=== PATIENT | female | born 1960 | race Caucasian/White ===

== ENCOUNTER 2017-03-02 14:19 | Inpatient (IN) | payer OTHER ==
[2017-03-02] MEDS ORDERED: NS 0.9% 1000 ML* 1,000 ML IV ONE (17:02)
[2017-03-02 17:34] LABS: Hematocrit 33 % (35-47); Hemoglobin 10.8 g/dl (12.0-16.0); Mean Corpuscular HGB Conc 33 g/dl (31-36); Mean Corpuscular Hemoglobin 27 pg (27-31); Mean Corpuscular Volume 83 fL (80-97); Mean Platelet Volume 6 um3 (7.4-10.4); Red Blood Count 3.98 10^6/ul (4.0-5.4); Red Cell Distribution Width 18 % (10.5-15); White Blood Count 6.4 10^3/ul (3.5-10.8)
[2017-03-02 17:49] LABS: ALT 15 U/L (7-52); AST 33 U/L (13-39); Albumin 4.2 g/dL (3.2-5.2); Alkaline Phosphatase 147 U/L (34-104); Amylase 20 U/L (29-103); Anion Gap 8 mmol/L (2-11); BUN/Creatinine Ratio 9.2 (8-20); Blood Urea Nitrogen 6 mg/dL (6-24); C Reactive Protein 39.71 mg/L (< 5.00); CO2 Carbon Dioxide 28 mmol/L (22-32); Chloride 103 mmol/L (101-111); Creatine Kinase 83 U/L (10-223); EGFR African American 121.7 (>60); EGFR Non-African American 94.6 (>60); Globulin 2.9 g/dL (2-4); Glucose 99 mg/dL (70-100); Lipase < 10 U/L (11.0-82.0); Potassium 3.6 mmol/L (3.5-5.0); Sodium 139 mmol/L (133-145); Total Protein 7.1 g/dL (6.4-8.9)
[2017-03-02] MEDS ORDERED: Acetaminophen TAB* 325 MG PO ONE (17:57)
--- NOTE | 2017-03-02 18:05 | RAD ---
INDICATION: Breast carcinoma 2005. Weight loss COMPARISON: None TECHNIQUE: An AP portable view obtained at 1739 hours is submitted. FINDINGS: Bones/Soft Tissues: There are diffuse osteolytic and osteoblastic metastasis. Cardiomediastinal: The cardiomediastinal silhouette is normal. Lungs: There are no infiltrates. Pleura: There are no pleural effusions. Other: None IMPRESSION: DIFFUSE OSTEOLYTIC AND OSTEOBLASTIC METASTASIS. LUNGS CLEAR.
--- NOTE | 2017-03-02 18:05 | RAD ---
INDICATION: Abdominal pain COMPARISON: None TECHNIQUE: Erect and supine views of the abdomen are submitted. FINDINGS: Bones: There are diffuse osteolytic and osteoblastic metastasis. No pathologic fracture is appreciated. Soft tissues: The soft tissues appear normal. The psoas margins are sharp. Bowel gas pattern: Normal Calcifications: There are no abnormal calcifications. Other: None IMPRESSION: DIFFUSE OSTEOLYTIC AND OSTEOBLASTIC METASTASIS.
[2017-03-02 18:21] LABS: Urine Bacteria 1+ (Absent); Urine Bilirubin Negative (Negative); Urine Glucose Negative (Negative); Urine Nitrite Negative (Negative); Urine Sperm Present (Absent)
[2017-03-02] MEDS ORDERED: Ondansetron INJ* 2 MG/ML VIAL IV ONE (18:53)
[2017-03-02] MEDS ORDERED: Morphine INJ* 2 MG/ML 1 ML CARPUJECT IV ONE (18:53)
--- NOTE | 2017-03-02 18:56 | ED ---
Emanuel Aguirre Benjamin, scribed for Jaskaran Evans MD on 03/02/17 at 1719 . Abdominal Pain/Female - HPI Summary HPI Summary: 56yo female c/o ED for decreased appetite, sudden weight loss of 10lb/week for the past 3 weeks and diffuse abdominal pain. Pt also reports generalized body aches, polyuria and polydipsia. Pt is in 12 years remission for breast CA. Pt is edentulous. No hx of DM but positive FHx of DM. - History of Current Complaint Chief Complaint: EDGeneral Stated Complaint: ENTIRE BODY PAIN Time Seen by Provider: 03/02/17 16:41 Hx Obtained From: Patient, Family/Hostage Negotiator Hx Last Menstrual Period: None since 11 years ago. ?: No Onset/Duration: Gradual Onset, Lasting Days Timing: Constant Severity Initially: Moderate Severity Currently: Moderate Pain Intensity: 4 Pain Scale Used: 0-10 Numeric Location: Diffuse Radiates: No Aggravating Factor(s): Nothing Alleviating Factor(s): Nothing Associated Signs and Symptoms: Positive: Urinary Symptoms - polyuria, Decreased Appetite Allergies/Adverse Reactions: Allergies Allergy/AdvReac Type Severity Reaction Status Date / Time Aspirin [ASA] Allergy Rash And Verified 06/27/13 14:28 Itching PMH/Surg Hx/FS Hx/Imm Hx Endocrine/Hematology History: Denies: Hx Diabetes, Hx Thyroid Disease Cardiovascular History: Denies: Hx Congestive Heart Failure, Hx Deep Vein Thrombosis, Hx Hypertension , Hx Myocardial Infarction, Hx Pacemaker/ICD Respiratory History: Denies: Hx Asthma, Hx Chronic Obstructive Pulmonary Disease (COPD), Hx Lung Cancer, Hx Pneumonia, Hx Pulmonary Embolism GI History: Denies: Hx Gall Bladder Disease, Hx Gastrointestinal Bleed, Hx Ulcer, Hx Urosepsis History: Denies: Hx Kidney Stones, Hx Renal Disease Neurological History: Denies: Hx Dementia, Hx Migraine, Hx Seizures, Hx Transient Ischemic Attacks (TIA) Psychiatric History: Reports: Hx Depression - She is on Zoloft for this. Denies: Hx Anxiety, Hx Schizophrenia, Hx Bipolar Disorder - Cancer History Cancer Type, Location and Year: Right Breast Cancer 2003, age 43 - Surgical History Surgery Procedure, Year, and Place: Right Mastectomy Infectious Disease History: No Infectious Disease History: Denies: Hx Hepatitis, Hx Human Immunodeficiency Virus (HIV), History Other Infectious Disease, Traveled Outside the [place] in Last 30 Days - Family History Known Family History: Positive: Diabetes Negative: Cardiac Disease, Hypertension - Social History Alcohol Use: None Substance Use Type: Reports: None Smoking Status (MU): Former Smoker Type: Cigarettes Review of Systems Positive: Other - sudden dramatic weight loss Eyes: Negative ENT: Negative Cardiovascular: Negative Respiratory: Negative Positive: Abdominal Pain, Other - decreased appetite Positive: frequency - increased Positive: Myalgia - body aches Skin: Negative Neurological: Negative Psychological: Normal All Other Systems Reviewed And Are Negative: Yes Physical Exam - Summary Physical Exam Summary: VITAL SIGNS: Reviewed. GENERAL: Patient is a well-developed and nourished female who is lying comfortable in the stretcher. Patient is not in any acute respiratory distress. HEAD AND FACE: No signs of trauma. No ecchymosis, hematomas or skull depressions. No sinus tenderness. EYES: PERRLA, EOMI x 2, No injected conjunctiva, no nystagmus. EARS: Hearing grossly intact. Ear canals and tympanic membranes are within normal limits. MOUTH: Oropharynx within normal limits. Edentulous. NECK: Supple, trachea is midline, no adenopathy, no JVD, no carotid bruit, no c- spine tenderness, neck with full ROM. CHEST: Symmetric, no tenderness at palpation LUNGS: Clear to auscultation bilaterally. No wheezing or crackles. CVS: Regular rate and rhythm, S1 and S2 present, no murmurs or gallops appreciated. ABDOMEN: Soft, non-tender. No signs of distention. No rebound no guarding, and no masses palpated. Bowel sounds are normal. EXTREMITIES: FROM in all major joints, no edema, no cyanosis or clubbing. NEURO: Alert and oriented x 3. No acute neurological deficits. Speech is normal and follows commands. SKIN: Dry and warm Triage Information Reviewed: Yes Vital Signs On Initial Exam: Initial Vitals Temp Pulse Resp BP Pulse Ox 99.9 F 96 20 137/94 98 03/02/17 14:24 03/02/17 14:24 03/02/17 14:24 03/02/17 14:24 03/02/17 14:24 Vital Signs Reviewed: Yes - Julianne Coma Scale Coma Scale Total: 15 Diagnostics - Vital Signs Vital Signs Temp Pulse Resp BP Pulse Ox 03/02/17 17:07 85 20 98 03/02/17 17:06 134/91 03/02/17 16:00 98.8 F 97 20 127/88 100 03/02/17 14:24 99.9 F 96 20 137/94 98 - Laboratory Lab Results: Lab Results 03/02/17 03/02/17 03/02/17 Range/Units 17:17 17:20 17:20 WBC (3.5-10.8) 10^3/ul RBC (4.0-5.4) 10^6/ul Hgb (12.0-16.0) g/dl Hct (35-47) % MCV (80-97) fL MCH (27-31) pg MCHC (31-36) g/dl RDW (10.5-15) % Plt Count (150-450) 10^3/ul MPV (7.4-10.4) um3 Neut % (Auto) (38-83) % Lymph % (Auto) (25-47) % [place] % (Auto) (1-9) % Eos % (Auto) (0-6) % Baso % (Auto) (0-2) % Absolute Neuts (auto) (1.5-7.7) 10^3/ul Absolute Lymphs (auto) (1.0-4.8) 10^3/ul Absolute Monos (auto) (0-0.8) 10^3/ul Absolute Eos (auto) (0-0.6) 10^3/ul Absolute Basos (auto) (0-0.2) 10^3/ul Absolute Nucleated RBC 10^3/ul Nucleated RBC % Sodium 139 (133-145) mmol/L Potassium 3.6 (3.5-5.0) mmol/L Chloride 103 (101-111) mmol/L Carbon Dioxide 28 (22-32) mmol/L Anion Gap 8 (2-11) mmol/L BUN 6 (6-24) mg/dL Creatinine 0.65 (0.51-0.95) mg/dL Est GFR ( Amer) 121.7 (>60) Est GFR (Non-Af Amer) 94.6 (>60) BUN/Creatinine Ratio 9.2 (8-20) Glucose 99 (70-100) mg/dL POC Glucose (mg/dL) 101 H (70-100) mg/dL Calcium 10.0 (8.6-10.3) mg/dL Magnesium 2.0 (1.9-2.7) mg/dL Total Bilirubin 0.40 (0.2-1.0) mg/dL AST 33 (13-39) U/L ALT 15 (7-52) U/L Alkaline Phosphatase 147 H (34-104) U/L Total Creatine Kinase 83 (10-223) U/L C-Reactive Protein 39.71 H (< 5.00) mg/L B-Natriuretic Peptide 74 ( - 100) pg/mL Total Protein 7.1 (6.4-8.9) g/dL Albumin 4.2 (3.2-5.2) g/dL Globulin 2.9 (2-4) g/dL Albumin/Globulin Ratio 1.4 (1-3) Amylase 20 L (29-103) U/L Lipase < 10 L (11.0-82.0) U/L Urine Color Urine Appearance Urine pH (5-9) Ur Specific [place] (1.010-1.030) Urine Protein (Negative) Urine Ketones (Negative) Urine Blood (Negative) Urine Nitrate (Negative) Urine Bilirubin (Negative) Urine Urobilinogen (Negative) Ur Leukocyte Esterase (Negative) Urine WBC (Auto) (Absent) Urine RBC (Auto) (Absent) Ur Squamous Epith Cells (Absent) Urine Bacteria (Absent) Urine Sperm (Absent) Urine Glucose (Negative) 03/02/17 03/02/17 Range/Units 17:20 17:57 WBC 6.4 (3.5-10.8) 10^3/ul RBC 3.98 L (4.0-5.4) 10^6/ul Hgb 10.8 L (12.0-16.0) g/dl Hct 33 L (35-47) % MCV 83 (80-97) fL MCH 27 (27-31) pg MCHC 33 (31-36) g/dl RDW 18 H (10.5-15) % Plt Count 354 (150-450) 10^3/ul MPV 6 L (7.4-10.4) um3 Neut % (Auto) 55.7 (38-83) % Lymph % (Auto) 33.2 (25-47) % [place] % (Auto) 8.8 (1-9) % Eos % (Auto) 1.4 (0-6) % Baso % (Auto) 0.9 (0-2) % Absolute Neuts (auto) 3.5 (1.5-7.7) 10^3/ul Absolute Lymphs (auto) 2.1 (1.0-4.8) 10^3/ul Absolute Monos (auto) 0.6 (0-0.8) 10^3/ul Absolute Eos (auto) 0.1 (0-0.6) 10^3/ul Absolute Basos (auto) 0.1 (0-0.2) 10^3/ul Absolute Nucleated RBC 0 10^3/ul Nucleated RBC % 0 Sodium (133-145) mmol/L Potassium (3.5-5.0) mmol/L Chloride (101-111) mmol/L Carbon Dioxide (22-32) mmol/L Anion Gap (2-11) mmol/L BUN (6-24) mg/dL Creatinine (0.51-0.95) mg/dL Est GFR ( Amer) (>60) Est GFR (Non-Af Amer) (>60) BUN/Creatinine Ratio (8-20) Glucose (70-100) mg/dL POC Glucose (mg/dL) (70-100) mg/dL Calcium (8.6-10.3) mg/dL Magnesium (1.9-2.7) mg/dL Total Bilirubin (0.2-1.0) mg/dL AST (13-39) U/L ALT (7-52) U/L Alkaline Phosphatase (34-104) U/L Total Creatine Kinase (10-223) U/L C-Reactive Protein (< 5.00) mg/L B-Natriuretic Peptide ( - 100) pg/mL Total Protein (6.4-8.9) g/dL Albumin (3.2-5.2) g/dL Globulin (2-4) g/dL Albumin/Globulin Ratio (1-3) Amylase (29-103) U/L Lipase (11.0-82.0) U/L Urine Color Yellow Urine Appearance Clear Urine pH 6.0 (5-9) Ur Specific [place] 1.004 L (1.010-1.030) Urine Protein Negative (Negative) Urine Ketones Negative (Negative) Urine Blood 1+ H (Negative) Urine Nitrate Negative (Negative) Urine Bilirubin Negative (Negative) Urine Urobilinogen Negative (Negative) Ur Leukocyte Esterase 3+ H (Negative) Urine WBC (Auto) Trace(0-5/hpf) (Absent) Urine RBC (Auto) Trace(0-2/hpf) (Absent) Ur Squamous Epith Cells Present H (Absent) Urine Bacteria 1+ H (Absent) Urine Sperm Present H (Absent) Urine Glucose Negative (Negative) Result Diagrams: 03/02/17 17:20 03/02/17 17:20 Lab Statement: Any lab studies that have been ordered have been reviewed, and results considered in the medical decision making process. - Radiology CXR Xray Interpretation: Positive (See Comments) - IMPRESSION: DIFFUSE OSTEOLYTIC AND OSTEOBLASTIC METASTASIS. LUNGS CLEAR. Radiology Interpretation Completed By: Radiologist - ED physician has reviewed this radiology report and agrees. Abdomin XR Xray Interpretation: Positive (See Comments) Radiology Interpretation Completed By: Radiologist - ED physician has reviewed this radiology report and agrees. - EKG 1721. Cardiac Rate: NL - 76bpm EKG Rhythm: Sinus Rhythm ST Segment: Normal Ectopy: None Abdominal Pain Fem Course/Dx - Course Course Of Treatment: In the ED course an IV access was obtained. Patient was placed in a marine operations coordinator. Patient was started with IV fluids. She was given Zofran, Tylenol and morphine for the pain. Labs without any significant abnormality except for slight anemia. CRP 30.7. EKG shows a NSR w/o ST elevations. CXR IMPRESSION: DIFFUSE OSTEOLYTIC AND OSTEOBLASTIC METASTASIS. LUNGS CLEAR. Abdominal X ray impression: IMPRESSION: DIFFUSE OSTEOLYTIC AND OSTEOBLASTIC METASTASIS. I discuss my physical exam, findings and test results with Dr. Harris from the hospitalist services and she agrees to admit patient to his services. Patient is hemodynamically stable alert and oriented x 3. - Diagnoses Differential Diagnosis: Positive: Constipation, Irritable Bowel Syndrome, Pneumonia, Urinary Tract Infection Provider Diagnoses: Osteoblastic metastasis Discharge - Discharge Plan Condition: Stable Disposition: ADMITTED TO [facility] The documentation as recorded by the Emanuel neil Benjamin accurately reflects the service I personally performed and the decisions made by me, Jaskaran Evans MD.
[2017-03-02] MEDS ORDERED: Morphine INJ* 2 MG/ML 1 ML SYRINGE (TWO MG - NEW SYRINGE VERSION) ONE (20:10)
[2017-03-02] MEDS ORDERED: Albuterol 2.5 MG/3 ML NEB.SOL* (0.083%) INH PRN (20:28)
[2017-03-02] MEDS ORDERED: Ondansetron INJ* 2 MG/ML VIAL IV PRN (20:28)
[2017-03-02] MEDS ORDERED: CMCS: Melatonin (NF) 3 MG TAB PO PRN (20:28)
[2017-03-02] MEDS ORDERED: Acetaminophen TAB* 325 MG PO PRN (20:28)
[2017-03-02] MEDS ORDERED: NS 0.9% 1000 ML* 1,000 ML IV SCH (20:30)
--- NOTE | 2017-03-02 21:52 | HP ---
H&P (Free Text) History and Physical: PCP: Beatriz Martinez MD Date/Time: 03/02/20172019 CC: chest & jaw pain HPI: Mrs Downey is a 56YO female HX breast CA 12 years ago treated with R mastectomy & chemoTX (no radioTX) who presents reporting onset 2-3 months ago of L jaw pain radiating down into the neck made worse by chewing and central chest discomfort which she has difficulty characterizing, but which is made worse by deep inspiration and heavy lifting. During this time period she has lost in excess of 20 pounds, now to the degree that her pants "just fall off". She denies any new lumps/bumps, bloody or black stools, F/C, or N/V. She does report recent development of N/T on the L side of the face. PMedHx breast CA 2004 treated with R mastectomy & chemoTX at [facility] Ambulatory Orders Nursing to reconcile. Hormone For Breast Cancer 11/06/15 One A Day Vitamin For Women 2 tab PO DAILY 11/06/15 Allergies Aspirin [ASA] Allergy (Verified 06/27/13 14:28) Rash And Itching PSurgHx R mastectomy tubal ligation SocHx: quit smoking 2004, no alcohol or recreational drugs; lives with her ; full code status FamHx: Mother passed in her 70s from CAD with DM2. Father is estranged. Of 5 brothers, 3 are alive and reportedly healthy, one of SIDS and another reportedly of neglect "starved". Of 2 half-sisters, both are thought to be healthy. ROS: as above, otherwise reviewed and all were negative vitals: Vital Signs Temp 36.6 C 03/02/17 22:38 Pulse 81 03/02/17 22:38 Resp 18 03/02/17 22:47 BP 144/81 03/02/17 22:38 Pulse Ox 99 03/02/17 22:38 Intake & Output 03/02/17 03/02/17 03/03/17 11:59 23:59 11:59 Intake Total 1000 Balance 1000 Weight 72.847 kg Intake: IV Fluids 1000 Other: Estimated Void Medium # Voids 1 Constitutional: NAD, normally developed, overweight white female HEENM: atraumatic; sclera/conjunctiva: non-icteric/clear; hearing: clinically intact; oropharynx: clear, mucosa moist Neck: soft tissue: non-tender; thyroid: normal Pulmonary: clear to auscultation bilaterally, good aeration, no accessory muscle use CV: RR/RR, normal S1S2, no carotid bruit, no jugular venous distention, 2+ B DP/ PT, no edema Abdominal: soft, non-distended, non-tender, no rebound/guarding/rigidity, normoactive bowel sounds, no hepatosplenomegaly or masses, no costovertebral angle tenderness Musculoskeletal: general: grossly intact; gait: stable Integumental: R mastectomy; otherwise normal appearance and texture of exposed skin Neurological cranial nerves III/IV/: symmetric light reflex, EOMI/PERRLA VII: slight L facial asymmetry VIII: hearing clinically intact IX/X: symmetric palatal motion, no dysarthria XII: midline tongue protrusion, normal voice articulation Psychiatric orientation: AA&O to PPS affect: calm, flat mood: cooperative eye contact: fair to good content: reliable responses: timely insight: fair Testing: Lab Results 03/02/17 03/02/17 03/02/17 Range/Units 17:17 17:20 17:20 WBC (3.5-10.8) 10^3/ul RBC (4.0-5.4) 10^6/ul Hgb (12.0-16.0) g/dl Hct (35-47) % MCV (80-97) fL MCH (27-31) pg MCHC (31-36) g/dl RDW (10.5-15) % Plt Count (150-450) 10^3/ul MPV (7.4-10.4) um3 Neut % (Auto) (38-83) % Lymph % (Auto) (25-47) % [place] % (Auto) (1-9) % Eos % (Auto) (0-6) % Baso % (Auto) (0-2) % Absolute Neuts (auto) (1.5-7.7) 10^3/ul Absolute Lymphs (auto) (1.0-4.8) 10^3/ul Absolute Monos (auto) (0-0.8) 10^3/ul Absolute Eos (auto) (0-0.6) 10^3/ul Absolute Basos (auto) (0-0.2) 10^3/ul Absolute Nucleated RBC 10^3/ul Nucleated RBC % Sodium 139 (133-145) mmol/L Potassium 3.6 (3.5-5.0) mmol/L Chloride 103 (101-111) mmol/L Carbon Dioxide 28 (22-32) mmol/L Anion Gap 8 (2-11) mmol/L BUN 6 (6-24) mg/dL Creatinine 0.65 (0.51-0.95) mg/dL Est GFR ( Amer) 121.7 (>60) Est GFR (Non-Af Amer) 94.6 (>60) BUN/Creatinine Ratio 9.2 (8-20) Glucose 99 (70-100) mg/dL POC Glucose (mg/dL) 101 H (70-100) mg/dL Calcium 10.0 (8.6-10.3) mg/dL Magnesium 2.0 (1.9-2.7) mg/dL Total Bilirubin 0.40 (0.2-1.0) mg/dL AST 33 (13-39) U/L ALT 15 (7-52) U/L Alkaline Phosphatase 147 H (34-104) U/L Total Creatine Kinase 83 (10-223) U/L C-Reactive Protein 39.71 H (< 5.00) mg/L B-Natriuretic Peptide 74 ( - 100) pg/mL Total Protein 7.1 (6.4-8.9) g/dL Albumin 4.2 (3.2-5.2) g/dL Globulin 2.9 (2-4) g/dL Albumin/Globulin Ratio 1.4 (1-3) Amylase 20 L (29-103) U/L Lipase < 10 L (11.0-82.0) U/L Urine Color Urine Appearance Urine pH (5-9) Ur Specific [place] (1.010-1.030) Urine Protein (Negative) Urine Ketones (Negative) Urine Blood (Negative) Urine Nitrate (Negative) Urine Bilirubin (Negative) Urine Urobilinogen (Negative) Ur Leukocyte Esterase (Negative) Urine WBC (Auto) (Absent) Urine RBC (Auto) (Absent) Ur Squamous Epith Cells (Absent) Urine Bacteria (Absent) Urine Sperm (Absent) Urine Glucose (Negative) 03/02/17 03/02/17 Range/Units 17:20 17:57 WBC 6.4 (3.5-10.8) 10^3/ul RBC 3.98 L (4.0-5.4) 10^6/ul Hgb 10.8 L (12.0-16.0) g/dl Hct 33 L (35-47) % MCV 83 (80-97) fL MCH 27 (27-31) pg MCHC 33 (31-36) g/dl RDW 18 H (10.5-15) % Plt Count 354 (150-450) 10^3/ul MPV 6 L (7.4-10.4) um3 Neut % (Auto) 55.7 (38-83) % Lymph % (Auto) 33.2 (25-47) % [place] % (Auto) 8.8 (1-9) % Eos % (Auto) 1.4 (0-6) % Baso % (Auto) 0.9 (0-2) % Absolute Neuts (auto) 3.5 (1.5-7.7) 10^3/ul Absolute Lymphs (auto) 2.1 (1.0-4.8) 10^3/ul Absolute Monos (auto) 0.6 (0-0.8) 10^3/ul Absolute Eos (auto) 0.1 (0-0.6) 10^3/ul Absolute Basos (auto) 0.1 (0-0.2) 10^3/ul Absolute Nucleated RBC 0 10^3/ul Nucleated RBC % 0 Sodium (133-145) mmol/L Potassium (3.5-5.0) mmol/L Chloride (101-111) mmol/L Carbon Dioxide (22-32) mmol/L Anion Gap (2-11) mmol/L BUN (6-24) mg/dL Creatinine (0.51-0.95) mg/dL Est GFR ( Amer) (>60) Est GFR (Non-Af Amer) (>60) BUN/Creatinine Ratio (8-20) Glucose (70-100) mg/dL POC Glucose (mg/dL) (70-100) mg/dL Calcium (8.6-10.3) mg/dL Magnesium (1.9-2.7) mg/dL Total Bilirubin (0.2-1.0) mg/dL AST (13-39) U/L ALT (7-52) U/L Alkaline Phosphatase (34-104) U/L Total Creatine Kinase (10-223) U/L C-Reactive Protein (< 5.00) mg/L B-Natriuretic Peptide ( - 100) pg/mL Total Protein (6.4-8.9) g/dL Albumin (3.2-5.2) g/dL Globulin (2-4) g/dL Albumin/Globulin Ratio (1-3) Amylase (29-103) U/L Lipase (11.0-82.0) U/L Urine Color Yellow Urine Appearance Clear Urine pH 6.0 (5-9) Ur Specific [place] 1.004 L (1.010-1.030) Urine Protein Negative (Negative) Urine Ketones Negative (Negative) Urine Blood 1+ H (Negative) Urine Nitrate Negative (Negative) Urine Bilirubin Negative (Negative) Urine Urobilinogen Negative (Negative) Ur Leukocyte Esterase 3+ H (Negative) Urine WBC (Auto) Trace(0-5/hpf) (Absent) Urine RBC (Auto) Trace(0-2/hpf) (Absent) Ur Squamous Epith Cells Present H (Absent) Urine Bacteria 1+ H (Absent) Urine Sperm Present H (Absent) Urine Glucose Negative (Negative) ECG, personally reviewed: NSR rate 78, mild ST depression V4-5; no comparison CXR, personally reviewed: IMPRESSION: DIFFUSE OSTEOLYTIC AND OSTEOBLASTIC METASTASIS. LUNGS CLEAR. XRY abdomen, personally reviewed: IMPRESSION: DIFFUSE OSTEOLYTIC AND OSTEOBLASTIC METASTASIS. Impression: 56F HX breast CA 12 years ago TX via R mastectomy & chemoTX presents with L jaw & chest pain of 2-3 months duration associated with N/T of L face and >20 pounds weight loss found to have diffuse osteolytic and osteoblastic metastatic disease DIAGNOSIS & PLAN Primary metastatic cancer : HX R breast CA treated via R mastectomy & chemoTX in 2004 at [facility] : request old records from [facility] : pain control : CT brain WO & chest/abd/pelvis W in AM : consider oncology consult in AM : supportive care Admission Rational: inpatient for pain control and initiation of work up of metastatic disease DVTp: heparin SQ & SCDs Code Status: full HCP:
[2017-03-02] MEDS: Docusate CAP* 100 MG PO SCH (22:47)
[2017-03-02] MEDS: oxyCODONE TAB* 5 MG TAB PO PRN (22:47)
[2017-03-03] MEDS: oxyCODONE TAB* 5 MG TAB PO PRN ×2 (04:28→20:46)
[2017-03-03] MEDS: Omeprazole CAP* 20 MG PO SCH (06:10)
[2017-03-03] MEDS: Heparin VIAL(*) 5000 UNITS/ML VIAL (FIVE THOUSAND) SUBCUT SCH ×3 (06:10→22:15)
[2017-03-03 07:11] LABS: Hematocrit 31 % (35-47); Hemoglobin 10.3 g/dl (12.0-16.0)
[2017-03-03] MEDS ORDERED: Iohexol 300* (CONTRAST) 10 ML SDV IV ONE (08:29)
[2017-03-03] MEDS ORDERED: Pneumococcal *Vac Polyvalent 0.5 ML VIAL IM ONE (09:00)
[2017-03-03] MEDS: fentaNYL* 50 MCG/ML 2 ML VIAL (100 MCG VIAL) IV SLOW PU PRN ×2 (09:09→23:49)
--- NOTE | 2017-03-03 11:10 | RAD ---
HISTORY: Breast cancer, metastatic cancer COMPARISONS: None relevant available at time of dictation TECHNIQUE: Multiple contiguous axial CT scans were obtained of the chest, abdomen, and pelvis, without intravenous contrast enhancement. Coronal and sagittal multiplanar reformations are submitted for review.. Oral contrast was administered. FINDINGS: The study is limited by the lack of intravenous contrast. This limits evaluation of the solid organs and vasculature. CHEST NECK AND THYROID: The lower neck and thyroid are unremarkable. CHEST WALL: A right breast prosthesis is noted. Surgical clips are noted in the right axilla. There is no lower cervical, supraclavicular, or axillary lymphadenopathy by size criteria. HEART AND PERICARDIUM: The heart is unremarkable. AORTA AND PULMONARY VASCULATURE: The aorta and pulmonary vasculature are normal. MEDIASTINUM: There is no mediastinal lymphadenopathy by size criteria. TAYE: Evaluation of the taye is limited by the lack of intravenous contrast. There is no obvious hilar lymphadenopathy by size criteria. AIRWAY AND ESOPHAGUS: The airway is unremarkable, without endobronchial filling defect. The esophagus is grossly normal. LUNG PARENCHYMA: There is a 1.5 cm nodule of the left lower lobe on axial image 40. There are scattered nodules of the right lung measuring up to 0.3 cm in size. A players club representative lesion can be seen in the periphery on axial image 32.. PLEURA: There is a small right pleural effusion. There is left pleural thickening. BONES AND SOFT TISSUES: There is diffuse sclerosis of the axial and appendicular skeleton consistent with diffuse osteoblastic metastatic disease. ABDOMEN/PELVIS: LIVER: The liver is normal in shape, size, contour, and attenuation. BILE DUCTS: There is no intrahepatic or extrahepatic biliary dilatation. GALLBLADDER: The gallbladder is normal, without pericholecystic inflammatory change. PANCREAS: The pancreas is normal, without mass or ductal dilatation. SPLEEN: Normal in size and appearance. UPPER GI TRACT: Evaluation of the gastrointestinal tract is limited by incomplete gastric distention. The upper GI tract is unremarkable. SMALL BOWEL \T\ MESENTERY: The small bowel is normal in contour, course, and caliber. There is no obstruction or dilatation. COLON: The colon is normal in contour, course, caliber. There is no pericolonic inflammatory change. ADRENALS: Normal bilaterally. KIDNEYS: There are multiple exophytic low-attenuation renal lesions. Largest are consistent with simple cysts. The others are too small to definitively characterize. BLADDER: The bladder is smooth in contour. PELVIC ORGANS: There is a low-attenuation lesion of the body of the uterus consistent with a fibroid measuring 3.6 cm in size. The ovaries are heterogeneous and appears somewhat enlarged bilaterally, measuring up to 4.7 cm on the left. AORTA: The aorta is normal. IVC: Unremarkable LYMPH NODES: There is no lymphadenopathy by size criteria. ABDOMINAL WALL: There is no evidence for abdominal wall hernia. BONES AND SOFT TISSUES: There is diffuse sclerosis of the axial and appendicular skeleton. There is a partially calcified fat-containing lesion of the left iliac is muscle which may reflect the sequela of previous injury versus a hamartoma OTHER: There is a small amount of ascites, predominantly perisplenic and perihepatic and pelvic. IMPRESSION: 1. DIFFUSE SCLEROSIS OF THE SKELETON CONSISTENT WITH DIFFUSE OSTEOBLASTIC METASTATIC DISEASE. 2. THERE IS A 1.5 CM NODULE OF THE LEFT LOWER LOBE WITH DIFFUSE NODULARITY OF THE RIGHT LUNG MEASURING UP TO 0.3 CM, CONCERNING FOR METASTATIC DISEASE GIVEN THE HISTORY OF MALIGNANCY. 3. THERE IS A SMALL RIGHT PLEURAL EFFUSION WITH LEFT PLEURAL THICKENING. 4. THERE ARE MULTIPLE EXOPHYTIC RENAL LESIONS, LIKELY REPRESENTING CYSTS, THOUGH THE NONCONTRAST CT IMAGING APPEARANCE IS INDETERMINATE. CONSIDER FURTHER EVALUATION WITH CONTRAST-ENHANCED CT OR MRI OF THE ABDOMEN OR ULTRASOUND OF THE KIDNEYS. 5. THE UTERUS IS FIBROID. 6. THE OVARIES APPEAR HETEROGENEOUS AND SOMEWHAT ENLARGED. RECOMMEND CONSIDERATION OF FURTHER EVALUATION WITH DEDICATED IMAGING OF THE PELVIS, INCLUDING ULTRASOUND OF THE PELVIS. 7. ASCITES.
--- NOTE | 2017-03-03 11:32 | CONSULT ---
Consultation - Reason for Consultation Reason for Consultation: diffuse bony lesions with a history of breast cancer Ordering Provider: Daniel Funez Chief Complaint: back and leg pain History of Present Illness: 56 yo F w PMH of right breast cancer currently on Aromasin presenting with back and leg pain and found to have diffuse bony disease. I have hospital records for Lauren from [place] including a pathology report from 08/2006 confirming a 6 cm poorly differentiated invasive lobular carcinoma with 3/6 lymph nodes positive. The margins were clear. She did not have postmastectomy RT despite the T3 lesion. She had 6 cycles of "some type" of chemotherapy followed by reconstruction and then hormonal therapy which she has now been on for 10 years. She does not remember the name of her oncologist or the last time that she saw him. 3 months ago she developed bilateral thigh numbness and tingling. She went to her primary but reports that she was told she "was fine". She started to develop lower back and thigh pain as well as muscle spasms. She has had worsening headaches over the last month and blurred vision and nausea for the last 3 days. She has had 2 falls which she reports are related to sharp pains in her legs causing them to give out. She is currently on fentanyl IV and oxcodone PO with excellent pain control. She is very anxious to go home. Allergies/Medications Medication: Home Medications Medication Instructions Recorded Confirmed Type Hormone For Breast Cancer 11/06/15 History One A Day Vitamin For Women 2 tab PO DAILY 11/06/15 History Allergies/Adverse Reactions: Allergies Allergy/AdvReac Type Severity Reaction Status Date / Time Aspirin [ASA] Allergy Rash And Verified 03/03/17 08:26 Itching History - Past Medical History Other History: COPD. Breast cancer. sp mastectomy and full axillary dissection - Family History Hx Family Cancer: No - Social History Hx Alcohol Use: No Hx Tobacco Use: Yes - quit 10 yrs ago Marital Status: Review of Systems - Review of Systems Constitutional Symptoms: Positive: Weight Loss, Fatigue Dermatology: Positive: Normal HEENT: Positive: Normal Eyes: Positive: Other - blurred vision Thyroid: Positive: Normal Pulmonary: Positive: Normal Cardiology: Positive: Normal Gastroenterology: Positive: Nausea, Anorexia Musculoskeletal: Positive: Low Back Pain, Other - leg pain Endocrinology: Positive: Normal Neurology: Positive: Headache, Change in Vision, Dizziness, Numbness\\ Paresthesiae Psychiatry: Positive: Normal Physical Exam - Physical Exam Physical Examination: Vital Signs Temp Pulse Resp BP Pulse Ox 98.3 F 87 17 145/90 100 03/03/17 08:10 03/03/17 08:10 03/03/17 09:09 03/03/17 08:10 03/03/17 03:56 lying flat in nad perr eomi op-poor dentition CTA bl s1 s2 nl soft nt +bs no le edema A+O x 3, nonfocal neurological exam no NAOMI right breast implant Results - Lab Results Lab Results: 03/03/17 06:21 Hgb 10.3 L Hct 31 L Assessment and Plan Impression: 56 yo F w PMH of T3N1M0 ILC ER+ on AI therapy presenting with leg pain, neuropathy, back pain and headaches and found to have diffusely metastatic bony disease. We discussed this at length. Though it is entirely possible and even likely that she has recurrent breast cancer, however it is also possible that she has a new malignancy (particularly with the lung lesion and smoking history) . I would like to get an MRI of the brain, thoracic and LS spines urgently today to rule out cord compression or TIP FINISHER mets. She will need biopsy of some site, though I wonder if we could even do a bone marrow biopsy given the extent of disease in her sacral spine. I will continue to follow closely with you.
[2017-03-03] MEDS ORDERED: Gadoteridol* (CONTRAST) 279.3 MG/ML 10 ML IV ONE (14:39)
[2017-03-03] MEDS: Docusate CAP* 100 MG PO SCH ×2 (14:50→21:00)
--- NOTE | 2017-03-03 15:06 | RAD ---
Indication: Metastatic breast cancer. Bilateral ovarian lesions on CT. To morphology calcification at the LEFT ovarian lesion on CT consistent with a dermoid. Uterine fibroid. Comparison: March 03, 2017 CT. Technique: Transvaginal pelvic ultrasound. Report: 7.2 x 4.7 x 6.5 cm anteverted uterus is remarkable for a 3.9 x 3.2 x 3.7 cm fundal myometrial fibroid. 5 mm endometrium. Moderate volume of free pelvic fluid. 5.4 x 2.9 x 3.3 cm RIGHT ovary with documented vascular flow is without visualized focal lesions. 4.7 x 2.8 x 3.0 cm LEFT ovary with documented vascular flow is without visualized focal lesions. Conspicuity LEFT ovary is limited due to bowel gas. IMPRESSION: 1. 5.4 x 2.9 x 3.3 cm RIGHT ovary without visualized focal lesions. 2. The LEFT ovary is not well visualized due to bowel gas. The calcification at the LEFT ovary with morphology highly suspicious for a tooth indicating a dermoid cyst evident on CT is not visualized on ultrasound likely on a technical basis. 3. Uterine fibroid. 4. Moderate pelvic ascites.
--- NOTE | 2017-03-03 20:57 | RAD ---
HISTORY: History of breast cancer, numbness, headache, blurred vision, fall COMPARISONS: None TECHNIQUE: The following sequences were obtained of the head: Sagittal T1-weighted images, axial T2-weighted images, axial FLAIR images, axial susceptibility weighted images, axial T1-weighted images. Additionally, axial diffusion-weighted images were obtained with calculated apparent diffusion coefficients. Additionally, sagittal, coronal, and axial T1-weighted images were obtained after contrast enhancement with a gadolinium-based intravenous contrast agent. FINDINGS: HEMORRHAGE/INFARCT: There is no hemorrhage or acute infarct. MASSES/SHIFT: There is no mass or shift. EXTRA-AXIAL SPACES/MENINGES: There is diffuse smooth pachymeningeal enhancement with mild thickening. SULCI AND VENTRICLES: The sulci and ventricles are normal in size and position for the patient's stated age. CEREBRUM: There is a small nonenhancing high T1 focus within the left basal ganglia. There is no associated vasogenic edema. BRAINSTEM: There are no focal parenchymal abnormalities. CEREBELLUM: There are no focal parenchymal abnormalities. The cerebellar tonsils are normal in size and position. SELLA: The sella is normal. PINEAL: The pineal region is clear. CP ANGLE/TEMPORAL BONES: The labyrinthine structures are grossly normal. VESSELS: Normal flow-voids are noted within the visualized vertebral vasculature. DIFFUSION ABNORMALITIES: There are no diffusion abnormalities. PARANASAL SINUSES/MASTOIDS: There are bilateral mastoid effusions. ORBITS: The orbits are unremarkable. BONES AND SOFT TISSUE: There is diffuse low T1 signal within the visualized skeleton OTHER: None IMPRESSION: 1. DIFFUSE OSTEOBLASTIC METASTATIC DISEASE. 2. THERE IS DIFFUSE DURAL THICKENING AND ENHANCEMENT. THIS CAN BE SEEN IN THE SETTING OF INTRACRANIAL HYPOTENSION, INCLUDING AFTER LUMBAR PUNCTURE. GIVEN THE HISTORY OF MALIGNANCY, DURAL METASTATIC DISEASE IS WITHIN THE DIFFERENTIAL. 3. THERE IS A SMALL NONENHANCING FOCUS HIGH T1 SIGNAL WITHIN THE LEFT BASAL GANGLIA WHICH MAY REFLECT A FOCUS OF CALCIFICATION. THERE IS NO ASSOCIATED VASOGENIC EDEMA OR SPACE-OCCUPYING LESION TO SUGGEST METASTATIC DISEASE TO THE BRAIN. 4. BILATERAL MASTOID EFFUSIONS
--- NOTE | 2017-03-03 21:03 | RAD ---
HISTORY: Breast cancer, metastatic disease, thigh numbness, recent falls COMPARISONS: None relevant available at the time of dictation TECHNIQUE: The following sequences were obtained of the lumbar spine: Sagittal and axial T1- and T2-weighted images, coronal T2-weighted images, and sagittal STIR images. Additionally, axial and sagittal T1 weighted images were obtained after contrast enhancement with a gadolinium-based intravenous contrast agent.. FINDINGS: SPINAL CORD, CONUS, AND CAUDA EQUINA: The visualized spinal cord, conus, and cauda equina are normal in caliber, position, and signal intensity. ALIGNMENT: The alignment is normal. VERTEBRAL BODIES: There is diffuse low T1 and T2 signal throughout the visualized axial skeleton consistent with diffuse osteoblastic metastatic disease. The vertebral bodies are preserved in height. There is no appreciable epidural extension of tumor. JOINTS: There is facet hypertrophic change along the lower lumbar spine MUSCULATURE: Unremarkable INTERVERTEBRAL DISCS: There is mild diffuse loss of intervertebral disc height and T2 signal throughout the spine. AXIAL IMAGES: T12-L1: There is a mild disc bulge. There is no significant neural foraminal narrowing or central canal stenosis. L1-L2: There is a small right paracentral disc protrusion measuring 0.3 cm in depth. There is no significant neural foraminal narrowing or central canal stenosis. L2-L3: There is bilateral facet hypertrophy. There is no significant neural foraminal narrowing or central canal stenosis. L3-L4: There is bilateral facet hypertrophy. There is mild right neural foraminal narrowing. There is no significant central canal stenosis. L4-L5: There is bilateral facet hypertrophy. There is mild right neural foraminal narrowing. There is no significant central canal stenosis. L5-S1: There is bilateral facet osteoarthritis. There is mild left neural foraminal narrowing. There is no significant central canal stenosis. SOFT TISSUES: A simple right renal cyst is noted OTHER: There is heterogeneous enhancement of the vertebral bodies. IMPRESSION: 1. DIFFUSE OSTEOBLASTIC METASTATIC DISEASE. 2. MILD DEGENERATIVE DISC DISEASE AND OSTEOARTHRITIS. 3. THERE IS MILD NEURAL FORAMINAL NARROWING DESCRIBED ABOVE. THERE IS NO SIGNIFICANT CENTRAL CANAL STENOSIS. 4. THERE IS NO APPRECIABLE EPIDURAL EXTENSION OF TUMOR.
--- NOTE | 2017-03-03 21:06 | RAD ---
HISTORY: Metastatic breast cancer, fall COMPARISONS: None TECHNIQUE: The following sequences were obtained of the thoracic spine: Sagittal and axial T1- and T2-weighted images, coronal T2-weighted images, and sagittal STIR images. Additionally, axial and sagittal T1 weighted images were obtained after contrast enhancement with a gadolinium-based intravenous contrast agent.. FINDINGS: Localization is based on counting from C2 SPINAL CORD, CONUS, AND CAUDA EQUINA: The visualized spinal cord, conus, and cauda equina are normal in caliber, position, and signal intensity. ALIGNMENT: The alignment is normal. VERTEBRAL BODIES: There is diffuse low T1 and T2 signal throughout the axial skeleton consistent with diffuse osteoblastic metastatic disease. The vertebral bodies are preserved in height. There is no appreciable epidural extension of tumor. JOINTS: There is osteoporosis of the costovertebral articulations. MUSCULATURE: Unremarkable INTERVERTEBRAL DISCS: There is mild diffuse loss of intervertebral disc height and T2 signal throughout the spine. AXIAL IMAGES: There are small scattered disc protrusions. There is no significant neural foraminal narrowing or central canal stenosis. SOFT TISSUES: There is a right pleural effusion. OTHER: There is heterogeneous enhancement of the vertebral bodies. IMPRESSION: 1. DIFFUSE OSTEOBLASTIC METASTATIC DISEASE. 2. MILD DEGENERATIVE DISC DISEASE AND OSTEOARTHRITIS. NO SIGNIFICANT NEURAL FORAMINAL NARROWING OR CENTRAL CANAL STENOSIS. 3. RIGHT PLEURAL EFFUSION.
[2017-03-04] MEDS: Omeprazole CAP* 20 MG PO SCH (05:48)
[2017-03-04] MEDS: oxyCODONE TAB* 5 MG TAB PO PRN (05:48)
[2017-03-04] MEDS: Heparin VIAL(*) 5000 UNITS/ML VIAL (FIVE THOUSAND) SUBCUT SCH (05:52)
[2017-03-04 07:42] VITALS: BP 142/71
--- NOTE | 2017-03-04 09:01 | DS ---
- Discharge Summary ADMIT DATE: 03/02/17 DISCHARGE DATE: 03/04/17 DISCHARGE DIAGNOSIS: 1. Widely metastatic cancer, unknown primary 2. ?dural metastases/leptomeningeal carcinomatosis 3. history of breast cancer DISCHARGE MEDICATIONS: Home Medications Medication Instructions Recorded Confirmed Type Hormone For Breast Cancer 11/06/15 History One A Day Vitamin For Women 2 tab PO DAILY 11/06/15 History Docusate CAP* [Colace Cap*] 200 mg PO BID #60 cap 03/04/17 Rx oxyCODONE TAB* [Roxycodone TAB 5 5 mg PO Q4H PRN #180 tab MDD 6 tabs 03/04/17 Rx mg*] DISCHARGE FOLLOW UP: 1. Dr. Mohr 03/10 at 12:45 pm HOSPITAL COURSE: See full admit H+P and my consult note from yesterday. Lauren was admitted on 03/02 for falls and pain. Her pain was very well controlled on oxycodone and 2 doses of IV fentanyl. She had noncontrast CT C/A/ P which revealed a 1.5 cm left lower lobe lung nodule, several smaller (~3 mm) right lung nodules and bilateral pleural effusions. MRI brain, thoracic and lumbar spine showed concern for diffuse dural thickening suggestive of possible metastatic disease. Given this and her symptoms of blurred vision, "whoosing sound" in her ears and headaches I have arranged for a lumbar puncture to rule out leptomeningeal carcinomatosis. She will have that prior to discharge today. Given the likelihood of a nondiagnostic tap I have also arranged for a CT guided left lung biopsy. Unfortunately radiology was unable to coordinate this prior to discharge and so she will come back as an outpatient tomorrow. I will see her in my office next Wednesday to review and for further recommendations. >30 mins spent on this discharge >50% in face to face counseling
[2017-03-04] MEDS: Docusate CAP* 100 MG PO SCH (09:31)
[2017-03-04 12:58] LABS: CSF Glucose 74 mg/dL (40-70)
[2017-03-04 13:13] LABS: BF RBC Count #1 0; BF RBC Count #2 0; BF WBC Count #1 0; BF WBC Count #2 0; Body Fluid Appearance Clear; Body Fluid WBC 0 /mcL; RBC counts within 6%? Yes; WBC counts within 15%? Yes
--- NOTE | 2017-03-04 14:38 | PN ---
HOSPITALIST PROGRESS NOTE: DATE OF VISIT: 03/03/17 PROVIDER: Daniel Funez MD SUBJECTIVE: The patient presenting with history of breast cancer diagnosed in 2004, treated at [facility] with right mastectomy and chemotherapy and then Aromasin. The patient and family who are at the bedside they attest that the patient has been falling 1 to 2 times a week for the last several weeks. She has lost 60 pounds over the last 3 months dropping from 220 pounds to 160 pounds. She complains of a bad headache, shooting pains down her bilateral legs, and her legs occasionally just give out causing these falls. She had been using a cane but not always compliant with that. The patient also has kind of diffuse pain throughout her body. She followed up with her primary care doctor, Dr. Martinez, at [place], who was concerned that maybe she had restless legs syndrome. The patient denies shortness of breath or cough, had attested to central chest discomfort. OBJECTIVE: Vital Signs: Temperature 98.3, blood pressure 145/90, heart rate 87 , respiratory rate 18, satting 100% on room air. General: In no acute distress. Sitting on the side of bed surrounded by multiple family members. HEENT: Normocephalic, atraumatic. No scleral icterus. Pupils equally round and reactive to light. Extraocular motions intact. Neck: Supple. Mucous membranes moist. No cervical lymphadenopathy. Respiratory: Clear to auscultation bilaterally with no wheezing, rales, or rhonchi. Cardiovascular: Regular rate and rhythm. No murmurs, rubs, or gallops. Abdomen: Soft, nontender, nondistended. No paroxysmal signs or guarding. Extremities: Warm and well perfused. No peripheral edema. Neurological: Sensation intact. Cranial nerves II through XII intact. Batch Room Technician strength intact bilaterally. Deltoids, biceps 5/5 strength. Hip flexors at least 4+/5 bilaterally. Dorsiflexion and plantar flexion of foot intact bilaterally. Sensation intact. Skin: No lesions, no rashes. DIAGNOSTIC STUDIES/LAB DATA: White count 10.3, platelets 354, hemoglobin 10.3, hematocrit 31. Sodium 139, chloride 103, BUN 6, potassium 3.6, bicarb 28, creatinine 0.65, glucose 99, magnesium 2.0. Urinalysis: 3+ leukocyte esterase , 1+ bacteria. Magnesium 2.0. Imaging: Chest x-ray and abdominal x-ray with diffuse lytic and blastic lesions. CT abdomen and pelvis with p.o. contrast demonstrates ascites and a 1.5-cm nodule in the left lower lung. Small right pleural effusion. Thoracic and lumbar MRIs with diffuse osteoblastic lesions, no epidural tumor extension. L1-L2 with a 0.3-cm right-sided displacement. No central cord displacement. MRI brain with diffuse dural thickening and left basal ganglion calcification. ASSESSMENT AND PLAN: Lauren Downey is a 56-year-old female with past medical history of breast cancer (ILC with 3 of 6 lymph node positive), status post mastectomy and chemotherapy and then Aromasin, who presents with diffuse body pains, frequent falls, headache, and found to have diffuse osteolytic and osteoblastic bony lesions throughout the spine along with left lower lobe 1.5- cm nodule and a small right pleural effusion. 1. Metastatic osteoblastic and osteolytic lesions of unknown primary with concern for recurrence of previous ILC breast cancer, appreciate Hematology/ Oncology recommendations of Dr. Madison Mohr, who has been guiding imaging therapy. We will proceed to attempt biopsy, either bone or the lung nodule. If that is unsuccessful, we will discuss with Dr. Mohr, desired biopsy strategy an outpatient. Also of note, was also found on transvaginal ultrasound to have dermoid cyst with possible 2 near the left ovary. After biopsy, the patient likely could be discharged home. Depending on goals of care could pursue potential palliative treatment, but must wait for tissue diagnosis before final plans on those lines. 2. Frequent falls. The patient without evidence of central spinal canal stenosis. There is diffuse dural thickening on brain MRI but no obvious signs of intercerebral metastatic brain disease. Consider physical therapy evaluation and walker as an assistive device going home. 3. Headaches. Tylenol p.r.n. 4. Diffuse body pain likely secondary to diffuse osteolytic and osteoblastic bone metastases. Pain control. The patient transitioned to Inpatient Medicine for continued workup of metastatic lesions. [id number]/[facility] #: [id number] [facility] HOSPITALKlyee
[2017-03-04 15:08] LABS: Body Fluid Total Cells Counted 15
== END 2017-03-04 13:45 | disposition home health service (06) | DRG 343 ==
LOC: ED 14:19 → MED 20:28
PROVIDERS: ADMIT Hospitalist; ATTEND Internal Medicine Hematology & Oncology
PROC: 009U3ZX Drainage of Spinal Canal, Percutaneous Approach, Diagnostic (ICD-10-PCS; principal; 2017-03-04)
DX: C79.51 Secondary malignant neoplasm of bone (principal); J90 Pleural effusion, not elsewhere classified; M89.58 Osteolysis, other site; R51 Headache; J44.9 Chronic obstructive pulmonary disease, unspecified; G62.9 Polyneuropathy, unspecified; R91.1 Solitary pulmonary nodule; R40.2412 Glasgow coma scale score 13-15, at arrival to emergency department; F32.9 Major depressive disorder, single episode, unspecified; Z85.3 Personal history of malignant neoplasm of breast; Z90.11 Acquired absence of right breast and nipple; Z83.3 Family history of diabetes mellitus; Z87.891 Personal history of nicotine dependence; Z98.51 Tubal ligation status; Z92.21 Personal history of antineoplastic chemotherapy; Z88.8 Allergy status to other drugs, medicaments and biological substances; Z82.49 Family history of ischemic heart disease and other diseases of the circulatory system; Z91.81 History of falling
CPT/HCPCS: 36415; 70553; 71010; 71250; 72157; 72158; 74020; 74176; 76830; 80053; 81003; 81015; 82150; 82550; 82945; 83690; 83735; 83880; 84157; 85014; 85018; 85025; 85610; 85730; 86140; 87070; 87086; 87205; 89051; 90732; 93005; 99223; A9270-GY; A9579; J1644; J2270; J2405; J3010

== ENCOUNTER 2019-03-30 05:36 | Day surgery (SDC) | payer OTHER ==
[~2019-03-30 05:36] MED LIST: Buffered Lidocaine 1% SYRIN* 1 ML/SYRINGE INTRADERM ONE
[2019-03-30] MEDS ORDERED: Lactated Ringers 1000 ML Bag* 1,000 ML IV SCH (06:00)
[2019-03-30] MEDS ORDERED: Acetaminophen TAB* 325 MG PO ONE (06:00)
[2019-03-30] MEDS ORDERED: Acetaminophen TAB* 325 MG ONE (06:07)
[2019-03-30] MEDS ORDERED: ceFAZolin 2 GM in NS PREMIX(*) 2 GM/100 ML BAG IVPB ONE (06:07)
[2019-03-30] MEDS ORDERED: Midazolam* 1 MG/ML 2 ML VIAL (2 MG) ONE (06:54)
[2019-03-30] MEDS ORDERED: Propofol* 10 MG/ML 20 ML BTL ONE (06:55)
[2019-03-30] MEDS ORDERED: Lidocaine 1% INJ* 10 MG/ML 30 ML SDV ONE (07:28)
[2019-03-30] MEDS ORDERED: Lidocaine 1% w EPI 1:200,000* SDV 30 ML VIAL ONE (07:38)
--- NOTE | 2019-03-30 08:23 | OP ---
Operative Report - Blank - Operative Report Date of Operation: 03/30/19 Note: Pre-OP Diagnoses: lung Ca Post-op Diagnosis: same Procedure: Insertion of powerport, needle in Surgeon: Alina Asst: none Anethesia: local, MAC EBL: minimal IVF: minimal Specimen: none Drains: none 8Fr single lumen power port via L SCV
[2019-03-30] MEDS ORDERED: Ondansetron INJ* 2 MG/ML VIAL IV PRN (08:44)
[2019-03-30] MEDS ORDERED: Naloxone* 0.4 MG/ML 1 ML VIAL IV PRN (08:44)
[2019-03-30] MEDS ORDERED: Ondansetron INJ* 2 MG/ML VIAL ONE (08:45)
[2019-03-30 09:17] VITALS: BP 129/89
--- NOTE | 2019-03-30 09:52 | OP ---
CC: Dr. Kerrie Smith; Madison Nagel MD; [facility] * DATE OF OPERATION: 03/30/19 - [facility] DATE OF : 62 SURGEON: Alvarez Fuller MD FINAL INSPECTOR MOVEMENT ASSEMBLY: None. ANESTHESIA: Local MAC. PRE-OP DIAGNOSIS: Lung cancer. POST-OP DIAGNOSIS: Lung cancer. OPERATIVE PROCEDURE: Insertion of PowerPort. INSTRUMENT: PowerPort 8-St Helenian placed through a left subclavian vein. COMPLICATIONS: None. BLOOD LOSS: Minimal. FLUIDS: Crystalloid fluid given. DESCRIPTION OF PROCEDURE: The patient was identified in the preoperative area. She was marked, taken to the OR, placed on operating table in supine position. General sedation was given. Preoperative antibiotics were given. Sequential devices were placed on bilateral lower extremities. The patient's left upper chest was prepped and draped in standard surgical fashion. A time- out was performed. The patient was in Trendelenburg and the left subclavian vein was accessed, wire inserted and under fluoroscopy shown to be in proper position. An incision inferior to this was made and a pocket for the port was made. The wire was then brought in through this incision and the vein was dilated under fluoroscopy. The split-away catheter inserted under fluoroscopy and the 8- St Helenian tubing placed. The split-away catheter removed. The tubing was cut to size assuring that the distal portion of the catheter was in the superior vena cava. This was then placed on to the pre-flushed PowerPort, which was placed in the pocket, and sutured with 0- Prolene sutures at the median and lateral aspects. The wound was closed in the standard fashion. Steri-Strips applied. We did access the port and injected heparinized saline and left needle later for chemotherapy today. [id number]/[facility] #: [id number] [facility]
== END 2019-03-30 09:58 | disposition home or self-care (01) ==
LOC: OR 05:36
PROVIDERS: ATTEND Surgery
DX: C34.91 Malignant neoplasm of unspecified part of right bronchus or lung (principal); Z87.891 Personal history of nicotine dependence; C79.51 Secondary malignant neoplasm of bone; C50.911 Malignant neoplasm of unspecified site of right female breast; Z17.0 Estrogen receptor positive status [ER+]; J44.9 Chronic obstructive pulmonary disease, unspecified; F32.9 Major depressive disorder, single episode, unspecified
CPT/HCPCS: 76000; A9270-GY; C1788; J0690; J1642; J2001; J2250; J2405; J2704

== ENCOUNTER 2019-04-27 10:21 | Inpatient (IN) | payer OTHER ==
[2019-04-27] MEDS ORDERED: Lorazepam PYXIS KEY PRN (12:44)
[2019-04-27] MEDS ORDERED: LORazepam INJ* 2 MG/ML 1 ML VIAL IV PUSH PRN (12:44)
[2019-04-27] MEDS ORDERED: Furosemide TAB* 20 MG PO PRN (12:49)
[2019-04-27] MEDS ORDERED: Enoxaparin(*) 40 MG/0.4 ML SYR SUBCUT SCH (13:00)
--- OUTSIDE RECORDS SUMMARY | 2019-04-27 13:29 | XMS REPORT | Continuity of Care Document ---
:1960 External Reference #:[id number] Author Name Kerrie Smith DO (transmitted by agent of provider Melonie Foley) Address [address] [facility] [place] [address] Care Team Providers Name Role Phone [facility] [place] [facility] - [facility] Care Team Information Acidity Tester Diagnostic Ovi Pereira MD - Neurology Care Team Information Acidity Tester [phone] Kerrie Smith DO - Hospitalist Care Team Information Acidity Tester Problems Active Problems Provider Date Mild recurrent major depression Chester Martinez M.D. Onset: 07/03/2016 Insomnia Chester Martinez M.D. Onset: 07/03/2016 Cramp and spasm Chester Martinez M.D. Onset: 07/03/2016 High enzyme level in serum Chester Martinez M.D. Onset: 09/14/2016 Abnormal glucose level Chester Martinez M.D. Onset: 09/14/2016 Obstructive sleep apnea syndrome Chester Martinez M.D. Onset: 09/14/2016 Difficulty breathing Tabitha Calabrese MD Onset: 10/22/2016 Cystic disease of kidney Chester Martinez M.D. Onset: 11/26/2016 Neuralgia Chester Martinez M.D. Onset: 01/08/2017 Social History Type Date Description Comments Sex Unknown Tobacco Use Start: Unknown End: Former Cigarette Smoker Unknown ETOH Use Rarely consumes alcohol Recreational Drug Use Denies Drug Use Tobacco Use Start: Unknown End: Patient is a former smoker Unknown Smoking Status Reviewed: 03/20/19 Patient is a former smoker Exercise Type/Frequency Does not exercise Allergies, Adverse Reactions, Alerts Active Allergies Reaction Severity Comments Date Bee Sting Anaphylaxis Severe 07/03/2016 Aspirin nausea, eye swelling Moderate 07/03/2016 Medications Active Medications SIG Qnty Indications Ordering Date Provider One-A-Day Womens 1 tablets with daily Unknown Formula Tablets Aleve as needed Unknown 220mg Tablets Citalopram 1 by mouth every day Unknown Hydrobromide 40mg Tablets Furosemide 1 by mouth every day Unknown 20mg Tablets Ondansetron dissolve one tablet Unknown 4mg Tablets orally every 8 hours Dispers as needed for nausea. Myrbetriq 1 by mouth every day Unknown 50mg Tablets ER 24HR Colace 1 tab every 12 hours Unknown 100mg Capsules as needed for constipation History Medications Colace 1 tab every 12 hours 90caps Alvarez Fuller, 03/03/2019 - 100mg as needed for MD, GEE Unknown Capsules constipation Oxycodone HCL take one twice a day 60tabs G89.4 Kerrie Smith, 2018 - as needed for pain DO Unknown 10mg Tablets Immunizations Description No Information Available Vital Signs Date Vital Result Comment 03/20/2019 10:51am Height 64 inches 5'4" Weight 203.00 lb Heart Rate 105 /min BP Systolic Sitting 113 mmHg BP Diastolic Sitting 81 mmHg Body Temperature 98.4 F Pain Level 10 back/neck O2 % BldC Oximetry 96 % BMI (Body Mass Index) 34.8 kg/m2 03/07/2019 9:51am Height 64 inches 5'4" Weight 197.00 lb Heart Rate 84 /min BP Systolic Sitting 128 mmHg BP Diastolic Sitting 86 mmHg Respiratory Rate 16 /min Body Temperature 98.2 F BMI (Body Mass Index) 33.8 kg/m2 Results Test Acquired Date Facility Test Result H/L Range Note Laboratory test 03/20/2019 [facility] Cytology <pending> finding [address] [place] [address] [phone] CBC Auto Diff 03/17/2019 [facility] White Blood 4.4 Normal 3.5 -10.[address] Count 10^3/[place] [address] [phone] Red Blood Count 3.79 10^6/uL Normal 3.70-4.87 Hemoglobin 11.9 g/dL Low 12.0-16.0 Hematocrit 36 % Normal 35-47 Mean Corpuscular Volume 94 fL Normal 80-97 Mean Corpuscular Hemoglobin 32 pg High 27-31 Mean Corpuscular HGB Conc 34 g/dL Normal 31-36 Red Cell Distribution Width 18 % High 10-15 Platelet Count 318 10^3/uL Normal 150-450 Mean Platelet Volume 6.4 fL Low 7.4-10.4 Abs Neutrophils 2.7 10^3/uL Normal 1.5-7.7 Abs Lymphocytes 1.2 10^3/uL Normal 1.0-4.8 Abs Monocytes 0.3 10^3/uL Normal 0-0.8 Abs Eosinophils 0.1 10^3/uL Normal 0-0.6 Abs Basophils 0.1 10^3/uL Normal 0-0.2 Abs Nucleated RBC 0.0 10^3/uL Granulocyte % 61.2 % Lymphocyte % 27.3 % Monocyte % 7.5 % Eosinophil % 2.2 % Basophil % 1.8 % Nucleated Red Blood Cells % 0.2 Comp Metabolic 03/17/2019 [facility] Sodium 136 mmol/L Normal 135-145 Panel [address] [place] [address] [phone] Potassium 4.0 mmol/L Normal 3.5-5.0 Chloride 102 mmol/L Normal 101-111 Co2 Carbon Dioxide 27 mmol/L Normal 22-32 Anion Gap 7 mmol/L Normal 2-11 Glucose 115 mg/dL High 70-100 Blood Urea Nitrogen 15 mg/dL Normal 6-24 Creatinine 0.76 mg/dL Normal 0.51-0.95 BUN/Creatinine Ratio 19.7 Normal 8-20 Calcium 10.0 mg/dL Normal 8.6-10.3 Total Protein 6.8 g/dL Normal 6.4-8.9 Albumin 4.1 g/dL Normal 3.2-5.2 Globulin 2.7 g/dL Normal 2-4 Albumin/Globulin Ratio 1.5 Normal 1-3 Total Bilirubin 0.30 mg/dL Normal 0.2-1.0 Alkaline Phosphatase 67 U/L Normal 34-104 Alt 12 U/L Normal 7-52 Ast 15 U/L Normal 13-39 Egfr Non- 78.4 >60 Egfr 94.9 >60 1 CBC Auto 03/09/2019 [facility] White Blood 5.1 10^3/uL Normal 3.5-10.[address] [place] [address] [phone] Red Blood Count 3.72 10^6/uL Normal 3.70-4.87 Hemoglobin 12.0 g/dL Normal 12.0-16.0 Hematocrit 35 % Normal 35-47 Mean Corpuscular Volume 94 fL Normal 80-97 Mean Corpuscular Hemoglobin 32 pg High 27-31 Mean Corpuscular HGB Conc 34 g/dL Normal 31-36 Red Cell Distribution Width 18 % High 10-15 Platelet Count 366 10^3/uL Normal 150-450 Mean Platelet Volume 6.8 fL Low 7.4-10.4 Abs Neutrophils 3.4 10^3/uL Normal 1.5-7.7 Abs Lymphocytes 1.4 10^3/uL Normal 1.0-4.8 Abs Monocytes 0.2 10^3/uL Normal 0-0.8 Abs Eosinophils 0.1 10^3/uL Normal 0-0.6 Abs Basophils 0.1 10^3/uL Normal 0-0.2 Abs Nucleated RBC 0.0 10^3/uL Granulocyte % 66.3 % Lymphocyte % 26.7 % Monocyte % 4.2 % Eosinophil % 1.8 % Basophil % 1.0 % Nucleated Red Blood Cells % 0.1 Comp Metabolic 03/09/2019 [facility] Sodium 136 mmol/L Normal 135-[address] [place] [address] [phone] Potassium 4.1 mmol/L Normal 3.5-5.0 Chloride 104 mmol/L Normal 101-111 Co2 Carbon Dioxide 25 mmol/L Normal 22-32 Anion Gap 7 mmol/L Normal 2-11 Glucose 168 mg/dL High 70-100 Blood Urea Nitrogen 11 mg/dL Normal 6-24 Creatinine 0.72 mg/dL Normal 0.51-0.95 BUN/Creatinine Ratio 15.3 Normal 8-20 Calcium 9.8 mg/dL Normal 8.6-10.3 Total Protein 6.3 g/dL Low 6.4-8.9 Albumin 4.1 g/dL Normal 3.2-5.2 Globulin 2.2 g/dL Normal 2-4 Albumin/Globulin Ratio 1.9 Normal 1-3 Total Bilirubin 0.30 mg/dL Normal 0.2-1.0 Alkaline Phosphatase 63 U/L Normal 34-104 Alt 15 U/L Normal 7-52 Ast 18 U/L Normal 13-39 Egfr Non- 83.5 >60 Egfr 101.0 >60 2 CBC Auto 03/02/2019 [facility] White Blood 5.0 10^3/uL Normal 3.5-10.[address] [place] [address] [phone] Red Blood Count 3.86 10^6/uL Normal 3.70-4.87 Hemoglobin 12.2 g/dL Normal 12.0-16.0 Hematocrit 36 % Normal 35-47 Mean Corpuscular Volume 94 fL Normal 80-97 Mean Corpuscular Hemoglobin 32 pg High 27-31 Mean Corpuscular HGB Conc 34 g/dL Normal 31-36 Red Cell Distribution Width 18 % High 10-15 Platelet Count 345 10^3/uL Normal 150-450 Mean Platelet Volume 6.4 fL Low 7.4-10.4 Abs Neutrophils 3.4 10^3/uL Normal 1.5-7.7 Abs Lymphocytes 1.2 10^3/uL Normal 1.0-4.8 Abs Monocytes 0.3 10^3/uL Normal 0-0.8 Abs Eosinophils 0.1 10^3/uL Normal 0-0.6 Abs Basophils 0.1 10^3/uL Normal 0-0.2 Abs Nucleated RBC 0.0 10^3/uL Granulocyte % 67.3 % Lymphocyte % 23.7 % Monocyte % 6.9 % Eosinophil % 1.0 % Basophil % 1.1 % Nucleated Red Blood Cells % 0.0 Comp Metabolic 03/02/2019 [facility] Sodium 136 mmol/L Normal 135-[address] [place] [address] [phone] Potassium 4.0 mmol/L Normal 3.5-5.0 Chloride 102 mmol/L Normal 101-111 Co2 Carbon Dioxide 27 mmol/L Normal 22-32 Anion Gap 7 mmol/L Normal 2-11 Glucose 123 mg/dL High 70-100 Blood Urea Nitrogen 18 mg/dL Normal 6-24 Creatinine 0.69 mg/dL Normal 0.51-0.95 BUN/Creatinine Ratio 26.1 High 8-20 Calcium 10.0 mg/dL Normal 8.6-10.3 Total Protein 7.0 g/dL Normal 6.4-8.9 Albumin 4.2 g/dL Normal 3.2-5.2 Globulin 2.8 g/dL Normal 2-4 Albumin/Globulin Ratio 1.5 Normal 1-3 Alkaline Phosphatase 60 U/L Normal 34-104 Alt 15 U/L Normal 7-52 Ast 18 U/L Normal 13-39 Egfr Non- 87.7 >60 Egfr 106.1 >60 3 Total Bilirubin 0.40 mg/dL Normal 0.2-1.0 Laboratory test 03/02/2019 [facility] CA 15-3 1888 U/mL Abnormal <30 [address] [place] [address] [phone] Breast Carcinoma Ag(Ca27.29) 1805 U/mL High <=38.0 5 1 Because ethnic data is not always readily available, this report includes an eGFR for both -Americans and non- Americans. The National Kidney Disease Education Program (NKDEP) does not endorse the use of the MDRD equation for patients that are not between the ages of 18 and 70, are , have extremes of body size, muscle mass, or nutritional status, or are non- or non-. According to the National Kidney Foundation, irrespective of diagnosis, the stage of the disease is based on the level of kidney function: Stage Description GFR(mL/min/1.73 m(2)) 1 Kidney damage with normal or decreased GFR 90 2 Kidney damage with mild decrease in GFR 60-89 3 Moderate decrease in GFR 30-59 4 Severe decrease in GFR 15-29 5 Kidney failure <15 (or dialysis) 2 Because ethnic data is not always readily available, this report includes an eGFR for both -Americans and non- Americans. The National Kidney Disease Education Program (NKDEP) does not endorse the use of the MDRD equation for patients that are not between the ages of 18 and 70, are , have extremes of body size, muscle mass, or nutritional status, or are non- or non-. According to the National Kidney Foundation, irrespective of diagnosis, the stage of the disease is based on the level of kidney function: Stage Description GFR(mL/min/1.73 m(2)) 1 Kidney damage with normal or decreased GFR 90 2 Kidney damage with mild decrease in GFR 60-89 3 Moderate decrease in GFR 30-59 4 Severe decrease in GFR 15-29 5 Kidney failure <15 (or dialysis) 3 Because ethnic data is not always readily available, this report includes an eGFR for both -Americans and non- Americans. The National Kidney Disease Education Program (NKDEP) does not endorse the use of the MDRD equation for patients that are not between the ages of 18 and 70, are , have extremes of body size, muscle mass, or nutritional status, or are non- or non-. According to the National Kidney Foundation, irrespective of diagnosis, the stage of the disease is based on the level of kidney function: Stage Description GFR(mL/min/1.73 m(2)) 1 Kidney damage with normal or decreased GFR 90 2 Kidney damage with mild decrease in GFR 60-89 3 Moderate decrease in GFR 30-59 4 Severe decrease in GFR 15-29 5 Kidney failure <15 (or dialysis) 4 ADDITIONAL INFORMATION The testing method is an electrochemiluminescence assay manufactured by [employer] and performed on the Modular or Rachele system. Values obtained with different assay methods or kits may be different and cannot be used interchangeably. Test results cannot be interpreted as absolute evidence for the presence or absence of malignant disease. Test Performed by: [facility] [address] [place], [place] [id number] Banquet Manager: Corey Turcios M.D. Ph.D.; CLIA# [id number] 5 ADDITIONAL INFORMATION The testing method is a chemiluminometric immunoassay manufactured by [employer] and performed on the [employer]'s [employer]. Values obtained with different assay methods or kits may be different and cannot be used interchangeably. Test results cannot be interpreted as absolute evidence for the presence or absence of malignant disease. Test Performed by: [place] [id number] Banquet Manager: Corey Turcios M.D. 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 Assessments Date Code Description Provider 03/20/2019 Z85.3 Personal history of malignant neoplasm of Kerrie Smith DO breast 03/20/2019 G89.4 Chronic pain syndrome Kerrie Smith, DO 03/20/2019 Z12.4 Encounter for screening for malignant Kerrie Smith DO neoplasm of cervix 03/07/2019 C34.91 Malignant neoplasm of unspecified part of Alvarez Fuller MD, FACS right bronchus or lung 12/23/2018 G89.4 Chronic pain syndrome Kerrie Smith, DO 12/23/2018 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
--- OUTSIDE RECORDS SUMMARY | 2019-04-27 13:29 | XMS REPORT | Continuity of Care Document ---
:1960 External Reference #:[id number] Author Name Alvarez Fuller MD, FACS (transmitted by agent of provider Jessica Chao) Address [address] [facility] [address] [place] [address] Care Team Providers Name Role Phone [facility] [place] [facility] - [place] Care Team Information Infrastructure Engineer Diagnostic Ovi Pereira MD - Neurology Care Team Information Infrastructure Engineer Kerrie Smith DO - Hospitalist Care Team Information Infrastructure Engineer [phone] Problems Active Problems Provider Date Mild recurrent [...] a former smoker Unknown Smoking Status Reviewed: 03/07/19 Patient is a former smoker Exercise Type/Frequency [...] Available Vital Signs Date Vital Result Comment 03/07/2019 9:51am Height 64 inches 5'4" Weight 197.00 lb Heart Rate 84 /min BP Systolic Sitting 128 mmHg BP Diastolic Sitting 86 mmHg Respiratory Rate 16 /min Body Temperature 98.2 F BMI (Body Mass Index) 33.8 kg/m2 12/23/2018 1:44pm Height 64 inches 5'4" Weight 200.00 lb Heart Rate 85 /min BP Systolic 120 mmHg BP Diastolic 84 mmHg Body Temperature 96.9 F O2 % BldC Oximetry 98 % BMI (Body Mass Index) 34.3 kg/m2 Results Test Date Facility Test Result H/L Range Note CBC Auto 03/02/2019 [facility] White Blood 5.0 10^3/uL Normal 3.5-10.[address] [place] [address] [phone] Red Blood Count 3.86 10^6/uL Normal 3.70-4.87 [...] Blood Cells % 0.0 Comp Metabolic 03/02/2019 [facility] Sodium 136 mmol/L Normal 135-[address] [place] [address] [phone] Potassium 4.0 mmol/L Normal 3.5-5.0 Chloride 102 [...] Egfr Non- 87.7 >60 Egfr 106.1 >60 1 Total Bilirubin 0.40 mg/dL Normal 0.2-1.0 1 Because ethnic data is not always [...] 15-29 5 Kidney failure <15 (or dialysis) Procedures Date Code Description Status 11/08/2015 [id number] Mammogram Completed 10/09/2015 [id number] Colonoscopy Completed Medical Devices Description No Information Available Encounters Type Date Location Provider Dx Diagnosis Office Visit 12/23/2018 [facility] Internal Kerrie Smith G89.4 Chronic pain 2:20p Medicine - Suite DO syndrome R 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 Assessments Date Code Description Provider 03/07/2019 C34.91 Malignant neoplasm of unspecified part of Alvarez Fuller MD, FACS right bronchus or lung 12/23/2018 G89.4 Chronic pain syndrome Kerrie Smith DO 12/23/2018 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
[2019-04-27] MEDS: NS 0.9% 1000 ML** 1,000 ML IV SCH (14:57)
[2019-04-27] MEDS: Morphine 10 MG/ML VIAL (1 ml) IV PRN (15:02)
[2019-04-27] MEDS ORDERED: Gadoteridol* (CONTRAST) 279.3 MG/ML 10 ML IV ONE (16:16)
[2019-04-27] MEDS ORDERED: Dexamethasone IV* 6 MG in NS 0.9% 50 ML* 50 ML IVPB SCH (18:00)
[2019-04-27 18:01] LABS: INR 0.97 (0.82-1.09)
[2019-04-27] MEDS: Dexamethasone IV* 4 MG/ML 1 ML (4 MG) IV SLOW PU SCH (18:41)
[2019-04-27] MEDS: Docusate CAP* 100 MG PO SCH (20:49)
[2019-04-28] MEDS: Dexamethasone IV* 4 MG/ML 1 ML (4 MG) IV SLOW PU SCH ×3 (02:21→18:19)
[2019-04-28] MEDS: Ondansetron INJ* 2 MG/ML VIAL IV PRN ×2 (08:40→19:37)
--- NOTE | 2019-04-28 09:18 | PN ---
Progress Note - Progress Note Date of Service: 04/28/19 SOAP: Subjective: []Still has a CARVER, though no significant complaint per nursing. Emesis this AM upon sitting up from sleep. Though she might have pulled her stomach with wretching. No other complaints. Medications: Citalopram Hydrobromide (Celexa Tab*) 40 mg PO DAILY [facility] Dexamethasone Sodium Phosphate (Decadron Iv*) 6 mg IV SLOW PU Q8H LIO Last Admin: 04/28/19 02:21 Dose: 6 mg Docusate Sodium (Colace Cap*) 200 mg PO BID LIO Last Admin: 04/27/19 20:49 Dose: 200 mg Furosemide (Lasix Tab*) 20 mg PO QAM PRN PRN Reason: PER PROTOCOL Heparin Sodium (Porcine) (Heparin Flush Port (Ivad)) 5 ml FLUSH DAILY [facility]; Protocol Sodium Chloride (Ns 0.9% 1000 Ml) 1,000 mls @ 50 mls/hr IV .PER RATE LIO Last Admin: 04/27/19 14:57 Dose: 50 mls/hr Lorazepam (Ativan Inj*) 0.5 mg IV PUSH Q4H PRN PRN Reason: nausea/emesis/anxiety Last Admin: 04/27/19 20:50 Dose: 0.5 mg Mirabegron (Myrbetriq (Nf)) 50 mg PO DAILY [facility] Miscellaneous (Ativan Pyxis Tim) 1 ea N/A .ATIVAN IV TIM PRN PRN Reason: PYXIS TIM Morphine Sulfate (Morphine 10 Mg/Ml Vial (1 Ml)) 5 mg IV Q4H PRN PRN Reason: PAIN - SEVERE Last Admin: 04/27/19 15:02 Dose: 5 mg Ondansetron HCl (Zofran Inj*) 4 mg IV Q4H PRN PRN Reason: NAUSEA Last Admin: 04/28/19 08:40 Dose: 4 mg Oxycodone HCl (Roxycodone Tab*) 5 mg PO Q4H PRN PRN Reason: PAIN - SEVERE Prochlorperazine Edisylate (Compazine Inj*) 10 mg IV Q6H PRN PRN Reason: NAUSEA/VOMITING Objective: [] Vital Signs Temp Pulse Resp BP Pulse Ox 98.0 F 97 16 142/97 100 04/28/19 07:15 04/28/19 07:15 04/28/19 07:15 04/28/19 07:15 04/28/19 07:15 A&Ox3, EOMI, PERRLA, CN II-XII intact, strength = bilat., neg. rhomberg HRR, S1S2 LS clear +BS, abd. soft with mild tenderness to RLQ No edema noted Laboratory Results - last 24 hr 04/27/19 15:00 INR (Anticoag Therapy) 0.97 Assessment: []58 yo female with metastatic HER2- ER/IN+ breast cancer with long standing osteoblastic disease treated with Paclitaxel for almost 2 years with good systemic control of disease (most recent imaging in Feb.). 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 We will proceed with LP. Fortunately, her symptoms seem slightly improved with supportive measures. Plan: []1. LP today, protein, glucose, and cell count with cytology - hold Lovenox until after - cont. current support meds Dispo: possibly home in AM if stable
[2019-04-28] MEDS: Citalopram TAB* 40 MG PO SCH (10:14)
[2019-04-28] MEDS: Morphine 10 MG/ML VIAL (1 ml) IV PRN ×2 (10:14→22:09)
[2019-04-28] MEDS: MIRABEGRON 50 MG PO SCH (10:15)
[2019-04-28] MEDS: Docusate CAP* 100 MG PO SCH ×2 (10:15→22:02)
[2019-04-28] MEDS: NS 0.9% 1000 ML** 1,000 ML IV SCH (11:34)
[2019-04-28] MEDS: PROCHLORPERAZINE INJ 5 MG/ML 2 ML VIAL IV PRN ×2 (11:34→22:10)
[2019-04-28] MEDS: oxyCODONE TAB* 5 MG TAB PO PRN (19:35)
--- NOTE | 2019-04-28 20:12 | PM ---
[facility] NOTE: DATE OF VISIT: 04/28/19 - Inpatient, room 415-02. HISTORY: The patient is a 58-year-old female, who is an inpatient in the hospital, who has metastatic breast cancer. As part of the workup of her admission for headache and nausea, an MRI was obtained which showed meningeal enhancement, so a lumbar puncture was requested for the patient to rule out leptomeningeal carcinomatosis. The patient has had her Lovenox held since yesterday afternoon. Her laboratory analysis was checked, she has an INR of 0.97 and platelet count is 400,000. I had a chance to discuss the procedure with the patient in detail, the risks, the benefits and alternatives of therapy. I explained the risk of a postdural puncture headache and nerve injury , bleeding, infection were discussed as well and after going over the risks, benefits, and alternatives, informed consent was obtained. ASSESSMENT AND PLAN: The patient with metastatic breast cancer, an LP was requested to rule out leptomeningeal carcinomatosis. We will plan on an LP today. Informed consent was obtained. PROCEDURE NOTE: In the sitting position, her low back was prepped and draped in the usual sterile fashion. 3 cc of 1% lidocaine was used for local anesthesia at the L3-4 interspace. A 22-gauge spinal needle was directed to the L3-4 interspace and the subarachnoid space was accessed without paresthesia or blood noted and there was free flow of clear cerebrospinal fluid. I proceeded to collect 4 vials of cerebrospinal fluid for laboratory analysis. The needle was withdrawn. The patient tolerated the procedure well and she will return to her inpatient room, room 415. I will inform Lizabeth Waters that the procedure was completed this morning. [id number]/[facility] #: [id number] [facility]
[2019-04-29] MEDS: Dexamethasone IV* 4 MG/ML 1 ML (4 MG) IV SLOW PU SCH ×3 (02:31→17:46)
[2019-04-29] MEDS: Ondansetron INJ* 2 MG/ML VIAL IV PRN ×2 (02:37→22:49)
[2019-04-29] MEDS: oxyCODONE TAB* 5 MG TAB PO PRN ×3 (02:37→17:46)
[2019-04-29] MEDS: NS 0.9% 1000 ML** 1,000 ML IV SCH (08:38)
[2019-04-29] MEDS: Citalopram TAB* 40 MG PO SCH (08:40)
[2019-04-29] MEDS: Morphine 10 MG/ML VIAL (1 ml) IV PRN ×2 (08:40→13:47)
[2019-04-29] MEDS: Docusate CAP* 100 MG PO SCH ×2 (08:40→19:25)
[2019-04-29] MEDS: PROCHLORPERAZINE INJ 5 MG/ML 2 ML VIAL IV PRN (08:40)
[2019-04-29] MEDS: MIRABEGRON 50 MG PO SCH (08:44)
[2019-04-29 10:09] LABS: CSF Glucose 27 mg/dL (40-70)
--- NOTE | 2019-04-29 10:19 | PN ---
Progress Note - Progress Note Date of Service: 04/29/19 SOAP: Subjective: [Feels a little better today. She was able to sit up for breakfast. She did feel as if she may fall at one point, but no vomiting. CARVER is manageable.] Objective: [ Vital Signs: Temp Pulse Resp BP Pulse Ox 98.1 F 80 18 125/73 97 04/29/19 07:15 04/29/19 07:15 04/29/19 08:40 04/29/19 07:15 04/29/19 07:15 Citalopram Hydrobromide (Celexa Tab*) 40 mg PO DAILY [facility] Last Admin: 04/29/19 08:40 Dose: 40 mg Dexamethasone Sodium Phosphate (Decadron Iv*) 6 mg IV SLOW PU Q8H LIO Last Admin: 04/29/19 08:41 Dose: 6 mg Docusate Sodium (Colace Cap*) 200 mg PO BID LIO Last Admin: 04/29/19 08:40 Dose: 200 mg Furosemide (Lasix Tab*) 20 mg PO QAM PRN PRN Reason: PER PROTOCOL Heparin Sodium (Porcine) (Heparin Flush Port (Ivad)) 5 ml FLUSH DAILY [facility]; Protocol Last Admin: 04/29/19 08:44 Dose: Not Given Sodium Chloride (Ns 0.9% 1000 Ml) 1,000 mls @ 50 mls/hr IV .PER RATE [facility] Last Admin: 04/29/19 08:38 Dose: 50 mls/hr Lorazepam (Ativan Inj*) 0.5 mg IV PUSH Q4H PRN PRN Reason: nausea/emesis/anxiety Last Admin: 04/27/19 20:50 Dose: 0.5 mg Mirabegron (Myrbetriq (Nf)) 50 mg PO DAILY [facility] Last Admin: 04/29/19 08:44 Dose: Not Given Miscellaneous (Ativan Pyxis Tim) 1 ea N/A .ATIVAN IV TIM PRN PRN Reason: PYXIS TIM Morphine Sulfate (Morphine 10 Mg/Ml Vial (1 Ml)) 5 mg IV Q4H PRN PRN Reason: PAIN - SEVERE Last Admin: 04/29/19 08:40 Dose: 5 mg Ondansetron HCl (Zofran Inj*) 4 mg IV Q4H PRN PRN Reason: NAUSEA Last Admin: 04/29/19 02:37 Dose: 4 mg Oxycodone HCl (Roxycodone Tab*) 5 mg PO Q4H PRN PRN Reason: PAIN - SEVERE Last Admin: 04/29/19 02:37 Dose: 5 mg Prochlorperazine Edisylate (Compazine Inj*) 10 mg IV Q6H PRN PRN Reason: NAUSEA/VOMITING Last Admin: 04/29/19 08:40 Dose: 10 mg Laboratory Results - last 24 hr 04/28/19 10:40 CSF Glucose 27 L* CSF Total Protein 184 H Exam: Gen: chronically ill appearing 58 yo female in NAD HEENT: MMM CV: RRR, no m/r/g Resp: CTA, no w/c/r Abd: soft and nonTTP Ext: no edema Neuro: nonfocal] [Assessment: []58 yo female with metastatic HER2- ER/NM+ breast cancer with long standing osteoblastic disease treated with Paclitaxel for almost 2 years with good systemic control of disease (most recent imaging in Feb.). She was admitted with an intractable CARVER and emesis with position change. 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 LP was completed yesterday revealing elevated protein. Cytology is pending at this time. Plan: 1. CARVER/emesis - high suspicion for leptomeningeal carcinomatosis - pathology pending - afebrile and appears nontoxic, low suspicion for infectious etiology but pending gram stain and culture - continue supportive measures and dexamethasone 2. Metastatic breast CA - discussed the implications of leptomeningeal disease with the patient - if cytology is positive she would like to continue to pursue treatment with IT MTX - offered Hospice and palliative consultation which she declined at this time - restage systemic disease with CT C/A/P to reassess systemic control given probably CHARGE MANAGER progression Dispo: possible dc home tomorrow with close oncology follow up - if she remains highly symptomatic then will wait for cytology results from CSF and give first 1st MTX inpatient
[2019-04-29] MEDS ORDERED: Iohexol 300* (CONTRAST) 10 ML SDV IV ONE (11:40)
[2019-04-30] MEDS: Dexamethasone IV* 4 MG/ML 1 ML (4 MG) IV SLOW PU SCH ×2 (02:11→11:31)
[2019-04-30] MEDS: oxyCODONE TAB* 5 MG TAB PO PRN ×2 (03:49→08:58)
[2019-04-30] MEDS: PROCHLORPERAZINE INJ 5 MG/ML 2 ML VIAL IV PRN (03:50)
[2019-04-30] MEDS: NS 0.9% 1000 ML** 1,000 ML IV SCH (05:25)
[2019-04-30 05:51] LABS: ABS Lymphocytes 0.9 10^3/ul (1.0-4.8); ABS Monocytes 0.5 10^3/ul (0-0.8); ABS Neutrophils 9.1 10^3/ul (1.5-7.7); Hematocrit 37 % (35-47); Hemoglobin 12.5 g/dL (12.0-16.0); Lymphocyte % 8.8 %; Mean Corpuscular HGB Conc 34 g/dL (31-36); Mean Corpuscular Hemoglobin 32 pg (27-31); Mean Corpuscular Volume 95 fL (80-97); Mean Platelet Volume 6.6 fL (7.4-10.4); Nucleated Red Blood Cells % 0.1; Platelet Count 332 10^3/uL (150-450); Red Blood Count 3.86 10^6 /uL (3.70-4.87); Red Cell Distribution Width 18 % (10-15); White Blood Count 10.6 10^3/uL (3.5-10.8)
[2019-04-30 06:16] LABS: Albumin 3.8 g/dL (3.2-5.2); Albumin/Globulin Ratio 1.5 (1-3); BUN/Creatinine Ratio 22.7 (8-20); Calcium 9.1 mg/dL (8.6-10.3); EGFR African American 111.7 (>60); EGFR Non-African American 92.3 (>60); Globulin 2.6 g/dL (2-4); Potassium 4.2 mmol/L (3.5-5.0); Total Bilirubin 0.3 mg/dL (0.2-1.0); Total Protein 6.4 g/dL (6.4-8.9)
[2019-04-30] MEDS: Citalopram TAB* 40 MG PO SCH (08:57)
[2019-04-30] MEDS: Docusate CAP* 100 MG PO SCH (08:57)
[2019-04-30] MEDS: MIRABEGRON 50 MG PO SCH (08:59)
[2019-04-30] MEDS ORDERED: Influenza VAC *QUAD* 2019-20* 0.5 ML SYRINGE IM ONE (09:00)
[2019-04-30 12:15] VITALS: BP 141/78
--- NOTE | 2019-04-30 12:27 | DS ---
Amended report to enter cosigning physician. CC: Dr. Kerrie Smith; Dr. Madison Nagel* DISCHARGE SUMMARY: DATE OF ADMISSION: 04/27/19 DATE OF DISCHARGE: 04/30/19 PRIMARY CARE PROVIDER: Dr. Kerrie Smith. PRIMARY ONCOLOGIST AND ATTENDING PHYSICIAN: Dr. Madison Nagel* (dictated by JONN Springer). DISCHARGING PROVIDER: JONN Springer PRIMARY DISCHARGE DIAGNOSES: 1. 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 2. Metastatic breast cancer. DISCHARGE MEDICATIONS: 1. Celexa 40 mg p.o. daily. 2. Lasix 20 mg p.o. daily. 3. Myrbetriq 50 mg p.o. daily. 4. Zofran 4 mg sublingual q.4 hours as needed for nausea or vomiting. 5. Docusate 200 mg p.o. twice daily. 6. Oxycodone 5 mg p.o. q.4 hours as needed for pain. 7. Dexamethasone 6 mg p.o. twice daily. 8. Compazine 10 mg p.o. q.6 hours as needed for nausea or vomiting. HOSPITAL IMAGIN. MRI brain, 04/27/19 with and without contrast demonstrates a concern for leptomeningeal carcinomatosis with new enhancement centered about the superior cerebellar fissures. Ventricles are mildly increased in caliber with osteoblastic metastasis of the calvarium skull base and upper cervical spine similar to prior imaging. 2. CT chest, abdomen and pelvis 04/29/19 shows a 1.7 cm left lower lobe pulmonary nodule, which appears stable when compared to prior CT. There are 2 mixed attenuation masses adjacent to the uterus, which appear stable when compared to prior CT. There is also diffuse bony sclerosis, which appears similar to prior imaging. HOSPITAL COURSE: This is a 58-year-old female with metastatic breast cancer, under treatment with Dr. Madison Nagel. She has been receiving weekly Taxol with stable disease for nearly 2 years. Last infusion was on 04/13/19. The patient presented to the clinic for routine followup with complaints of headache that was noted to be quite severe and vomiting with any movement of the head. This was quite concerning for MEDICAL ASSISTANT CARDIOLOGY malignancy and she was sent for an MRI of the brain which showed leptomeningeal enhancement concerning for leptomeningeal carcinomatosis. The patient was subsequently admitted to the hospital for symptom management and underwent a lumbar puncture on 04/28/19. She received oxycodone for her headache and antiemetics as well as IV dexamethasone. Her symptoms were moderately well controlled with this regimen and the patient desired discharge home prior to the cytology results being released from her lumbar puncture. Cell counts from her lumbar puncture are not available at the time of this dictation, but total protein is very high at 184 with a low glucose at 27. Gram stain was negative for organisms and no growth at 24 hours. DISPOSITION AND FOLLOWUP PLAN: The patient is being discharged to home in stable condition with a high suspicion for a leptomeningeal carcinomatosis. She will follow up with the Oncology Clinic on Wednesday to review cytology results from her lumbar puncture. Reviewed in detail the consequences of positive cytology results. Discussed palliatives options, but patient would like to continue to pursue treatment at this time. Briefly discussed use of IT methotrexate. Systemic staging scans including a CT of the chest, abdomen and pelvis are completed during this admission and shows stable disease. The bone scan can be completed as an outpatient to complete systemic staging. Plan to continue Taxol chemotherapy at this time. JONN SPRINGER [id number]/[facility] #: [id number] MTDD
== END 2019-04-30 12:00 | disposition home or self-care (01) | DRG 41 ==
LOC: MED 10:21 → OBSVTOIN 04-29 10:21
PROVIDERS: ADMIT Internal Medicine Hematology & Oncology; ATTEND Internal Medicine Hematology & Oncology
PROC: 009U3ZX Drainage of Spinal Canal, Percutaneous Approach, Diagnostic (ICD-10-PCS; principal; 2019-04-28)
DX: C79.32 Secondary malignant neoplasm of cerebral meninges (principal); C80.0 Disseminated malignant neoplasm, unspecified; C78.00 Secondary malignant neoplasm of unspecified lung; C79.51 Secondary malignant neoplasm of bone; J44.9 Chronic obstructive pulmonary disease, unspecified; C50.911 Malignant neoplasm of unspecified site of right female breast; Z17.0 Estrogen receptor positive status [ER+]; Z90.11 Acquired absence of right breast and nipple; Z87.891 Personal history of nicotine dependence; Z88.6 Allergy status to analgesic agent
CPT/HCPCS: 36415; 70553; 71260; 74177; 80053; 82945; 84157; 85025; 85610; 87070; 87205; 88112; 88305; 88342; 88360; 90686; 93005; 99219; 99233; 99239; A9270-GY; A9579; G0378; J0780; J1100; J1642; J1650; J2060; J2270; J2405; Q9967

== ENCOUNTER 2019-06-29 14:07 | Emergency (ER) | payer OTHER ==
[2019-06-29] MEDS ORDERED: NS 0.9% 1000 ML** 1,000 ML IV ONE ×3 (14:10→18:55)
--- NOTE | 2019-06-29 14:19 | ED ---
Neurological HPI - HPI Summary HPI Summary: Patient is a 58 y/o F presenting to the ED via EMS for a chief complaint of neurological deficit that began one hour [employer]. Per EMS, patient's fiance noticed the patient had confusion and slurred speech that began at approximately 13:00 on 06/29/19. On vitals, patient does not have a fever. 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 She was admitted to [facility] for intractable headache, nausea, and vomiting, and discharged on 04/30/19. She had a head CT on 05/04/20. Patient is on oxycodone, Decadron, and morphine. HISTORY OF PRESENT ILLNESS IS LIMITED DUE TO LEVEL 5 CAVEAT - ALTERED MENTAL STATUS. - History of Current Complaint Stated Complaint: GARBLED SPEECH PER EMS Time Seen by Provider: 06/29/19 14:08 Hx Obtained From: EMS Hx From Patient Unobtainable Due To: Altered Mental Status Hx Last Menstrual Period: None since 11 years ago. Onset/Duration: Sudden Onset, Still Present Timing: Sudden Onset Onset Severity: Severe Current Severity: Severe Pain Scale Used: 0-10 Numeric Character: Impaired Speech, Confusion Associated Signs and Symptoms: Positive: Confusion, Impaired Speech. Negative: Fever TPA Considered: No - Risk > benefits - Additional Pertinent History Primary Care Physician: [id number] - Allergy/Home Medications Allergies/Adverse Reactions: Allergies Allergy/AdvReac Type Severity Reaction Status Date / Time aspirin Allergy Intermediate Facial Verified 03/30/19 06:18 Redness/Flushing bee venom protein (honey bee) Allergy Mild Hives Verified 03/30/19 06:18 Home Medications: Home Medications Citalopram TAB* [Celexa TAB*] 40 mg PO DAILY 10/07/17 [History Confirmed ] Mirabegron (NF) [Myrbetriq (NF)] 50 mg PO DAILY 04/27/19 [History Confirmed ] Abemaciclib [Verzenio] 150 mg PO BID 06/29/19 [History Confirmed 06/29/19] Docusate CAP* [Colace Cap*] 100 mg PO BID PRN 06/29/19 [History Confirmed ] Furosemide TAB* [Lasix TAB*] 20 mg PO DAILY 06/29/19 [History Confirmed 06/29/19 ] Morphine TAB Extended Rel(*) [Ms Contin(*)] 15 mg PO BID MDD 30 mg 06/29/19 [ History Confirmed 06/29/19] Naproxen Sodium [Aleve] 220 mg PO Q6HR PRN 06/29/19 [History Confirmed 06/29/19] Ondansetron TAB* [Zofran 4 MG Tab*] 4 mg PO Q8HR PRN 06/29/19 [History Confirmed 06/29/19] Oxycodone TAB(NF) [Oxycodone HCl 10 MG] 10 mg PO BID PRN MDD 20mg 06/29/19 [ History Confirmed 06/29/19] PMH/Surg Hx/FS Hx/Imm Hx Previously Healthy: No - LIMITED DUE TO LEVEL 5 CAVEAT - ALTERED MENTAL STATUS. Endocrine/Hematology History: Denies: Hx Diabetes, Hx Thyroid Disease Cardiovascular History: Denies: Hx Congestive Heart Failure, Hx Deep Vein Thrombosis, Hx Hypertension , Hx Myocardial Infarction, Hx Pacemaker/ICD Respiratory History: Reports: Other Respiratory Problems/Disorders - LUNG CANCER Denies: Hx Asthma, Hx Chronic Obstructive Pulmonary Disease (COPD), Hx Lung Cancer, Hx Pneumonia, Hx Pulmonary Embolism GI History: Denies: Hx Gall Bladder Disease, Hx Gastrointestinal Bleed, Hx Ulcer, Hx Urosepsis History: Denies: Hx Kidney Stones, Hx Renal Disease Musculoskeletal History: Reports: Other Musculoskeletal History - BONE CANCER DX 2 YEARS AGO Sensory History: Denies: Hx Contacts or Glasses, Hx Hearing Aid Opthamlomology History: Denies: Hx Contacts or Glasses Neurological History: Reports: Hx Headaches Denies: Hx Dementia, Hx Migraine, Hx Seizures, Hx Transient Ischemic Attacks (TIA) Psychiatric History: Reports: Hx Depression Denies: Hx Anxiety, Hx Panic Disorder, Hx Schizophrenia, Hx Bipolar Disorder - Cancer History Cancer Type, Location and Year: Right Breast Cancer 2003, age 43. LUNG CA. BONE METS Hx Chemotherapy: Yes Hx Radiation Therapy: Yes - Surgical History Surgical History: Yes Surgery Procedure, Year, and Place: tubal ligation. port placement. right mastectomy then implant placed Hx Anesthesia Reactions: No Infectious Disease History: No Infectious Disease History: Denies: Hx Hepatitis, Hx Human Immunodeficiency Virus (HIV), History Other Infectious Disease - Family History Known Family History: Positive: Diabetes Negative: Cardiac Disease, Hypertension - Social History Occupation: Disabled Lives: With Family Alcohol Use: None Hx Substance Use: Yes Substance Use Type: Reports: Marijuana, Prescribed Substance Use Comment - Amount & Last Used: daily Hx Tobacco Use: Yes Smoking Status (MU): Former Smoker Type: Cigarettes Have You Smoked in the Last Year: No Review of Systems Negative: Fever Neurological/Mental Status: Other - Positive slurred speech and confusion All Other Systems Reviewed And Are Negative: No - Comments Additional Review of Systems Comments: REVIEW OF SYSTEMS IS LIMITED DUE TO LEVEL 5 CAVEAT - ALTERED MENTAL STATUS. Physical Exam - Summary Physical Exam Summary: Constitutional: Well-developed, Limited exam to patient uncooperation. Skin: Warm, Dry HENT: Normocephalic; Atraumatic Eyes: Conjunctiva normal Neck: Musculoskeletal ROM normal neck. (-) JVD, (-) Stridor, (-) Nuchal rigidity Cardio: Rhythm regular, rate normal, Heart sounds normal; Intact distal pulses; Radial pulses are 2+ and symmetric. (-) Murmur Pulmonary/Chest wall: Effort normal. (-) Respiratory distress, (-) Wheezes, (-) Rales Abd: Soft, (-) tenderness, (-) Distension, (-) Guarding, (-) Rebound Musculoskeletal: (-) Edema. Left chest wall port, surgical changes of the right breast, scattered abrasions to the extremities Lymph: (-) Cervical adenopathy Neuro: Alert, Oriented to person, not place or time, moving all extremities. Psych: Deferred Triage Information Reviewed: Yes Vital Signs Reviewed: Yes - Julianne Coma Scale Best Eye Response: 4 - Spontaneous Best Motor Response: 5 - Purposeful Movement Best Verbal Response: 4 - Confused Coma Scale Total: 13 Procedures - Sedation Patient Received Moderate/Deep Sedation with Procedure: No Diagnostics - Laboratory Result Diagrams: 06/29/19 15:40 06/29/19 14:42 Lab Statement: Any lab studies that have been ordered have been reviewed, and results considered in the medical decision making process. - Radiology Chest X-ray Radiology Interpretation Completed By: Radiologist Summary of Radiographic Findings: Chest X-ray IMPRESSION: NO ACTIVE CARDIOPULMONARY DISEASE IS NOTED. Reviewed by Dr. Eng. Brain MRI Radiology Interpretation Completed By: Radiologist Summary of Radiographic Findings: Brain MRI IMPRESSION: 1. Leptomeningeal enhancement along the vermis is less conspicuous relative to comparison MR imaging; however, this exam is severely motion degraded. 2. The degree of ventriculomegaly is slightly increased (best appreciated on coronal sequences). 3. Diffuse osteoblastic metastatic disease. 4. No acute infarct. Reviewed by Dr. Eng. - CT Brain CT CT Interpretation Completed By: Radiologist Summary of CT Findings: Brain CT IMPRESSION: 1. NO ACUTE INTRACRANIAL PATHOLOGY. 2. OSSEOUS METASTATIC DISEASE. Reviewed by Dr. Eng. - EKG 14:42 Cardiac Rate: NL - 97 BPM EKG Rhythm: Sinus Rhythm ST Segment: Normal Ectopy: None Summary of EKG Findings: An EKG at 14:42 reveals normal sinus rhythm with 97 BPM , prolonged QTc at 535, nml axis, nml intervals. No STEMI. No acute changes. ED physician has reviewed and interpreted this EKG. NIH Scale - NIH Scale Level of Consciousness: Alert/Keenly Responsive Ask Patient the Month and His/Her Age: One Correct/Not Aphasic Ask Pt to Open/Close Eyes and Oyster Preparer/Release Non-Paretic Hand: One Correctly Best Gaze (Only Horizontal Eye Movement): Normal Visual Field Testing: No Visual Loss Facial Paresis-Pt to Smile & Close Eyes or Grimace Symmetry: Normal/Symmetrical Motor Function - Right Arm: No Drift-Holds 10 Seconds Motor Function - Left Arm: No Drift-Holds 10 Seconds Motor Function - Right Leg: No Drift-Holds 10 Seconds Motor Function - Left Leg: No Drift-Holds 10 Seconds Limb Ataxia-Must be out of Proportion to Weakness Present: Absent Sensory (Use Pinprick to Test Arms/Legs/Trunk/Face): Normal Best Language (Describe Picture, Name Items): Some Loss Dysarthria (Read Several Words): Normal Extinction and Inattention: Inattention Total Score: 4 NIH Stroke Scale Comment: NIH Stroke Scale calculated at 14:45. Re-Evaluation - Re-Evaluation First Eval Re-Evaluation Time: 15:13 Change: Unchanged Comment: At 15:13, charge nurse states that the earliest patient can be taken for an MRI is 16:30. Second Eval Re-Evaluation Time: 15:22 Change: Unchanged Comment: At 15:22, I will give Ceftriaxone, Ampicillin, and Acyclovir to cover for an infection. Third Eval Re-Evaluation Time: 16:18 Change: Unchanged Comment: At 16:18, charge nurse reports that the patients will not be coming to see the patient until tomorrow morning. Fourth Eval Re-Evaluation Time: 18:44 Change: Worse Comment: At 18:44, patients nurse states patient is tachycardic and febrile. Given tylenol. LA repeated, trop resent Course/Dx - Course Course Of Treatment: 58 y/o F w hx BRCA w leptomeningeal metastasis, on chemotherapy presenting an episode of altered mental status. - Arrival to the emergency department, patient afebrile, neuro exam notable for profound confusion, otherwise nonfocal. Hansel Epperson called, CT of the brain shows no acute abnormalities. Dr. Pereira at bedside. concerning for seizure like activity versus infectious cause of meningitis. Patient is not a TPA candidate at this time given unclear cause of presentation, complex history, and risks of TPA. - Labs notable for ANC 0, WBC 0.5. Initial APTT elevated, repeat normal. LA normal. Trop 0.05 likely 2/2 demand ischemia. EKG w/o e/o acute ischemia. CXR w/o PNA. UA pending, BC sent. Patient reportedly for meningitis w vancomycin, ampicillin, ceftriaxone, acyclovir. Unable to perform LP 2/2 patient agitation and concern for ventriculomegaly on MRI. Spot EEG w temporal lobe spikes, given ativan and keppra which improved spikes. Oncology consulted , given filgrastim. Neurology recommending continouous EEG, likely neuro ICU. Unable to do so here so will transfer to [facility]. [facility] MICU accepts, neurology aware of patient. Before transfer, became febrile. Given tylneol, LA repeated. Got a total of 3L IVF. - Diagnoses Provider Diagnoses: Breast cancer, AMS (altered mental status), Neutropenia During the Visit The Following Alert/Code Occurred: Hansel Epperson - 14:08 Dr. ENG IS AT BEDSIDE TO ASSESS THE PATIENT. AT 14:10, DR. PEREIRA WAS MADE AWARE OF THE PATIENT AND HE IS ON HIS WAY. AT 14:10, HANSEL EPPERSON WAS CALLED IN THE ED. AT 14:11, PATIENT IS BEING TAKEN TO THE CT SUITE. AT 14:27, DR. MINOR REPORTS A PRELIMINARY FINDING OF NEGATIVE BRAIN CT. AT 14:34, DR. PEREIRA SPOKE TO THE PATENTS WHO SAID PATIENT APPEARS TO BE HAVING EPILEPTIC SEIZURES. HE RECOMMENDS PATIENT BE GIVEN 1 MG OF KEPPRA. AT 14:39, DR. PEREIRA RECOMMENDS AN MRI, BUT DOES NOT RECOMMEND TPA AT THIS TIME OR CTA. HE SAYS ACYCLOVIR SHOULD BE GIVEN AND ONCOLOGY CONSULTED. TPA NOT CONSIDERED BECAUSE RISKS OUTWEIGH THE BENEFITS FOR THIS PATIENT. AT 16:56, PATIENT WAS TAKEN FOR AN MRI. - Physician Notifications Discussed Care Of Patient With: Ovi Pereira - AT 14:10, DR. PEREIRA WAS MADE AWARE OF THE PATIENT AND HE IS ON HIS WAY. AT 14:34, DR. PEREIRA SPOKE TO THE PATENTS WHO SAID PATIENT APPEARS TO BE HAVING EPILEPTIC SEIZURES. HE RECOMMENDS PATIENT BE GIVEN 1 MG OF KEPPRA. AT 14:39, DR. PEREIRA RECOMMENDS AN MRI, BUT DOES NOT RECOMMEND TPA AT THIS TIME OR CTA. HE SAYS ACYCLOVIR SHOULD BE GIVEN AND ONCOLOGY CONSULTED. At 15:18, Dr. Rubin Kaplan states he will see the patient and would like a re-draw of several labs. At 17:54, Dr. Courtney called to state there is increasing ventricular size on the brain MRI. At 17:00 , Dr. Ovi Pereira and Dr. Rubin Kaplan both agree that patient should be transferred to another facility. Patient requires transfer to another facility for a higher level of care and continuous EEG monitoring. At 18:39, Dr. Jamila Erazo at [facility] recommends admission to the MICU and the patient be given a liter of fluids and have a repeat lactic acid. Dr. Valiente reviewed the patient's case and agrees to accept the patient as a transfer to [facility]. Time Discussed With Above Provider: 14:10 Instructed by Provider To: Transfer Reason For Transfer: Patient not appropriate for [facility]., Specialist unable to manage this patient., Other: - Continuous EEG monitoring - Critical Care Time Critical Care Time: 30-74 min - 60 minutes CCT Discharge ED - Sign-Out/Discharge Documenting (check all that apply): Patient Departure - Transfer - Discharge Plan Condition: Stable Disposition: TRANS HIGHER LVL OF CARE FAC Referrals: Kerrie Smith DO [Primary Care Provider] - - Billing Disposition and Condition Condition: STABLE Disposition: Trans Higher Lvl of Care Fac - Attestation Statements Document Initiated by Scribe: Yes Documenting Scribe: Melanie Hernandes Provider For Whom Scribe is Documenting (Include Credential): Syeda Eng MD Scribe Attestation: Melanie Aguirre scribed for Syeda Eng MD on 06/29/19 at 1919. Scribe Documentation Reviewed: Yes Provider Attestation: The documentation as recorded by the scribe, Melanie Hernandes accurately reflects the service I personally performed and the decisions made by me, Syeda Eng MD Status of Scribe Document: Viewed
[2019-06-29] MEDS ORDERED: levETIRAcetam 1000MG IVPREMIX* 1,000 MG/100 ML BAG IVPB ONE (14:38)
[2019-06-29] MEDS ORDERED: Acyclovir IV(*) 750 MG in NS 0.9% 250 ML* 250 ML IVPB ONE (14:44)
[2019-06-29 14:59] LABS: ABS Lymphocytes 0.4 10^3/ul (1.0-4.8); Eosinophil % 2.3 %; Hematocrit 33 % (35-47); Hemoglobin 11.6 g/dL (12.0-16.0); Lymphocyte % 79.5 %; Mean Corpuscular HGB Conc 35 g/dL (31-36); Mean Corpuscular Hemoglobin 33 pg (27-31); Mean Corpuscular Volume 93 fL (80-97); Mean Platelet Volume 6.5 fL (7.4-10.4); Platelet Count 208 10^3/uL (150-450); Red Blood Count 3.53 10^6 /uL (3.70-4.87); Red Cell Distribution Width 17 % (10-15); White Blood Count 0.5 10^3/uL (3.5-10.8)
[2019-06-29 15:10] LABS: ALT 37 U/L (7-52); AST 38 U/L (13-39); Albumin 3.3 g/dL (3.2-5.2); Albumin/Globulin Ratio 1.3 (1-3); Alkaline Phosphatase 61 U/L (34-104); Anion Gap 7 mmol/L (2-11); BUN/Creatinine Ratio 12.2 (8-20); Blood Urea Nitrogen 9 mg/dL (6-24); CO2 Carbon Dioxide 33 mmol/L (22-32); Calcium 8.7 mg/dL (8.6-10.3); Chloride 92 mmol/L (101-111); Cholesterol 193 mg/dL; EGFR African American 97.9 (>60); EGFR Non-African American 80.9 (>60); Globulin 2.5 g/dL (2-4); Glucose 97 mg/dL (70-100); HDL Cholesterol 49.2 mg/dL; LDL Cholesterol 99 mg/dL; Potassium 2.8 mmol/L (3.5-5.0); Sodium 132 mmol/L (135-145); Total Protein 5.8 g/dL (6.4-8.9); Triglycerides 226 mg/dL
[2019-06-29 15:11] LABS: INR 1.29 (0.82-1.09)
[2019-06-29 15:13] LABS: Troponin I 0.05 ng/mL (<0.03)
[2019-06-29 15:14] LABS: Activated Partial Thrombo Time 101.6 seconds (26.0-38.0)
[2019-06-29] MEDS ORDERED: Lorazepam PYXIS KEY PRN ×2 (15:15→16:38)
[2019-06-29] MEDS ORDERED: LORazepam INJ* 2 MG/ML 1 ML VIAL IV PUSH ONE ×2 (15:15→16:38)
[2019-06-29] MEDS ORDERED: Lorazepam PYXIS KEY ONE (15:17)
[2019-06-29] MEDS ORDERED: cefTRIAXone(*) 2 GM in NS 0.9% 100 ML* 100 ML IVPB ONE (15:19)
[2019-06-29] MEDS ORDERED: Ampicillin IV* 2 GM in NS 0.9% 100 ML* 100 ML IVPB ONE (15:19)
[2019-06-29 15:37] LABS: Magnesium 2.1 mg/dL (1.9-2.7)
--- OUTSIDE RECORDS SUMMARY | 2019-06-29 15:38 | XMS REPORT ---
:1960 Author Organization [facility] Care Team Providers Name Role Phone Unavailable Unavailable Unavailable Problems Condition Condition Condition Status Onset Resolution Last Treating Comments Name Details Category Date Date Treatment Clinician Date Malignant Malignant Diagnosis Active 2018-05 María neoplasm of neoplasm of 2-27 [place] unspecified unspecified RN site of site of right right female female breast breast Secondary Secondary Diagnosis Active 2018-05 María malignant malignant 2-27 [place] neoplasm of neoplasm of RN unspecified unspecified lung lung Secondary Secondary Diagnosis Active 2018-05 Mraía malignant malignant -27 [place] neoplasm of neoplasm of RN bone bone Chronic Chronic Diagnosis Active 2018-05 María obstructive obstructive 2-27 [place] pulmonary pulmonary RN disease, disease, unspecified unspecified Pain frequent Pain Mgmt Active 2018-05 Calista pain 2-27 (Nava) 09:00: Lindquist 00 [id number] Respiratory dyspnea Respirator Resolve 2018-052019-05-22 Calista present y d 2-27 09:25:00 (Nava) 09:00: Lindquist 00 [id number] Sensory impaired Sensory Resolve 2018-052019-05-26 Calista hearing d 2-27 10:25:00 (Nava) 09:00: Lindquist 00 [id number] Integument skin Integument Resolve 2018-052019-05-15 Calista integrity d 2-27 09:03:00 (Nava) risk 09:00: Lindquist 00 [id number] Elimination urinary Eliminatio Resolve 2018-052019-05-12 Calista incontinenc n d 2-27 11:00:00 (Nava) e 09:00: Lindquist 00 [id number] Neuro depressive Neuro/Emot Active 2018-05 Calista feelings ion 2-27 (Nava) present 09:00: Lindquist [id number] Neuro impaired Neuro/Emot Active 2018-05 Calista decision-ma ion 2-27 (Nava) jamie 09:00: Lindquist 00 [id number] Neuro confusion Neuro/Emot Active 2018-05 Calista present ion 2-27 (Nava) 09:00: Lindquist 00 [id number] Neuro memory Neuro/Emot Active 2018-05 Calista deficit ion 2-27 (Nava) needing 09:00: Lindquist supervision 00 [id number] Activity ADL Activity Resolve 2018-052019-05-26 Calista assistance d 2-27 10:25:00 (Nava) required 09:00: Lindquist [id number] Activity self-care Activity Resolve 2018-052019-05-26 Calista deficit d 2-27 10:25:00 (Nava) 09:00: Lindquist 00 [id number] Safety risk for Safety Active 2018-05 Calista hospitaliza 2-27 (Nava) tion 09:00: Lindquist 00 [id number] Safety can be left Safety Resolve 2018-052019-05-26 Calista alone for d 2-27 10:25:00 (Nava) only short 09:00: Lindquist periods 00 [id number] Safety fall risk Safety Active 2018-05 Calista factor 2-27 (Nava) present 09:00: Lindquist [id number] Medication oral med Meds Resolve 2018-052019-05-15 Calista assistance d 2-27 09:03:00 (Nava) required 09:00: Lindquist 00 [id number] Medication potential Meds Resolve 2018-052019-05-15 Calista clinically d 2-27 09:03:00 (Nava) significant 09:00: Lindquist medication 00 [id number] issue Musculoskel requires Musculoske Resolve 2018-052019-05-22 Calista etal human letal d 2-27 09:25:00 (Nava) assist to 09:00: Lindquist leave home 00 [id number] Musculoskel transfer Musculoske Resolve 2018-052019-05-22 Calista etal assistance letal d 2-27 09:25:00 (Nava) required 09:00: Lindquist 00 [id number] Pain knowledge/s Pain Mgmt Active 2018-05 Gio kill 2-27 Shilpa deficit: pt 13:31: [id number] Safety structural Safety Resolve 2018-052019-05-26 Gio barriers d 2-27 10:25:00 Shilpa present 13:31: [id number] Diagnoses knowledge/s Diagnoses Active 2018-05 Gio kill 2- Shilpa deficit: pt 13:31: [id number] Gait/Locomo gait PT/OT: Active 2018-05 Gio tion deficit Gait/Locom 2-27 Kobziewicz problems otion 13:31: [id number] 00 Social financial BASHIR: Active [facility] resource Social 05-15 [place] deficit Services 11:00: [id number] 00 Social knowledge/s BASHIR: Resolve 2020-0 2019-05-15 [facility] kill Social d 05-15 11:00:00 [place] deficit - Services 11:00: [id number] pt 00 Social knowledge/s BASHIR: Resolve 2019-05-15 [facility] kill Social d 05-15 11:00:00 [place] deficit - Services 11:00: [id number] cg 00 Musculoskel requires Musculoske Resolve 2019-05-26 María etal human letal d 05-26 10:25:00 [place] assist to 10:25: RN leave home 00 Social knowledge/s BASHIR: Active María Services kill Social 05-26 [place] deficit - Services 10:25: RN pt 00 Safety can be left Safety Active 2019- María alone for 1-20 [place] only short 11:25: RN periods 00 Musculoskel requires Musculoske Resolve 2020-2019-06-01 María etal human letal d 05-29 14:12:00 [place] assist to 11:25: RN leave home 00 Musculoskel requires Musculoske Active María etal human letal 06-05 [place] assist to 11:38: RN leave home 00 Allergies, Adverse Reactions, Alerts Allergy Allergy Type Status Severity Reaction(s) Onset Inactive Treating Comments Name Date Date Clinician aspirin Base Active Unknown Reaction 2019-04 Interface Ingredient Unknown -20 venom-hon Base Active Unknown Reaction 2019-04 Unknown ey bee Ingredient Unknown -20 Medications Ordered Filled Start Stop Current Ordering Indication Dosage Frequency Signature Comments Components Medication Medication Date Date Medication? Clinician (SIG) Name Name Docusate Docusate 2018-05 Yes Robe Unknown Unknown Cap* Cap* 2 Madison HUMPHREY citalopram citalopram 2018-05 Yes Robe Unknown Unknown 20 mg 20 mg 07-06 [place] HUMPHREY tablet tablet Ondansetron Ondansetron 2018-05 Yes Robe Unknown Unknown 07-06 [place] HUMPHREY Furosemide Furosemide 2018-05 Yes Robe Unknown Unknown 07-06 [place] HUMPHREY dexAMETHaso dexAMETHaso 2018-05 Yes Robe Unknown Unknown ne 2 mg ne 2 mg 07-06 [place] HUMPHREY tablet tablet oxyCODONE 5 oxyCODONE 5 Yes Robe Unknown Unknown mg tablet mg tablet 05-12 [place] HUMPHREY morphine ER morphine ER 2018-05 Yes Robe Unknown Unknown 15 mg 15 mg 07-06 Madison HUMHPREY tablet,exte tablet,exte nded nded release release omeprazole omeprazole Yes Robe Unknown Unknown 20 mg 20 mg 05-26 [place] HUMPHREY capsule,del capsule,del ayed ayed release release Aleve 220 Aleve 220 Yes Robe Unknown Unknown mg capsule mg capsule 05-26 Madison HUMPHREY Verzenio Verzenio Yes Robe Unknown Unknown 150 mg 150 mg 05-30 Madison HUMPHREY tablet tablet Imodium A-D Imodium A-D Yes Robe Unknown Unknown 2 mg tablet 2 mg tablet 06-12 Madison HUMPHREY Vital Signs Vital Name Observation Time Observation Value Comments SYSTOLIC mm[Hg] 2019-06-12 18:10:12 112 mm[Hg] mm[Hg] Method: Sit SYSTOLIC mm[Hg] 2019-05-11 18:09:40 122 mm[Hg] mm[Hg] Method: Stand DIASTOLIC mm[Hg] 2019-06-12 18:10:12 76 mm[Hg] mm[Hg] Method: Sit DIASTOLIC mm[Hg] 2019-05-11 18:09:40 80 mm[Hg] mm[Hg] Method: Stand PULSE 2019-06-12 18:10:12 90 /min /min RESP RATE 2019-06-12 18:10:12 16 /min /min TEMP 2019-06-12 18:10:12 97.7 [degF] Procedures This patient has no known procedures. Results Test Description Test Time Test Comments Text Results Atomic Results Result Comments Whole blood international 2019-04-27 15:00:00 Identifier [id number] Result Unknown normalized ratio (INR) Time 2019-04-27 15:00:00 Test Item Value Reference Range Comments Whole blood international normalized ratio (INR) (test code 0.97 Unknown Unknown F = [id number]) Ordering Physician Unknown
--- OUTSIDE RECORDS SUMMARY | 2019-06-29 15:38 | XMS REPORT ---
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-05 María obstructive obstructive 2-27 [place] pulmonary pulmonary RN disease, disease, unspecified unspecified Pain frequent Pain Mgmt Active 2018-05 Calista pain 2-27 (Nava) 09:00: Lindquist 00 [id number] Respiratory dyspnea Respirator Resolve 2018-052019-05-22 Calista present y d 2-27 09:25:00 (Nava) 09:00: Lindquist 00 [id number] Sensory impaired Sensory Resolve 2018-052019-05-26 Calista hearing d 2-27 10:25:00 (Nava) 09:00: Lindquist 00 [id number] Integument skin Integument Resolve 2018-052019-05-15 Calista integrity d 2-27 09:03:00 (Nava) risk 09:00: Lindquist 00 [id number] Elimination urinary Eliminatio Resolve 2018-052019-05-12 Calista incontinenc n d 2-27 11:00:00 (Nava) e 09:00: Lindquist 00 [id number] Neuro depressive Neuro/Emot Active 2018-05 Calista feelings ion 2-27 (Nava) present 09:00: Lindquist [id number] Neuro impaired Neuro/Emot Active 2018-05 Calista decision-ma ion 2-27 (Nava) jamie 09:00: Lindquist 00 [id number] Neuro confusion Neuro/Emot Active 2018-05 Calista present ion 2-27 (Nava) 09:00: Lindquist 00 [id number] Neuro memory Neuro/Emot Active 2018-05 Calista deficit ion 2-27 (Nava) needing 09:00: Lindquist supervision 00 [id number] Activity ADL Activity Resolve 2018-052019-05-26 Calista assistance d 2-27 10:25:00 (Nava) required 09:00: Lindquist [id number] Activity self-care Activity Resolve 2018-052019-05-26 Calista deficit d 2-27 10:25:00 (Nava) 09:00: Lindquist 00 [id number] Safety risk for Safety Active 2018-05 Calista hospitaliza 2-27 (Nava) tion 09:00: Lindquist 00 [id number] Safety can be left Safety Resolve 2018-052019-05-26 Calista alone for d 2-27 10:25:00 (Nava) only short 09:00: Lindquist periods 00 [id number] Safety fall risk Safety Active 2018-05 Calista factor 2-27 (Nava) present 09:00: Lindquist [id number] Medication oral med Meds Resolve 2018-052019-05-15 Calista assistance d 2-27 09:03:00 (Nava) required 09:00: Lindquist 00 [id number] Medication potential Meds Resolve 2018-052019-05-15 Calista clinically d 2-27 09:03:00 (Nava) significant 09:00: Lindquist medication 00 [id number] issue Musculoskel requires Musculoske Resolve 2018-052019-05-22 Calista etal human letal d 2-27 09:25:00 (Nava) assist to 09:00: Lindquist leave home 00 [id number] Musculoskel transfer Musculoske Resolve 2018-052019-05-22 Calista etal assistance letal d 2-27 09:25:00 (Nava) required 09:00: Lindquist 00 [id number] Pain knowledge/s Pain Mgmt Active 2018-05 Gio kill 2-27 Shilpa deficit: pt 13:31: [id number] 00 Safety structural Safety Resolve 2018-052019-05-26 Gio barriers d 2-27 10:25:00 Shilpa present 13:31: [id number] 00 Diagnoses knowledge/s Diagnoses Active 2018-05 Gio kill 2- Shilpa deficit: pt 13:31: [id number] 00 Gait/Locomo gait PT/OT: Active 2018-05 Gio tion deficit Gait/Locom 2-27 Kobziewicz problems otion 13:31: [id number] 00 Social financial BASHIR: Active [facility] resource Social 05-15 [place] deficit Services 11:00: [id number] 00 Social knowledge/s BASHIR: Resolve 2020-0 2019-05-15 [facility] kill Social d 05-15 11:00:00 [place] deficit - Services 11:00: [id number] pt 00 Social knowledge/s BASHIR: Resolve 2019-05-15 [facility] kill Social d 05-15 11:00:00 [place] deficit - Services 11:00: [id number] cg 00 Musculoskel requires Musculoske Resolve 2019-05-26 [...] Robe Unknown Unknown 20 mg 20 mg - [place] HUMPHREY tablet tablet Ondansetron Ondansetron 2018-05 Yes Robe Unknown Unknown 07-06 [place] HUMPHREY Furosemide Furosemide 2018-05 Yes Robe Unknown Unknown 07-06 [place] HUMPHREY dexAMETHaso dexAMETHaso 2018-05 Yes Robe Unknown Unknown ne 2 mg ne 2 mg 07-06 [place] HUMPHREY tablet tablet oxyCODONE 5 oxyCODONE 5 Yes Robe Unknown Unknown mg tablet mg tablet 1- [place] HUMPHREY morphine ER morphine ER 2018-05 Yes Robe Unknown Unknown 15 mg 15 mg 07-06 [place] HUMPHREY tablet,exte tablet,exte nded nded release release omeprazole omeprazole Yes Robe Unknown Unknown 20 mg 20 mg 05-26 ,Madison capsule,del capsule,del ayed ayed release release Aleve 220 Aleve 220 Yes Robe Unknown Unknown mg capsule mg capsule 05-26 [place] HUMPHREY Verzenio Verzenio Yes Robe Unknown Unknown 150 mg 150 mg 05-30 [place] HUMPHREY tablet tablet Imodium A-D Imodium A-D Yes Robe Unknown Unknown 2 mg tablet 2 mg tablet 06-12 [place] HUMPHREY oxyCODONE oxyCODONE Yes Senner Unknown Unknown 10 mg 10 mg 2-10 D.O.,Jilli tablet tablet an D Vital Signs Vital Name Observation Time Observation Value Comments SYSTOLIC mm[Hg] 2019-06-19 18:10:19 106 mm[Hg] mm[Hg] Method: Sit SYSTOLIC mm[Hg] 2019-05-11 18:09:40 122 mm[Hg] mm[Hg] Method: Stand DIASTOLIC mm[Hg] 2019-06-19 18:10:19 70 mm[Hg] mm[Hg] Method: Sit DIASTOLIC mm[Hg] 2019-05-11 18:09:40 80 mm[Hg] mm[Hg] Method: Stand PULSE 2019-06-19 18:10:19 75 /min /min RESP RATE 2019-06-19 18:10:19 16 /min /min TEMP 2019-06-19 18:10:19 97.5 [degF] Procedures This patient has no known procedures. Results Test Description Test Time Test Comments Text Results Atomic Results Result Comments Whole blood international 2019-04-27 15:00:00 Identifier [id number] Result Unknown normalized ratio (INR) Time 2019-04-27 15:00:00 Test Item Value Reference Range Comments Whole blood international normalized ratio (INR) (test code 0.97 Unknown Unknown F = [id number]) Ordering Physician Unknown
--- OUTSIDE RECORDS SUMMARY | 2019-06-29 15:38 | XMS REPORT ---
:1960 Author Organization [facility] Care Team Providers Name Role Phone Unavailable [...] Calista pain 2-27 (Nava) 09:00: Lindquist 00 [id number] Respiratory dyspnea Respirator Resolve 2018-052019-05-22 Calista present y d 2-27 09:25:00 (Nava) 09:00: Lindquist 00 [id number] Sensory impaired Sensory Resolve 2018-052019-05-26 Calista hearing d 2-27 10:25:00 (Nava) 09:00: Lindquist 00 [id number] Integument skin Integument Resolve 2018-052019-05-15 Calista integrity d 2-27 09:03:00 (Nava) risk 09:00: Lindquist 00 [id number] Elimination urinary Eliminatio Resolve 2018-052019-05-12 Calista incontinenc n d 2-27 11:00:00 (Nava) e 09:00: Lindquist 00 [id number] Neuro depressive Neuro/Emot Active 2018-05 Calista feelings ion 2-27 (Nava) present 09:00: Lindquist [id number] Neuro impaired Neuro/Emot Active 2018-05 Calista decision-ma ion 2-27 (Nava) jamie 09:00: Lindquist 00 [id number] Neuro confusion Neuro/Emot Active 2018-05 Calista present ion 2-27 (Nava) 09:00: Lindquist 00 [id number] Neuro memory Neuro/Emot Active 2018-05 Calista deficit ion 2-27 (Nava) needing 09:00: Lindquist supervision 00 [id number] Activity ADL Activity Resolve 2018-052019-05-26 Calista assistance d 2-27 10:25:00 (Nava) required 09:00: Lindquist [id number] Activity self-care Activity Resolve 2018-052019-05-26 Calista deficit d 2-27 10:25:00 (Nava) 09:00: Lindquist 00 [id number] Safety risk for Safety Active 2018-05 Calista hospitaliza 2-27 (Nava) tion 09:00: Lindquist 00 [id number] Safety can be left Safety Resolve 2018-052019-05-26 Calista alone for d 2-27 10:25:00 (Nava) only short 09:00: Lindquist periods 00 [id number] Safety fall risk Safety Active 2018-05 Calista factor 2-27 (Nava) present 09:00: Lindquist [id number] Medication oral med Meds Resolve 2018-052019-05-15 Calista assistance d 2-27 09:03:00 (Nava) required 09:00: Lindquist 00 [id number] Medication potential Meds Resolve 2018-052019-05-15 Calista clinically d 2-27 09:03:00 (Nava) significant 09:00: Lindquist medication 00 [id number] issue Musculoskel requires Musculoske Resolve 2018-052019-05-22 Calista etal human letal d 2-27 09:25:00 (Nava) assist to 09:00: Lindquist leave home 00 [id number] Musculoskel transfer Musculoske Resolve 2018-052019-05-22 Calista etal assistance letal d 2-27 09:25:00 (Nava) required 09:00: Lindquist 00 [id number] Pain knowledge/s Pain Mgmt Active 2018-05 Gio kill 2-27 Shilpa deficit: pt 13:31: [id number] 00 Safety structural Safety Resolve 2018-052019-05-26 Gio barriers d 2-27 10:25:00 Shilpa present 13:31: [id number] 00 Diagnoses knowledge/s Diagnoses Active 2018-05 Gio kill 2- Shilpa deficit: pt 13:31: [id number] 00 Gait/Locomo gait PT/OT: Active 2018-05 Gio tion deficit Gait/Locom 2-27 Kobziewicz problems otion 13:31: [id number] 00 Social financial BASHIR: Active [facility] resource Social 05-15 [place] deficit Services 11:00: [id number] 00 Social knowledge/s BASHIR: Resolve 2020-0 2019-05-15 [facility] kill Social d 05-15 11:00:00 [place] deficit - Services 11:00: [id number] pt 00 Social knowledge/s BASHIR: Resolve 2019-05-15 [facility] kill Social d 05-15 11:00:00 [place] deficit - Services 11:00: [id number] cg 00 Musculoskel requires Musculoske Resolve 2019-05-26 [...] Comments Whole blood international 2019-04-27 15:00:00 Identifier [id number] Result Unknown normalized ratio (INR) Time 2019-04-27 15:00:00 Test Item Value Reference Range Comments Whole blood international normalized ratio (INR) (test code 0.97 Unknown Unknown F = [id number]) Ordering Physician Unknown
--- OUTSIDE RECORDS SUMMARY | 2019-06-29 15:38 | XMS REPORT ---
:1960 Author Organization [facility] Care Team Providers Name Role Phone Unavailable [...] Calista pain 2-27 (Nava) 09:00: Lindquist 00 [id number] Respiratory dyspnea Respirator Resolve 2018-052019-05-22 Calista present y d 2-27 09:25:00 (Nava) 09:00: Lindquist 00 [id number] Sensory impaired Sensory Resolve 2018-052019-05-26 Calista hearing d 2-27 10:25:00 (Nava) 09:00: Lindquist 00 [id number] Integument skin Integument Resolve 2018-052019-05-15 Calista integrity d 2-27 09:03:00 (Nava) risk 09:00: Lindquist 00 [id number] Elimination urinary Eliminatio Resolve 2018-052019-05-12 Calista incontinenc n d 2-27 11:00:00 (Nava) e 09:00: Lindquist 00 [id number] Neuro depressive Neuro/Emot Resolve 2018-052019-06-19 Calista feelings ion d 2-27 14:05:00 (Nava) present 09:00: Lindquist 00 [id number] Neuro impaired Neuro/Emot Resolve 2018-052019-06-19 Calista decision-ma ion d 2-27 14:05:00 (Nava) jamie 09:00: Lindquist 00 [id number] Neuro confusion Neuro/Emot Resolve 2018-052019-06-19 Calista present ion d 2-27 14:05:00 (Nava) 09:00: Lindquist 00 [id number] Neuro memory Neuro/Emot Active 2018-05 Calista deficit ion 2-27 (Nava) needing 09:00: Lindquist supervision 00 [id number] Activity ADL Activity Resolve 2018-052019-05-26 Calista assistance d 2-27 10:25:00 (Nava) required 09:00: Lindquist [id number] Activity self-care Activity Resolve 2018-052019-05-26 Calista deficit d 2-27 10:25:00 (Nava) 09:00: Lindquist 00 [id number] Safety risk for Safety Resolve 2018-052019-06-19 Calista hospitaliza d 2-27 14:05:00 (Nava) tion 09:00: Lindquist [id number] Safety can be left Safety Resolve 2018-052019-05-26 Calista alone for d 2-27 10:25:00 (Nava) only short 09:00: Lindquist periods 00 [id number] Safety fall risk Safety Resolve 2018-052019-06-19 Calista factor d 2-27 14:05:00 (Nava) present 09:00: Lindquist [id number] Medication oral med Meds Resolve 2018-052019-05-15 Calista assistance d 2-27 09:03:00 (Nava) required 09:00: Lindquist 00 [id number] Medication potential Meds Resolve 2018-052019-05-15 Calista clinically d 2-27 09:03:00 (Nava) significant 09:00: Lindquist medication 00 [id number] issue Musculoskel requires Musculoske Resolve 2018-052019-05-22 Calista etal human letal d 2-27 09:25:00 (Nava) assist to 09:00: Lindquist leave home 00 [id number] Musculoskel transfer Musculoske Resolve 2018-052019-05-22 Calista etal assistance letal d 2-27 09:25:00 (Nava) required 09:00: Lindquist 00 [id number] Pain knowledge/s Pain Mgmt Active 2018-05 Gio flores 2- Shilpa deficit: pt 13:31: [id number] 00 Safety structural Safety Resolve 2018-052019-05-26 Gio barriers d 2- 10:25:00 Shilpa present 13:31: [id number] Diagnoses knowledge/s Diagnoses Active 2018-05 Gio flores 2 Shilpa deficit: pt 13:31: [id number] 00 Gait/Locomo gait PT/OT: Active 2018-05 Gio tion deficit Gait/Locom 2- Kobziewicz problems otion 13:31: [id number] 00 Social financial BASHIR: Active [facility] resource Social 05-15 [place] deficit Services 11:00: [id number] 00 Social knowledge/s BASHIR: Resolve 2019-05-15 [facility] kill Social d 05-15 11:00:00 [place] deficit - Services 11:00: [id number] pt 00 Social knowledge/s BASHIR: Resolve 2019-05-15 [facility] kill Social d 05-15 11:00:00 [place] deficit - Services 11:00: [id number] cg 00 Musculoskel requires Musculoske Resolve 2019-05-26 María etal human letal d 05-26 10:25:00 [place] assist to 10:25: RN leave home 00 Social knowledge/s BASHIR: Active María Services kill Social 05-26 [place] deficit - Services 10:25: RN pt 00 Safety can be left Safety Active María alone for - [place] only short 11:25: RN periods 00 Musculoskel requires Musculoske Resolve 2019-06-01 María etal human letal d 05-29 14:12:00 [...] 2018-05 Yes Robe Unknown Unknown Cap* Cap* 07-06 [place] HUMPHREY citalopram citalopram 2018-05 Yes Robe [...] Comments Whole blood international 2019-04-27 15:00:00 Identifier [id number] Result Unknown normalized ratio (INR) Time 2019-04-27 15:00:00 Test Item Value Reference Range Comments Whole blood international normalized ratio (INR) (test code 0.97 Unknown Unknown F = [id number]) Ordering Physician Unknown
--- OUTSIDE RECORDS SUMMARY | 2019-06-29 15:38 | XMS REPORT ---
:1960 Author Organization [facility] Care Team Providers Name Role Phone Unavailable [...] Calista pain 2-27 (Nava) 09:00: Lindquist 00 [id number] Respiratory dyspnea Respirator Resolve 2018-052019-05-22 Calista present y d 2-27 09:25:00 (Nava) 09:00: Lindquist 00 [id number] Sensory impaired Sensory Resolve 2018-052019-05-26 Calista hearing d 2-27 10:25:00 (Nava) 09:00: Lindquist 00 [id number] Integument skin Integument Resolve 2018-052019-05-15 Calista integrity d 2-27 09:03:00 (Nava) risk 09:00: Lindquist 00 [id number] Elimination urinary Eliminatio Resolve 2018-052019-05-12 Calista incontinenc n d 2-27 11:00:00 (Nava) e 09:00: Lindquist 00 [id number] Neuro depressive Neuro/Emot Active 2018-05 Calista feelings ion 2-27 (Nava) present 09:00: Lindquist [id number] Neuro impaired Neuro/Emot Active 2018-05 Calista decision-ma ion 2-27 (Nava) jamie 09:00: Lindquist 00 [id number] Neuro confusion Neuro/Emot Active 2018-05 Calista present ion 2-27 (Nava) 09:00: Lindquist 00 [id number] Neuro memory Neuro/Emot Active 2018-05 Calista deficit ion 2-27 (Nava) needing 09:00: Lindquist supervision 00 [id number] Activity ADL Activity Resolve 2018-052019-05-26 Calista assistance d 2-27 10:25:00 (Nava) required 09:00: Lindquist [id number] Activity self-care Activity Resolve 2018-052019-05-26 Calista deficit d 2-27 10:25:00 (Nava) 09:00: Lindquist 00 [id number] Safety risk for Safety Active 2018-05 Calista hospitaliza 2-27 (Nava) tion 09:00: Lindquist 00 [id number] Safety can be left Safety Resolve 2018-052019-05-26 Calista alone for d 2-27 10:25:00 (Nava) only short 09:00: Lindquist periods 00 [id number] Safety fall risk Safety Active 2018-05 Calista factor 2-27 (Nava) present 09:00: Lindquist [id number] Medication oral med Meds Resolve 2018-052019-05-15 Calista assistance d 2-27 09:03:00 (Nava) required 09:00: Lindquist 00 [id number] Medication potential Meds Resolve 2018-052019-05-15 Calista clinically d 2-27 09:03:00 (Nava) significant 09:00: Lindquist medication 00 [id number] issue Musculoskel requires Musculoske Resolve 2018-052019-05-22 Calista etal human letal d 2-27 09:25:00 (Nava) assist to 09:00: Lindquist leave home 00 [id number] Musculoskel transfer Musculoske Resolve 2018-052019-05-22 Calista etal assistance letal d 2-27 09:25:00 (Nava) required 09:00: Lindquist 00 [id number] Pain knowledge/s Pain Mgmt Active 2018-05 Gio kill 2-27 Shilpa deficit: pt 13:31: [id number] 00 Safety structural Safety Resolve 2018-052019-05-26 Gio barriers d 2-27 10:25:00 Shilpa present 13:31: [id number] 00 Diagnoses knowledge/s Diagnoses Active 2018-05 Gio kill 2- Shilpa deficit: pt 13:31: [id number] 00 Gait/Locomo gait PT/OT: Active 2018-05 Gio tion deficit Gait/Locom 2-27 Kobziewicz problems otion 13:31: [id number] 00 Social financial BASHIR: Active [facility] resource Social 05-15 [place] deficit Services 11:00: [id number] 00 Social knowledge/s BASHIR: Resolve 2020-0 2019-05-15 [facility] kill Social d 05-15 11:00:00 [place] deficit - Services 11:00: [id number] pt 00 Social knowledge/s BASHIR: Resolve 2019-05-15 [facility] kill Social d 05-15 11:00:00 [place] deficit - Services 11:00: [id number] cg 00 Musculoskel requires Musculoske Resolve 2019-05-26 [...] Comments Whole blood international 2019-04-27 15:00:00 Identifier [id number] Result Unknown normalized ratio (INR) Time 2019-04-27 15:00:00 Test Item Value Reference Range Comments Whole blood international normalized ratio (INR) (test code 0.97 Unknown Unknown F = [id number]) Ordering Physician Unknown
--- OUTSIDE RECORDS SUMMARY | 2019-06-29 15:38 | XMS REPORT ---
:1960 Author Organization [facility] Care Team Providers Name Role Phone Unavailable [...] Calista pain 2-27 (Nava) 09:00: Lindquist 00 [id number] Respiratory dyspnea Respirator Resolve 2018-052019-05-22 Calista present y d 2-27 09:25:00 (Nava) 09:00: Lindquist 00 [id number] Sensory impaired Sensory Resolve 2018-052019-05-26 Calista hearing d 2-27 10:25:00 (Nava) 09:00: Lindquist 00 [id number] Integument skin Integument Resolve 2018-052019-05-15 Calista integrity d 2-27 09:03:00 (Nava) risk 09:00: Lindquist 00 [id number] Elimination urinary Eliminatio Resolve 2018-052019-05-12 Calista incontinenc n d 2-27 11:00:00 (Nava) e 09:00: Lindquist 00 [id number] Neuro depressive Neuro/Emot Active 2018-05 Calista feelings ion 2-27 (Nava) present 09:00: Lindquist [id number] Neuro impaired Neuro/Emot Active 2018-05 Calista decision-ma ion 2-27 (Nava) jamie 09:00: Lindquist 00 [id number] Neuro confusion Neuro/Emot Active 2018-05 Calista present ion 2-27 (Nava) 09:00: Lindquist 00 [id number] Neuro memory Neuro/Emot Active 2018-05 Calista deficit ion 2-27 (Nava) needing 09:00: Lindquist supervision 00 [id number] Activity ADL Activity Resolve 2018-052019-05-26 Calista assistance d 2-27 10:25:00 (Nava) required 09:00: Lindquist [id number] Activity self-care Activity Resolve 2018-052019-05-26 Calista deficit d 2-27 10:25:00 (Nava) 09:00: Lindquist 00 [id number] Safety risk for Safety Active 2018-05 Calista hospitaliza 2-27 (Nava) tion 09:00: Lindquist 00 [id number] Safety can be left Safety Resolve 2018-052019-05-26 Calista alone for d 2-27 10:25:00 (Nava) only short 09:00: Lindquist periods 00 [id number] Safety fall risk Safety Active 2018-05 Calista factor 2-27 (Nava) present 09:00: Lindquist [id number] Medication oral med Meds Resolve 2018-052019-05-15 Calista assistance d 2-27 09:03:00 (Nava) required 09:00: Lindquist 00 [id number] Medication potential Meds Resolve 2018-052019-05-15 Calista clinically d 2-27 09:03:00 (Nava) significant 09:00: Lindquist medication 00 [id number] issue Musculoskel requires Musculoske Resolve 2018-052019-05-22 Calista etal human letal d 2-27 09:25:00 (Nava) assist to 09:00: Lindquist leave home 00 [id number] Musculoskel transfer Musculoske Resolve 2018-052019-05-22 Calista etal assistance letal d 2-27 09:25:00 (Nava) required 09:00: Lindquist 00 [id number] Pain knowledge/s Pain Mgmt Active 2018-05 Gio kill 2-27 Shilpa deficit: pt 13:31: [id number] 00 Safety structural Safety Resolve 2018-052019-05-26 Gio barriers d 2-27 10:25:00 Shilpa present 13:31: [id number] 00 Diagnoses knowledge/s Diagnoses Active 2018-05 Gio kill 2- Shilpa deficit: pt 13:31: [id number] 00 Gait/Locomo gait PT/OT: Active 2018-05 Igo tion deficit Gait/Locom 2-27 Kobziewicz problems otion 13:31: [id number] 00 Social financial BASHIR: Active [facility] resource Social 05-15 [place] deficit Services 11:00: [id number] 00 Social knowledge/s BASHIR: Resolve 2020-0 2019-05-15 [facility] kill Social d 05-15 11:00:00 [place] deficit - Services 11:00: [id number] pt 00 Social knowledge/s BASHIR: Resolve 2019-05-15 [facility] kill Social d 05-15 11:00:00 [place] deficit - Services 11:00: [id number] cg 00 Musculoskel requires Musculoske Resolve 2019-05-26 [...] 150 mg 05-30 Madison HUMPHREY tablet tablet Vital Signs Vital Name Observation Time Observation Value Comments SYSTOLIC mm[Hg] 2019-06-05 18:10:05 126 mm[Hg] mm[Hg] Method: Sit SYSTOLIC mm[Hg] 2019-05-11 18:09:40 122 mm[Hg] mm[Hg] Method: Stand DIASTOLIC mm[Hg] 2019-06-05 18:10:05 80 mm[Hg] mm[Hg] Method: Sit DIASTOLIC mm[Hg] 2019-05-11 18:09:40 80 mm[Hg] mm[Hg] Method: Stand PULSE 2019-06-05 18:10:05 87 /min /min RESP RATE 2019-06-05 18:10:05 16 /min /min TEMP 2019-06-05 18:10:05 97.7 [degF] Procedures This patient has no known procedures. Results Test Description Test Time Test Comments Text Results Atomic Results Result Comments Whole blood international 2019-04-27 15:00:00 Identifier [id number] Result Unknown normalized ratio (INR) Time 2019-04-27 15:00:00 Test Item Value Reference Range Comments Whole blood international normalized ratio (INR) (test code 0.97 Unknown Unknown F = [id number]) Ordering Physician Unknown
--- OUTSIDE RECORDS SUMMARY | 2019-06-29 15:38 | XMS REPORT ---
:1960 Author Organization [facility] Care Team Providers Name Role Phone Unavailable [...] Calista pain 2-27 (Nava) 09:00: Lindquist 00 [id number] Respiratory dyspnea Respirator Resolve 2018-052019-05-22 Calista present y d 2-27 09:25:00 (Nava) 09:00: Lindquist 00 [id number] Sensory impaired Sensory Resolve 2018-052019-05-26 Calista hearing d 2-27 10:25:00 (Nava) 09:00: Lindquist 00 [id number] Integument skin Integument Resolve 2018-052019-05-15 Calista integrity d 2-27 09:03:00 (Nava) risk 09:00: Lindquist 00 [id number] Elimination urinary Eliminatio Resolve 2018-052019-05-12 Calista incontinenc n d 2-27 11:00:00 (Nava) e 09:00: Lindquist 00 [id number] Neuro depressive Neuro/Emot Resolve 2018-052019-06-19 Calista feelings ion d 2-27 14:05:00 (Nava) present 09:00: Lindquist 00 [id number] Neuro impaired Neuro/Emot Resolve 2018-052019-06-19 Calista decision-ma ion d 2-27 14:05:00 (Nava) jamie 09:00: Lindquist 00 [id number] Neuro confusion Neuro/Emot Resolve 2018-052019-06-19 Calista present ion d 2-27 14:05:00 (Nava) 09:00: Lindquist 00 [id number] Neuro memory Neuro/Emot Active 2018-05 Calista deficit ion 2-27 (Nava) needing 09:00: Lindquist supervision 00 [id number] Activity ADL Activity Resolve 2018-052019-05-26 Calista assistance d 2-27 10:25:00 (Nava) required 09:00: Lindquist [id number] Activity self-care Activity Resolve 2018-052019-05-26 Calista deficit d 2-27 10:25:00 (Nava) 09:00: Lindquist 00 [id number] Safety risk for Safety Resolve 2018-052019-06-19 Calista hospitaliza d 2-27 14:05:00 (Nava) tion 09:00: Lindquist [id number] Safety can be left Safety Resolve 2018-052019-05-26 Calista alone for d 2-27 10:25:00 (Nava) only short 09:00: Lindquist periods 00 [id number] Safety fall risk Safety Resolve 2018-052019-06-19 Calista factor d 2-27 14:05:00 (Nava) present 09:00: Lindquist [id number] Medication oral med Meds Resolve 2018-052019-05-15 Calista assistance d 2-27 09:03:00 (Nava) required 09:00: Lindquist 00 [id number] Medication potential Meds Resolve 2018-052019-05-15 Calista clinically d 2-27 09:03:00 (Nava) significant 09:00: Lindquist medication 00 [id number] issue Musculoskel requires Musculoske Resolve 2018-052019-05-22 Calista etal human letal d 2-27 09:25:00 (Nava) assist to 09:00: Lindquist leave home 00 [id number] Musculoskel transfer Musculoske Resolve 2018-052019-05-22 Calista etal assistance letal d 2-27 09:25:00 (Nava) required 09:00: Lindquist 00 [id number] Pain knowledge/s Pain Mgmt Active 2018-05 Gio flores 2- Shilpa deficit: pt 13:31: [id number] Safety structural Safety Resolve 2018-052019-05-26 Gio barriers d 2- 10:25:00 Shilpa present 13:31: [id number] 00 Diagnoses knowledge/s Diagnoses Active 2018-05 Gio flores 2 Shilpa deficit: pt 13:31: [id number] 00 Gait/Locomo gait PT/OT: Active 2018-05 Gio tion deficit Gait/Locom 2- Kobziewicz problems otion 13:31: [id number] 00 Social financial BASHIR: Active [facility] resource Social 05-15 [place] deficit Services 11:00: [id number] 00 Social knowledge/s BASHIR: Resolve 2019-05-15 [facility] kill Social d 05-15 11:00:00 [place] deficit - Services 11:00: [id number] pt 00 Social knowledge/s BSAHIR: Resolve 2019-05-15 [facility] kill Social d 05-15 11:00:00 [place] deficit - Services 11:00: [id number] cg 00 Musculoskel requires Musculoske Resolve 2019-05-26 [...] Comments Whole blood international 2019-04-27 15:00:00 Identifier [id number] Result Unknown normalized ratio (INR) Time 2019-04-27 15:00:00 Test Item Value Reference Range Comments Whole blood international normalized ratio (INR) (test code 0.97 Unknown Unknown F = [id number]) Ordering Physician Unknown
--- OUTSIDE RECORDS SUMMARY | 2019-06-29 15:38 | XMS REPORT ---
:1960 Author Organization [facility] Care Team Providers Name Role Phone Unavailable [...] Calista pain 2-27 (Nava) 09:00: Lindquist 00 [id number] Respiratory dyspnea Respirator Resolve 2018-052019-05-22 Calista present y d 2-27 09:25:00 (Naav) 09:00: Lindquist 00 [id number] Sensory impaired Sensory Resolve 2018-052019-05-26 Calista hearing d 2-27 10:25:00 (Nava) 09:00: Lindquist 00 [id number] Integument skin Integument Resolve 2018-052019-05-15 Calista integrity d 2-27 09:03:00 (Nava) risk 09:00: Lindquist 00 [id number] Elimination urinary Eliminatio Resolve 2018-052019-05-12 Calista incontinenc n d 2-27 11:00:00 (Nava) e 09:00: Lindquist 00 [id number] Neuro depressive Neuro/Emot Resolve 2018-052019-06-19 Calista feelings ion d 2-27 14:05:00 (Nava) present 09:00: Lindquist 00 [id number] Neuro impaired Neuro/Emot Resolve 2018-052019-06-19 Calista decision-ma ion d 2-27 14:05:00 (Nava) jamie 09:00: Lindquist 00 [id number] Neuro confusion Neuro/Emot Resolve 2018-052019-06-19 Calista present ion d 2-27 14:05:00 (Nava) 09:00: Lindquist 00 [id number] Neuro memory Neuro/Emot Active 2018-05 Calista deficit ion 2-27 (Nava) needing 09:00: Lindquist supervision 00 [id number] Activity ADL Activity Resolve 2018-052019-05-26 Calista assistance d 2-27 10:25:00 (Nava) required 09:00: Lindquist [id number] Activity self-care Activity Resolve 2018-052019-05-26 Calista deficit d 2-27 10:25:00 (Nava) 09:00: Lindquist 00 [id number] Safety risk for Safety Resolve 2018-052019-06-19 Calista hospitaliza d 2-27 14:05:00 (Nava) tion 09:00: Lindquist [id number] Safety can be left Safety Resolve 2018-052019-05-26 Calista alone for d 2-27 10:25:00 (Nava) only short 09:00: Lindquist periods 00 [id number] Safety fall risk Safety Resolve 2018-052019-06-19 Calista factor d 2-27 14:05:00 (Nava) present 09:00: Lindquist [id number] Medication oral med Meds Resolve 2018-052019-05-15 Calista assistance d 2-27 09:03:00 (Nava) required 09:00: Lindquist 00 [id number] Medication potential Meds Resolve 2018-052019-05-15 Calista clinically d 2-27 09:03:00 (Nava) significant 09:00: Lindquist medication 00 [id number] issue Musculoskel requires Musculoske Resolve 2018-052019-05-22 Calista etal human letal d 2-27 09:25:00 (Nava) assist to 09:00: Lindquist leave home 00 [id number] Musculoskel transfer Musculoske Resolve 2018-052019-05-22 Calista etal assistance letal d 2-27 09:25:00 (Nava) required 09:00: Lindquist 00 [id number] Pain knowledge/s Pain Mgmt Active 2018-05 Gio kill 2- Shilpa deficit: pt 13:31: [id number] 00 Safety structural Safety Resolve 2018-052019-05-26 Gio barriers d 2-27 10:25:00 Shilpa present 13:31: [id number] 00 Diagnoses knowledge/s Diagnoses Active 2018-05 Gio kill 07-06 Shilpa deficit: pt 13:31: [id number] 00 Gait/Locomo gait PT/OT: Active 2018-05 Gio tion deficit Gait/Locom 2 Kobziewicz problems otion 13:31: [id number] 00 Social financial BASHIR: Active [facility] resource Social 05-15 [place] deficit Services 11:00: [id number] 00 Social knowledge/s BASHIR: Resolve 2019-05-15 [facility] kill Social d 05-15 11:00:00 [place] deficit - Services 11:00: [id number] pt 00 Social knowledge/s BASHIR: Resolve 2019-05-15 [facility] kill Social d 05-15 11:00:00 [place] deficit - Services 11:00: [id number] cg 00 Musculoskel requires Musculoske Resolve 2019-05-26 [...] assist to 11:38: RN leave home 00 Safety risk for Safety Active Bladimir hospitaliza 2-17 Nestor tion 11:15: [id number] 00 Safety fall risk Safety Active Bladimir factor 2-17 Nestor present 11:15: [id number] 00 Bed transfer PT/OT: Bed Active 2020-0 Bladimir Mobility/Tr deficit: Mobility/T 2-17 Nestor wu sit/stand ransfer 11:15: [id number] 00 Bed transfer PT/OT: Bed Active 2020-0 Bladimir Mobility/Tr deficit: Mobility/T 2-17 Nestor wu toilet/comm ransfer 11:15: [id number] ode 00 Bed transfer PT/OT: Bed Active 2019-0 Bladimir Mobility/Tr deficit: Mobility/T 2-17 Nestorremy wu shower/tub ransfer 11:15: [id number] 00 Bed transfer PT/OT: Bed Active 2019-0 Bladimir Mobility/Tr deficit: Mobility/T 2-17 Nestorremy wu vehicle ransfer 11:15: [id number] 00 Bed knowledge/s PT/OT: Bed Active 2019-0 Bladimir Mobility/Tr kill Mobility/T 2-17 Nestor ansfer deficit: pt ransfer 11:15: [id number] 00 Bed bed PT/OT: Bed Active 2019- Bladimir Mobility/Tr mobility Mobility/T 2-17 Nestor ansfer deficit ransfer 11:15: [id number] 00 Gait/Locomo gait PT/OT: Active 2019-0 Bladimir tion assistive Gait/Locom 2-17 Nestor problems device otion 11:15: [id number] present 00 Gait/Locomo knowledge/s PT/OT: Active 2019-0 Bladimir tion kill Gait/Locom 2-17 Nestor problems deficit: pt otion 11:15: [id number] 00 Cardio edema Cardiovasc Active 2019-0 María ular 2-17 Elsa 13:03: RN 00 Neuro impaired Neuro/Emot Active 2019-0 María decision-ma ion 2-17 Franknoske jamie 13:03: RN 00 Medication potential Meds Active 2019-0 María clinically 2-17 Franknoske 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 Allergies, Adverse Reactions, Alerts Allergy Allergy Type [...] ne 2 mg ne 2 mg 07-06 ,Madison tablet tablet oxyCODONE 5 oxyCODONE 5 Yes [...] Unknown Unknown 150 mg 150 mg 05-30 ,Madison tablet tablet Imodium A-D Imodium A-D Yes Robe Unknown Unknown 2 mg tablet 2 mg tablet 06-12 Madison HUMPHREY oxyCODONE oxyCODONE Yes Senner Unknown Unknown 10 mg 10 mg 2-10 D.O.,Jilli tablet tablet an D Vital Signs Vital Name Observation Time Observation Value Comments SYSTOLIC mm[Hg] 2019-06-26 18:10:26 112 mm[Hg] mm[Hg] Method: Sit SYSTOLIC mm[Hg] 2019-05-11 18:09:40 122 mm[Hg] mm[Hg] Method: Stand DIASTOLIC mm[Hg] 2019-06-26 18:10:26 74 mm[Hg] mm[Hg] Method: Sit DIASTOLIC mm[Hg] 2019-05-11 18:09:40 80 mm[Hg] mm[Hg] Method: Stand PULSE 2019-06-26 18:10:26 92 /min /min RESP RATE 2019-06-26 18:10:26 16 /min /min TEMP 2019-06-26 18:10:26 97.4 [degF] Procedures This patient has no known procedures. Results Test Description Test Time Test Comments Text Results Atomic Results Result Comments Whole blood international 2019-04-27 15:00:00 Identifier [id number] Result Unknown normalized ratio (INR) Time 2019-04-27 15:00:00 Test Item Value Reference Range Comments Whole blood international normalized ratio (INR) (test code 0.97 Unknown Unknown F = [id number]) Ordering Physician Unknown
--- OUTSIDE RECORDS SUMMARY | 2019-06-29 15:38 | XMS REPORT ---
:1960 Author Organization [facility] Care Team Providers Name Role Phone Unavailable [...] Calista pain 2-27 (Nava) 09:00: Lindquist 00 [id number] Respiratory dyspnea Respirator Resolve 2018-052019-05-22 Calista present y d 2-27 09:25:00 (Nava) 09:00: Lindquist 00 [id number] Sensory impaired Sensory Resolve 2018-052019-05-26 Calista hearing d 2-27 10:25:00 (Nava) 09:00: Lindquist 00 [id number] Integument skin Integument Resolve 2018-052019-05-15 Calista integrity d 2-27 09:03:00 (Nava) risk 09:00: Lindquist 00 [id number] Elimination urinary Eliminatio Resolve 2018-052019-05-12 Calista incontinenc n d 2-27 11:00:00 (Nava) e 09:00: Lindquist 00 [id number] Neuro depressive Neuro/Emot Active 2018-05 Calista feelings ion 2-27 (Nava) present 09:00: Lindquist [id number] Neuro impaired Neuro/Emot Active 2018-05 Calista decision-ma ion 2-27 (Nava) jamie 09:00: Lindquist 00 [id number] Neuro confusion Neuro/Emot Active 2018-05 Calista present ion 2-27 (Nava) 09:00: Lindquist 00 [id number] Neuro memory Neuro/Emot Active 2018-05 Calista deficit ion 2-27 (Nava) needing 09:00: Lindquist supervision 00 [id number] Activity ADL Activity Resolve 2018-052019-05-26 Calista assistance d 2-27 10:25:00 (Nava) required 09:00: Lindquist [id number] Activity self-care Activity Resolve 2018-052019-05-26 Calista deficit d 2-27 10:25:00 (Nava) 09:00: Lindquist 00 [id number] Safety risk for Safety Active 2018-05 Calista hospitaliza 2-27 (Nava) tion 09:00: Lindquist 00 [id number] Safety can be left Safety Resolve 2018-052019-05-26 Calista alone for d 2-27 10:25:00 (Nava) only short 09:00: Lindquist periods 00 [id number] Safety fall risk Safety Active 2018-05 Calista factor 2-27 (Nava) present 09:00: Lindquist [id number] Medication oral med Meds Resolve 2018-052019-05-15 Calista assistance d 2-27 09:03:00 (Nava) required 09:00: Lindquist 00 [id number] Medication potential Meds Resolve 2018-052019-05-15 Calista clinically d 2-27 09:03:00 (Nava) significant 09:00: Lindquist medication 00 [id number] issue Musculoskel requires Musculoske Resolve 2018-052019-05-22 Calista etal human letal d 2-27 09:25:00 (Nava) assist to 09:00: Lindquist leave home 00 [id number] Musculoskel transfer Musculoske Resolve 2018-052019-05-22 Calista etal assistance letal d 2-27 09:25:00 (Nava) required 09:00: Lindquist 00 [id number] Pain knowledge/s Pain Mgmt Active 2018-05 Gio kill 2-27 Shilpa deficit: pt 13:31: [id number] 00 Safety structural Safety Resolve 2018-052019-05-26 Gio barriers d 2-27 10:25:00 Shilpa present 13:31: [id number] 00 Diagnoses knowledge/s Diagnoses Active 2018-05 Gio kill 2- Shilpa deficit: pt 13:31: [id number] 00 Gait/Locomo gait PT/OT: Active 2018-05 Gio tion deficit Gait/Locom 2-27 Kobziewicz problems otion 13:31: [id number] 00 Social financial BASHIR: Active [facility] resource Social 05-15 [place] deficit Services 11:00: [id number] 00 Social knowledge/s BASHIR: Resolve 2020-0 2019-05-15 [facility] kill Social d 05-15 11:00:00 [place] deficit - Services 11:00: [id number] pt 00 Social knowledge/s BASHIR: Resolve 2019-05-15 [facility] kill Social d 05-15 11:00:00 [place] deficit - Services 11:00: [id number] cg 00 Musculoskel requires Musculoske Resolve 2019-05-26 [...] Comments Whole blood international 2019-04-27 15:00:00 Identifier [id number] Result Unknown normalized ratio (INR) Time 2019-04-27 15:00:00 Test Item Value Reference Range Comments Whole blood international normalized ratio (INR) (test code 0.97 Unknown Unknown F = [id number]) Ordering Physician Unknown
--- OUTSIDE RECORDS SUMMARY | 2019-06-29 15:38 | XMS REPORT ---
:1960 Author Organization [facility] Care Team Providers Name Role Phone Unavailable [...] Calista pain 2-27 (Nava) 09:00: Lindquist 00 [id number] Respiratory dyspnea Respirator Resolve 2018-052019-05-22 Calista present y d 2-27 09:25:00 (Nava) 09:00: Lindquist 00 [id number] Sensory impaired Sensory Resolve 2018-052019-05-26 Calista hearing d 2-27 10:25:00 (Nava) 09:00: Lindquist 00 [id number] Integument skin Integument Resolve 2018-052019-05-15 Calista integrity d 2-27 09:03:00 (Nava) risk 09:00: Lindquist 00 [id number] Elimination urinary Eliminatio Resolve 2018-052019-05-12 Calista incontinenc n d 2-27 11:00:00 (Nava) e 09:00: Lindquist 00 [id number] Neuro depressive Neuro/Emot Active 2018-05 Calista feelings ion 2-27 (Nava) present 09:00: Lindquist [id number] Neuro impaired Neuro/Emot Active 2018-05 Calista decision-ma ion 2-27 (Nava) jamie 09:00: Lindquist 00 [id number] Neuro confusion Neuro/Emot Active 2018-05 Calista present ion 2-27 (Nava) 09:00: Lindquist 00 [id number] Neuro memory Neuro/Emot Active 2018-05 Calista deficit ion 2-27 (Nava) needing 09:00: Lindquist supervision 00 [id number] Activity ADL Activity Resolve 2018-052019-05-26 Calista assistance d 2-27 10:25:00 (Nava) required 09:00: Lindquist [id number] Activity self-care Activity Resolve 2018-052019-05-26 Calista deficit d 2-27 10:25:00 (Nava) 09:00: Lindquist 00 [id number] Safety risk for Safety Active 2018-05 Calista hospitaliza 2-27 (Nava) tion 09:00: Lindquist 00 [id number] Safety can be left Safety Resolve 2018-052019-05-26 Calista alone for d 2-27 10:25:00 (Nava) only short 09:00: Lindquist periods 00 [id number] Safety fall risk Safety Active 2018-05 Calista factor 2-27 (Nava) present 09:00: Lindquist [id number] Medication oral med Meds Resolve 2018-052019-05-15 Calista assistance d 2-27 09:03:00 (Nava) required 09:00: Lindquist 00 [id number] Medication potential Meds Resolve 2018-052019-05-15 Calista clinically d 2-27 09:03:00 (Nava) significant 09:00: Lindquist medication 00 [id number] issue Musculoskel requires Musculoske Resolve 2018-052019-05-22 Calista etal human letal d 2-27 09:25:00 (Nava) assist to 09:00: Lindquist leave home 00 [id number] Musculoskel transfer Musculoske Resolve 2018-052019-05-22 Calista etal assistance letal d 2-27 09:25:00 (Nava) required 09:00: Lindquist 00 [id number] Pain knowledge/s Pain Mgmt Active 2018-05 Gio kill 2-27 Shilpa deficit: pt 13:31: [id number] 00 Safety structural Safety Resolve 2018-052019-05-26 Gio barriers d 2-27 10:25:00 Shilpa present 13:31: [id number] 00 Diagnoses knowledge/s Diagnoses Active 2018-05 Gio kill 2- Shilpa deficit: pt 13:31: [id number] 00 Gait/Locomo gait PT/OT: Active 2018-05 Gio tion deficit Gait/Locom 2-27 Kobziewicz problems otion 13:31: [id number] 00 Social financial BASHIR: Active [facility] resource Social 05-15 [place] deficit Services 11:00: [id number] 00 Social knowledge/s BASHIR: Resolve 2020-0 2019-05-15 [facility] kill Social d 05-15 11:00:00 [place] deficit - Services 11:00: [id number] pt 00 Social knowledge/s BASHIR: Resolve 2019-05-15 [facility] kill Social d 05-15 11:00:00 [place] deficit - Services 11:00: [id number] cg 00 Musculoskel requires Musculoske Resolve 2019-05-26 [...] Comments Whole blood international 2019-04-27 15:00:00 Identifier [id number] Result Unknown normalized ratio (INR) Time 2019-04-27 15:00:00 Test Item Value Reference Range Comments Whole blood international normalized ratio (INR) (test code 0.97 Unknown Unknown F = [id number]) Ordering Physician Unknown
--- OUTSIDE RECORDS SUMMARY | 2019-06-29 15:38 | XMS REPORT ---
:1960 Author Organization [facility] Care Team Providers Name Role Phone Unavailable [...] Calista pain 2-27 (Nava) 09:00: Lindquist 00 [id number] Respiratory dyspnea Respirator Resolve 2018-052019-05-22 Calista present y d 2-27 09:25:00 (Nava) 09:00: Lindquist 00 [id number] Sensory impaired Sensory Resolve 2018-052019-05-26 Calista hearing d 2-27 10:25:00 (Nava) 09:00: Lindquist 00 [id number] Integument skin Integument Resolve 2018-052019-05-15 Calista integrity d 2-27 09:03:00 (Nava) risk 09:00: Lindquist 00 [id number] Elimination urinary Eliminatio Resolve 2018-052019-05-12 Calista incontinenc n d 2-27 11:00:00 (Nava) e 09:00: Lindquist 00 [id number] Neuro depressive Neuro/Emot Active 2018-05 Calista feelings ion 2-27 (Nava) present 09:00: Lindquist [id number] Neuro impaired Neuro/Emot Active 2018-05 Calista decision-ma ion 2-27 (Nava) jamie 09:00: Lindquist 00 [id number] Neuro confusion Neuro/Emot Active 2018-05 Calista present ion 2-27 (Nava) 09:00: Lindquist 00 [id number] Neuro memory Neuro/Emot Active 2018-05 Calista deficit ion 2-27 (Nava) needing 09:00: Lindquist supervision 00 [id number] Activity ADL Activity Resolve 2018-052019-05-26 Calista assistance d 2-27 10:25:00 (Nava) required 09:00: Lindquist [id number] Activity self-care Activity Resolve 2018-052019-05-26 Calista deficit d 2-27 10:25:00 (Nava) 09:00: Lindquist 00 [id number] Safety risk for Safety Active 2018-05 Calista hospitaliza 2-27 (Nava) tion 09:00: Lindquist 00 [id number] Safety can be left Safety Resolve 2018-052019-05-26 Calista alone for d 2-27 10:25:00 (Nava) only short 09:00: Lindquist periods 00 [id number] Safety fall risk Safety Active 2018-05 Calista factor 2-27 (Nava) present 09:00: Lindquist [id number] Medication oral med Meds Resolve 2018-052019-05-15 Calista assistance d 2-27 09:03:00 (Nava) required 09:00: Lindquist 00 [id number] Medication potential Meds Resolve 2018-052019-05-15 Calista clinically d 2-27 09:03:00 (Nava) significant 09:00: Lindquist medication 00 [id number] issue Musculoskel requires Musculoske Resolve 2018-052019-05-22 Calista etal human letal d 2-27 09:25:00 (Nava) assist to 09:00: Lindquist leave home 00 [id number] Musculoskel transfer Musculoske Resolve 2018-052019-05-22 Calista etal assistance letal d 2-27 09:25:00 (Nava) required 09:00: Lindquist 00 [id number] Pain knowledge/s Pain Mgmt Active 2018-05 Gio kill 2-27 Shilpa deficit: pt 13:31: [id number] Safety structural Safety Resolve 2018-052019-05-26 Gio barriers d 2-27 10:25:00 Shilpa present 13:31: [id number] 00 Diagnoses knowledge/s Diagnoses Active 2018-05 Gio kill 2- Shilpa deficit: pt 13:31: [id number] 00 Gait/Locomo gait PT/OT: Active 2018-05 Gio tion deficit Gait/Locom 2-27 Kobziewicz problems otion 13:31: [id number] 00 Social financial BASHIR: Active [facility] resource Social 05-15 [place] deficit Services 11:00: [id number] 00 Social knowledge/s BASHIR: Resolve 2020-0 2019-05-15 [facility] kill Social d 05-15 11:00:00 [place] deficit - Services 11:00: [id number] pt 00 Social knowledge/s BASHIR: Resolve 2019-05-15 [facility] kill Social d 05-15 11:00:00 [place] deficit - Services 11:00: [id number] cg 00 Musculoskel requires Musculoske Resolve 2019-05-26 [...] Comments Whole blood international 2019-04-27 15:00:00 Identifier [id number] Result Unknown normalized ratio (INR) Time 2019-04-27 15:00:00 Test Item Value Reference Range Comments Whole blood international normalized ratio (INR) (test code 0.97 Unknown Unknown F = [id number]) Ordering Physician Unknown
--- OUTSIDE RECORDS SUMMARY | 2019-06-29 15:38 | XMS REPORT ---
:1960 Author Organization [facility] Care Team Providers Name Role Phone Unavailable [...] Calista pain 2-27 (Nava) 09:00: Lindquist 00 [id number] Respiratory dyspnea Respirator Resolve 2018-052019-05-22 Calista present y d 2-27 09:25:00 (Nava) 09:00: Lindquist 00 [id number] Sensory impaired Sensory Resolve 2018-052019-05-26 Calista hearing d 2-27 10:25:00 (Nava) 09:00: Lindquist 00 [id number] Integument skin Integument Resolve 2018-052019-05-15 Calista integrity d 2-27 09:03:00 (Nava) risk 09:00: Lindquist 00 [id number] Elimination urinary Eliminatio Resolve 2018-052019-05-12 Calista incontinenc n d 2-27 11:00:00 (Nava) e 09:00: Lindquist 00 [id number] Neuro depressive Neuro/Emot Active 2018-05 Calista feelings ion 2-27 (Nava) present 09:00: Lindquist [id number] Neuro impaired Neuro/Emot Active 2018-05 Calista decision-ma ion 2-27 (Nava) jamie 09:00: Lindquist 00 [id number] Neuro confusion Neuro/Emot Active 2018-05 Calista present ion 2-27 (Nava) 09:00: Lindquist 00 [id number] Neuro memory Neuro/Emot Active 2018-05 Calista deficit ion 2-27 (Nava) needing 09:00: Lindquist supervision 00 [id number] Activity ADL Activity Resolve 2018-052019-05-26 Calista assistance d 2-27 10:25:00 (Nava) required 09:00: Lindquist [id number] Activity self-care Activity Resolve 2018-052019-05-26 Calista deficit d 2-27 10:25:00 (Nava) 09:00: Lindquist 00 [id number] Safety risk for Safety Active 2018-05 Calista hospitaliza 2-27 (Nava) tion 09:00: Lindquist 00 [id number] Safety can be left Safety Resolve 2018-052019-05-26 Calista alone for d 2-27 10:25:00 (Nava) only short 09:00: Lindquist periods 00 [id number] Safety fall risk Safety Active 2018-05 Calista factor 2-27 (Nava) present 09:00: Lindquist [id number] Medication oral med Meds Resolve 2018-052019-05-15 Calista assistance d 2-27 09:03:00 (Nava) required 09:00: Lindquist 00 [id number] Medication potential Meds Resolve 2018-052019-05-15 Calista clinically d 2-27 09:03:00 (Nava) significant 09:00: Lindquist medication 00 [id number] issue Musculoskel requires Musculoske Resolve 2018-052019-05-22 Calista etal human letal d 2-27 09:25:00 (Nava) assist to 09:00: Lindquist leave home 00 [id number] Musculoskel transfer Musculoske Resolve 2018-052019-05-22 Calista etal assistance letal d 2-27 09:25:00 (Nava) required 09:00: Lindquist 00 [id number] Pain knowledge/s Pain Mgmt Active 2018-05 Gio kill 2-27 Shilpa deficit: pt 13:31: [id number] Safety structural Safety Resolve 2018-052019-05-26 Gio barriers d 2-27 10:25:00 Shilpa present 13:31: [id number] 00 Diagnoses knowledge/s Diagnoses Active 2018-05 Gio kill 2- Shilpa deficit: pt 13:31: [id number] 00 Gait/Locomo gait PT/OT: Active 2018-05 Gio tion deficit Gait/Locom 2-27 Kobziewicz problems otion 13:31: [id number] 00 Social financial BASHIR: Active [facility] resource Social 05-15 [place] deficit Services 11:00: [id number] 00 Social knowledge/s BASHIR: Resolve 2020-0 2019-05-15 [facility] kill Social d 05-15 11:00:00 [place] deficit - Services 11:00: [id number] pt 00 Social knowledge/s BASHIR: Resolve 2019-05-15 [facility] kill Social d 05-15 11:00:00 [place] deficit - Services 11:00: [id number] cg 00 Musculoskel requires Musculoske Resolve 2019-05-26 Amría etal human letal d 05-26 10:25:00 Malnoske [...] mg tablet 2 mg tablet 06-12 [place] HUPMHREY Vital Signs Vital Name Observation Time Observation [...] Comments Whole blood international 2019-04-27 15:00:00 Identifier [id number] Result Unknown normalized ratio (INR) Time 2019-04-27 15:00:00 Test Item Value Reference Range Comments Whole blood international normalized ratio (INR) (test code 0.97 Unknown Unknown F = [id number]) Ordering Physician Unknown
--- OUTSIDE RECORDS SUMMARY | 2019-06-29 15:38 | XMS REPORT ---
:1960 Author Organization [facility] Care Team Providers Name Role Phone Unavailable [...] Calista pain 2-27 (Nava) 09:00: Lindquist 00 [id number] Respiratory dyspnea Respirator Resolve 2018-052019-05-22 Calista present y d 2-27 09:25:00 (Nava) 09:00: Lindquist 00 [id number] Sensory impaired Sensory Resolve 2018-052019-05-26 Calista hearing d 2-27 10:25:00 (Nava) 09:00: Lindquist 00 [id number] Integument skin Integument Resolve 2018-052019-05-15 Calista integrity d 2-27 09:03:00 (Nava) risk 09:00: Lindquist 00 [id number] Elimination urinary Eliminatio Resolve 2018-052019-05-12 Calista incontinenc n d 2-27 11:00:00 (Nava) e 09:00: Lindquist 00 [id number] Neuro depressive Neuro/Emot Resolve 2018-052019-06-19 Calista feelings ion d 2-27 14:05:00 (Nava) present 09:00: Lindquist 00 [id number] Neuro impaired Neuro/Emot Resolve 2018-052019-06-19 Calista decision-ma ion d 2-27 14:05:00 (Nava) jamie 09:00: Lindquist 00 [id number] Neuro confusion Neuro/Emot Resolve 2018-052019-06-19 Calista present ion d 2-27 14:05:00 (Nava) 09:00: Lindquist 00 [id number] Neuro memory Neuro/Emot Active 2018-05 Calista deficit ion 2-27 (Nava) needing 09:00: Lindquist supervision 00 [id number] Activity ADL Activity Resolve 2018-052019-05-26 Calista assistance d 2-27 10:25:00 (Nava) required 09:00: Lindquist [id number] Activity self-care Activity Resolve 2018-052019-05-26 Calista deficit d 2-27 10:25:00 (Nava) 09:00: Lindqiust 00 [id number] Safety risk for Safety Resolve 2018-052019-06-19 Calista hospitaliza d 2-27 14:05:00 (Nava) tion 09:00: Lindquist [id number] Safety can be left Safety Resolve 2018-052019-05-26 Calista alone for d 2-27 10:25:00 (Nava) only short 09:00: Lindquist periods 00 [id number] Safety fall risk Safety Resolve 2018-052019-06-19 Calista factor d 2-27 14:05:00 (Nava) present 09:00: Lindquist [id number] Medication oral med Meds Resolve 2018-052019-05-15 Calista assistance d 2-27 09:03:00 (Nava) required 09:00: Lindquist 00 [id number] Medication potential Meds Resolve 2018-052019-05-15 Calista clinically d 2-27 09:03:00 (Nava) significant 09:00: Lindquist medication 00 [id number] issue Musculoskel requires Musculoske Resolve 2018-052019-05-22 Calista etal human letal d 2-27 09:25:00 (Nava) assist to 09:00: Lindquist leave home 00 [id number] Musculoskel transfer Musculoske Resolve 2018-052019-05-22 Calista etal assistance letal d 2-27 09:25:00 (Nava) required 09:00: Lindquist 00 [id number] Pain knowledge/s Pain Mgmt Active 2018-05 Gio flores 2- Shilpa deficit: pt 13:31: [id number] 00 Safety structural Safety Resolve 2018-052019-05-26 Gio barriers d 2- 10:25:00 Shilpa present 13:31: [id number] 00 Diagnoses knowledge/s Diagnoses Active 2018-05 Gio flores 2 Shilpa deficit: pt 13:31: [id number] 00 Gait/Locomo gait PT/OT: Active 2018-05 Gio tion deficit Gait/Locom 2- Kobziewicz problems otion 13:31: [id number] 00 Social financial BASHIR: Active [facility] resource Social 05-15 [place] deficit Services 11:00: [id number] 00 Social knowledge/s BASHIR: Resolve 2019-05-15 [facility] kill Social d 05-15 11:00:00 [place] deficit - Services 11:00: [id number] pt 00 Social knowledge/s BASHIR: Resolve 2019-05-15 [facility] kill Social d 05-15 11:00:00 [place] deficit - Services 11:00: [id number] cg 00 Musculoskel requires Musculoske Resolve 2019-05-26 [...] Comments Whole blood international 2019-04-27 15:00:00 Identifier [id number] Result Unknown normalized ratio (INR) Time 2019-04-27 15:00:00 Test Item Value Reference Range Comments Whole blood international normalized ratio (INR) (test code 0.97 Unknown Unknown F = [id number]) Ordering Physician Unknown
--- OUTSIDE RECORDS SUMMARY | 2019-06-29 15:38 | XMS REPORT ---
:1960 Author Organization [facility] Care Team Providers Name Role Phone Unavailable [...] Calista pain 2-27 (Nava) 09:00: Lindquist 00 [id number] Respiratory dyspnea Respirator Resolve 2018-052019-05-22 Calista present y d 2-27 09:25:00 (Nava) 09:00: Lindquist 00 [id number] Sensory impaired Sensory Resolve 2018-052019-05-26 Calista hearing d 2-27 10:25:00 (Nava) 09:00: Lindquist 00 [id number] Integument skin Integument Resolve 2018-052019-05-15 Calista integrity d 2-27 09:03:00 (Nava) risk 09:00: Lindquist 00 [id number] Elimination urinary Eliminatio Resolve 2018-052019-05-12 Calista incontinenc n d 2-27 11:00:00 (Nava) e 09:00: Lindquist 00 [id number] Neuro depressive Neuro/Emot Resolve 2018-052019-06-19 Calista feelings ion d 2-27 14:05:00 (Nava) present 09:00: Lindquist 00 [id number] Neuro impaired Neuro/Emot Resolve 2018-052019-06-19 Calista decision-ma ion d 2-27 14:05:00 (Nava) jamie 09:00: Lindquist 00 [id number] Neuro confusion Neuro/Emot Resolve 2018-052019-06-19 Calista present ion d 2-27 14:05:00 (Nava) 09:00: Lindquist 00 [id number] Neuro memory Neuro/Emot Active 2018-05 Calista deficit ion 2-27 (Nava) needing 09:00: Lindquist supervision 00 [id number] Activity ADL Activity Resolve 2018-052019-05-26 Calista assistance d 2-27 10:25:00 (Nava) required 09:00: Lindquist [id number] Activity self-care Activity Resolve 2018-052019-05-26 Calista deficit d 2-27 10:25:00 (Nava) 09:00: Lindquist 00 [id number] Safety risk for Safety Resolve 2018-052019-06-19 Calista hospitaliza d 2-27 14:05:00 (Nava) tion 09:00: Lindquist [id number] Safety can be left Safety Resolve 2018-052019-05-26 Calista alone for d 2-27 10:25:00 (Nava) only short 09:00: Lindquist periods 00 [id number] Safety fall risk Safety Resolve 2018-052019-06-19 Calista factor d 2-27 14:05:00 (Nava) present 09:00: Lindquist [id number] Medication oral med Meds Resolve 2018-052019-05-15 Calista assistance d 2-27 09:03:00 (Nava) required 09:00: Lindquist 00 [id number] Medication potential Meds Resolve 2018-052019-05-15 Calista clinically d 2-27 09:03:00 (Nava) significant 09:00: Lindquist medication 00 [id number] issue Musculoskel requires Musculoske Resolve 2018-052019-05-22 Calista etal human letal d 2-27 09:25:00 (Nava) assist to 09:00: Lindquist leave home 00 [id number] Musculoskel transfer Musculoske Resolve 2018-052019-05-22 Calista etal assistance letal d 2-27 09:25:00 (Nava) required 09:00: Lindquist 00 [id number] Pain knowledge/s Pain Mgmt Active 2018-05 Gio kill 2- Shilpa deficit: pt 13:31: [id number] 00 Safety structural Safety Resolve 2018-052019-05-26 Gio barriers d 2-27 10:25:00 Shilpa present 13:31: [id number] 00 Diagnoses knowledge/s Diagnoses Active 2018-05 Gio kill 07-06 Shilpa deficit: pt 13:31: [id number] 00 Gait/Locomo gait PT/OT: Active 2018-05 Gio tion deficit Gait/Locom 2 Kobziewicz problems otion 13:31: [id number] 00 Social financial BASHIR: Active [facility] resource Social 05-15 [place] deficit Services 11:00: [id number] 00 Social knowledge/s BASHIR: Resolve 2019-05-15 [facility] kill Social d 05-15 11:00:00 [place] deficit - Services 11:00: [id number] pt 00 Social knowledge/s BASHIR: Resolve 2019-05-15 [facility] kill Social d 05-15 11:00:00 [place] deficit - Services 11:00: [id number] cg 00 Musculoskel requires Musculoske Resolve 2019-05-26 [...] Active Bladimir hospitaliza 2-17 Nestor tion 11:15: [id number] 00 Safety fall risk Safety Active Bladimir factor 2-17 Nestor present 11:15: [id number] 00 Bed transfer PT/OT: Bed Active 2020-0 Bladimir Mobility/Tr deficit: Mobility/T 2-17 Nestor wu sit/stand ransfer 11:15: [id number] 00 Bed transfer PT/OT: Bed Active 2020-0 Bladimir Mobility/Tr deficit: Mobility/T 2-17 Nestor wu toilet/comm ransfer 11:15: [id number] ode 00 Bed transfer PT/OT: Bed Active 2019-0 Bladimir Mobility/Tr deficit: Mobility/T 2-17 Nestorremy wu shower/tub ransfer 11:15: [id number] 00 Bed transfer PT/OT: Bed Active 2019-0 Bladimir Mobility/Tr deficit: Mobility/T 2-17 Nestorremy wu vehicle ransfer 11:15: [id number] 00 Bed knowledge/s PT/OT: Bed Active 2019-0 Bladimir Mobility/Tr kill Mobility/T 2-17 Nestor ansfer deficit: pt ransfer 11:15: [id number] 00 Bed bed PT/OT: Bed Active 2019- Bladimir Mobility/Tr mobility Mobility/T 2-17 Nestor ansfer deficit ransfer 11:15: [id number] 00 Gait/Locomo gait PT/OT: Active 2019-0 Bladimir tion assistive Gait/Locom 2-17 Nestor problems device otion 11:15: [id number] present 00 Gait/Locomo knowledge/s PT/OT: Active 2019-0 Bladimir tion kill Gait/Locom 2-17 Nestor problems deficit: pt otion 11:15: [id number] 00 Cardio edema Cardiovasc Active 2019-0 María ular 2-17 Elsa 13:03: RN 00 Neuro impaired Neuro/Emot Active 2019-0 María decision-ma ion 2-17 Franknoske jamie 13:03: RN 00 Medication potential Meds Active 2019-0 María clinically 2-17 Franknoske 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
--- OUTSIDE RECORDS SUMMARY | 2019-06-29 15:38 | XMS REPORT ---
:1960 Author Organization [facility] Care Team Providers Name Role Phone Unavailable [...] Calista pain 2-27 (Nava) 09:00: Lindquist 00 [id number] Respiratory dyspnea Respirator Resolve 2018-052019-05-22 Calista present y d 2-27 09:25:00 (Nava) 09:00: Lindquist 00 [id number] Sensory impaired Sensory Resolve 2018-052019-05-26 Calista hearing d 2-27 10:25:00 (Nava) 09:00: Lindquist 00 [id number] Integument skin Integument Resolve 2018-052019-05-15 Calista integrity d 2-27 09:03:00 (Nava) risk 09:00: Lindquist 00 [id number] Elimination urinary Eliminatio Resolve 2018-052019-05-12 Calista incontinenc n d 2-27 11:00:00 (Nava) e 09:00: Lindquist 00 [id number] Neuro depressive Neuro/Emot Resolve 2018-052019-06-19 Calista feelings ion d 2-27 14:05:00 (Nava) present 09:00: Lindquist 00 [id number] Neuro impaired Neuro/Emot Resolve 2018-052019-06-19 Calista decision-ma ion d 2-27 14:05:00 (Nava) jamie 09:00: Lindquist 00 [id number] Neuro confusion Neuro/Emot Resolve 2018-052019-06-19 Calista present ion d 2-27 14:05:00 (Nava) 09:00: Lindquist 00 [id number] Neuro memory Neuro/Emot Active 2018-05 Calista deficit ion 2-27 (Nava) needing 09:00: Lindquist supervision 00 [id number] Activity ADL Activity Resolve 2018-052019-05-26 Calista assistance d 2-27 10:25:00 (Nava) required 09:00: Lindquist [id number] Activity self-care Activity Resolve 2018-052019-05-26 Calista deficit d 2-27 10:25:00 (Naav) 09:00: Lindquist 00 [id number] Safety risk for Safety Resolve 2018-052019-06-19 Calista hospitaliza d 2-27 14:05:00 (Nava) tion 09:00: Lindquist [id number] Safety can be left Safety Resolve 2018-052019-05-26 Calista alone for d 2-27 10:25:00 (Nava) only short 09:00: Lindquist periods 00 [id number] Safety fall risk Safety Resolve 2018-052019-06-19 Calista factor d 2-27 14:05:00 (Nava) present 09:00: Lindquist [id number] Medication oral med Meds Resolve 2018-052019-05-15 Calista assistance d 2-27 09:03:00 (Nava) required 09:00: Lindquist 00 [id number] Medication potential Meds Resolve 2018-052019-05-15 Calista clinically d 2-27 09:03:00 (Naav) significant 09:00: Lindquist medication 00 [id number] issue Musculoskel requires Musculoske Resolve 2018-052019-05-22 Calista etal human letal d 2-27 09:25:00 (Nava) assist to 09:00: Lindquist leave home 00 [id number] Musculoskel transfer Musculoske Resolve 2018-052019-05-22 Calista etal assistance letal d 2-27 09:25:00 (Nava) required 09:00: Lindquist 00 [id number] Pain knowledge/s Pain Mgmt Active 2018-05 Gio flores 2- Shilpa deficit: pt 13:31: [id number] 00 Safety structural Safety Resolve 2018-052019-05-26 Gio barriers d 2- 10:25:00 Shilpa present 13:31: [id number] 00 Diagnoses knowledge/s Diagnoses Active 2018-05 Gio flores 2 Shilpa deficit: pt 13:31: [id number] 00 Gait/Locomo gait PT/OT: Active 2018-05 Gio tion deficit Gait/Locom 2- Kobziewicz problems otion 13:31: [id number] 00 Social financial BASHIR: Active [facility] resource Social 05-15 [place] deficit Services 11:00: [id number] 00 Social knowledge/s BASHIR: Resolve 2019-05-15 [facility] kill Social d 05-15 11:00:00 [place] deficit - Services 11:00: [id number] pt 00 Social knowledge/s BASHIR: Resolve 2019-05-15 [facility] kill Social d 05-15 11:00:00 [place] deficit - Services 11:00: [id number] cg 00 Musculoskel requires Musculoske Resolve 2019-05-26 [...] Comments Whole blood international 2019-04-27 15:00:00 Identifier [id number] Result Unknown normalized ratio (INR) Time 2019-04-27 15:00:00 Test Item Value Reference Range Comments Whole blood international normalized ratio (INR) (test code 0.97 Unknown Unknown F = [id number]) Ordering Physician Unknown
--- OUTSIDE RECORDS SUMMARY | 2019-06-29 15:38 | XMS REPORT ---
:1960 Author Organization [facility] Care Team Providers Name Role Phone Unavailable [...] Calista pain 2-27 (Nava) 09:00: Lindquist 00 [id number] Respiratory dyspnea Respirator Resolve 2018-052019-05-22 Calista present y d 2-27 09:25:00 (Nava) 09:00: Lindquist 00 [id number] Sensory impaired Sensory Resolve 2018-052019-05-26 Calista hearing d 2-27 10:25:00 (Nava) 09:00: Lindquist 00 [id number] Integument skin Integument Resolve 2018-052019-05-15 Calista integrity d 2-27 09:03:00 (Nava) risk 09:00: Lindquist 00 [id number] Elimination urinary Eliminatio Resolve 2018-052019-05-12 Calista incontinenc n d 2-27 11:00:00 (Nava) e 09:00: Lindquist 00 [id number] Neuro depressive Neuro/Emot Resolve 2018-052019-06-19 Calista feelings ion d 2-27 14:05:00 (Nava) present 09:00: Lindquist 00 [id number] Neuro impaired Neuro/Emot Resolve 2018-052019-06-19 Calista decision-ma ion d 2-27 14:05:00 (Nava) jamie 09:00: Lindquist 00 [id number] Neuro confusion Neuro/Emot Resolve 2018-052019-06-19 Calista present ion d 2-27 14:05:00 (Nava) 09:00: Lindquist 00 [id number] Neuro memory Neuro/Emot Active 2018-05 Calista deficit ion 2-27 (Nava) needing 09:00: Lindquist supervision 00 [id number] Activity ADL Activity Resolve 2018-052019-05-26 Calista assistance d 2-27 10:25:00 (Nava) required 09:00: Lindquist [id number] Activity self-care Activity Resolve 2018-052019-05-26 Calista deficit d 2-27 10:25:00 (Nava) 09:00: Lindquist 00 [id number] Safety risk for Safety Resolve 2018-052019-06-19 Calista hospitaliza d 2-27 14:05:00 (Nava) tion 09:00: Lindquist [id number] Safety can be left Safety Resolve 2018-052019-05-26 Calista alone for d 2-27 10:25:00 (Nava) only short 09:00: Lindquist periods 00 [id number] Safety fall risk Safety Resolve 2018-052019-06-19 Calista factor d 2-27 14:05:00 (Nava) present 09:00: Lindquist [id number] Medication oral med Meds Resolve 2018-052019-05-15 Calista assistance d 2-27 09:03:00 (Nava) required 09:00: Lindquist 00 [id number] Medication potential Meds Resolve 2018-052019-05-15 Calista clinically d 2-27 09:03:00 (Nava) significant 09:00: Lindquist medication 00 [id number] issue Musculoskel requires Musculoske Resolve 2018-052019-05-22 Calista etal human letal d 2-27 09:25:00 (Nava) assist to 09:00: Lindquist leave home 00 [id number] Musculoskel transfer Musculoske Resolve 2018-052019-05-22 Calista etal assistance letal d 2-27 09:25:00 (Nava) required 09:00: Lindquist 00 [id number] Pain knowledge/s Pain Mgmt Active 2018-05 Gio kill 2- Shilpa deficit: pt 13:31: [id number] 00 Safety structural Safety Resolve 2018-052019-05-26 Gio barriers d 2-27 10:25:00 Shilpa present 13:31: [id number] Diagnoses knowledge/s Diagnoses Active 2018-05 Gio kill 07-06 Shilpa deficit: pt 13:31: [id number] 00 Gait/Locomo gait PT/OT: Active 2018-05 Gio tion deficit Gait/Locom 2 Kobziewicz problems otion 13:31: [id number] 00 Social financial BASHIR: Active [facility] resource Social 05-15 [place] deficit Services 11:00: [id number] 00 Social knowledge/s BASHIR: Resolve 2019-05-15 [facility] kill Social d 05-15 11:00:00 [place] deficit - Services 11:00: [id number] pt 00 Social knowledge/s BASHIR: Resolve 2019-05-15 [facility] kill Social d 05-15 11:00:00 [place] deficit - Services 11:00: [id number] cg 00 Musculoskel requires Musculoske Resolve 2019-05-26 [...] Active Bladimir hospitaliza 2-17 Nestor tion 11:15: [id number] 00 Safety fall risk Safety Active Bladimir factor 2-17 Nestor present 11:15: [id number] 00 Bed transfer PT/OT: Bed Active 2020-0 Bladimir Mobility/Tr deficit: Mobility/T 2-17 Nestor wu sit/stand ransfer 11:15: [id number] 00 Bed transfer PT/OT: Bed Active 2020-0 Bladimir Mobility/Tr deficit: Mobility/T 2-17 Nestor wu toilet/comm ransfer 11:15: [id number] ode 00 Bed transfer PT/OT: Bed Active 2019-0 Bladimir Mobility/Tr deficit: Mobility/T 2-17 Nestorremy wu shower/tub ransfer 11:15: [id number] 00 Bed transfer PT/OT: Bed Active 2019-0 Bladimir Mobility/Tr deficit: Mobility/T 2-17 Nestorremy wu vehicle ransfer 11:15: [id number] 00 Bed knowledge/s PT/OT: Bed Active 2019-0 Bladimir Mobility/Tr kill Mobility/T 2-17 Nestor ansfer deficit: pt ransfer 11:15: [id number] 00 Bed bed PT/OT: Bed Active 2019- Bladimir Mobility/Tr mobility Mobility/T 2-17 Nestor ansfer deficit ransfer 11:15: [id number] 00 Gait/Locomo gait PT/OT: Active 2019-0 Bladimir tion assistive Gait/Locom 2-17 Nestor problems device otion 11:15: [id number] present 00 Gait/Locomo knowledge/s PT/OT: Active 2019-0 Bladimir tion kill Gait/Locom 2-17 Nestor problems deficit: pt otion 11:15: [id number] 00 Cardio edema Cardiovasc Active 2019-0 María ular 2-17 Elsa 13:03: RN 00 Neuro impaired Neuro/Emot Active 2019-0 María decision-ma ion 2-17 [place] jamie 13:03: RN 00 Medication potential Meds Active 2019-0 María clinically 2-17 [place] 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
--- OUTSIDE RECORDS SUMMARY | 2019-06-29 15:38 | XMS REPORT ---
:1960 Author Organization [facility] Care Team Providers Name Role Phone Unavailable [...] Calista pain 2-27 (Nava) 09:00: Lindquist 00 [id number] Respiratory dyspnea Respirator Resolve 2018-052019-05-22 Calista present y d 2-27 09:25:00 (Nava) 09:00: Lindquist 00 [id number] Sensory impaired Sensory Resolve 2018-052019-05-26 Calista hearing d 2-27 10:25:00 (Nava) 09:00: Lidnquist 00 [id number] Integument skin Integument Resolve 2018-052019-05-15 Calista integrity d 2-27 09:03:00 (Nava) risk 09:00: Lindquist 00 [id number] Elimination urinary Eliminatio Resolve 2018-052019-05-12 Calista incontinenc n d 2-27 11:00:00 (Nava) e 09:00: Lindquist 00 [id number] Neuro depressive Neuro/Emot Active 2018-05 Calista feelings ion 2-27 (Nava) present 09:00: Lindquist [id number] Neuro impaired Neuro/Emot Active 2018-05 Calista decision-ma ion 2-27 (Nava) jamie 09:00: Lindquist 00 [id number] Neuro confusion Neuro/Emot Active 2018-05 Calista present ion 2-27 (Nava) 09:00: Lindquist 00 [id number] Neuro memory Neuro/Emot Active 2018-05 Calista deficit ion 2-27 (Nava) needing 09:00: Lindquist supervision 00 [id number] Activity ADL Activity Resolve 2018-052019-05-26 Calista assistance d 2-27 10:25:00 (Nava) required 09:00: Lindquist [id number] Activity self-care Activity Resolve 2018-052019-05-26 Calista deficit d 2-27 10:25:00 (Nava) 09:00: Lindquist 00 [id number] Safety risk for Safety Active 2018-05 Calista hospitaliza 2-27 (Nava) tion 09:00: Lindquist 00 [id number] Safety can be left Safety Resolve 2018-052019-05-26 Calista alone for d 2-27 10:25:00 (Nava) only short 09:00: Lindquist periods 00 [id number] Safety fall risk Safety Active 2018-05 Calista factor 2-27 (Nava) present 09:00: Lindquist [id number] Medication oral med Meds Resolve 2018-052019-05-15 Calista assistance d 2-27 09:03:00 (Nava) required 09:00: Lindquist 00 [id number] Medication potential Meds Resolve 2018-052019-05-15 Calista clinically d 2-27 09:03:00 (Nava) significant 09:00: Lindquist medication 00 [id number] issue Musculoskel requires Musculoske Resolve 2018-052019-05-22 Calista etal human letal d 2-27 09:25:00 (Nava) assist to 09:00: Lindquist leave home 00 [id number] Musculoskel transfer Musculoske Resolve 2018-052019-05-22 Calista etal assistance letal d 2-27 09:25:00 (Nava) required 09:00: Lindquist 00 [id number] Pain knowledge/s Pain Mgmt Active 2018-05 Igo kill 2-27 Shilpa deficit: pt 13:31: [id number] 00 Safety structural Safety Resolve 2018-052019-05-26 Gio barriers d 2-27 10:25:00 Shilpa present 13:31: [id number] 00 Diagnoses knowledge/s Diagnoses Active 2018-05 Gio kill 2- Shilpa deficit: pt 13:31: [id number] 00 Gait/Locomo gait PT/OT: Active 2018-05 Gio tion deficit Gait/Locom 2-27 Kobziewicz problems otion 13:31: [id number] 00 Social financial BASHIR: Active [facility] resource Social 05-15 [place] deficit Services 11:00: [id number] 00 Social knowledge/s BASHIR: Resolve 2020-0 2019-05-15 [facility] kill Social d 05-15 11:00:00 [place] deficit - Services 11:00: [id number] pt 00 Social knowledge/s BASHIR: Resolve 2019-05-15 [facility] kill Social d 05-15 11:00:00 [place] deficit - Services 11:00: [id number] cg 00 Musculoskel requires Musculoske Resolve 2019-05-26 [...] Unknown mg capsule mg capsule 05-26 Madison HUPMHREY Verzenio Verzenio Yes Robe Unknown Unknown 150 [...] Comments Whole blood international 2019-04-27 15:00:00 Identifier [id number] Result Unknown normalized ratio (INR) Time 2019-04-27 15:00:00 Test Item Value Reference Range Comments Whole blood international normalized ratio (INR) (test code 0.97 Unknown Unknown F = [id number]) Ordering Physician Unknown
--- OUTSIDE RECORDS SUMMARY | 2019-06-29 15:39 | XMS REPORT ---
:1960 Author Organization [facility] Care Team Providers Name Role Phone Unavailable [...] Calista pain 2-27 (Nava) 09:00: Lindquist 00 [id number] Respiratory dyspnea Respirator Resolve 2018-052019-05-22 Calista present y d 2-27 09:25:00 (Nava) 09:00: Lindquist 00 [id number] Sensory impaired Sensory Resolve 2018-052019-05-26 Calista hearing d 2-27 10:25:00 (Nava) 09:00: Lindquist 00 [id number] Integument skin Integument Resolve 2018-052019-05-15 Calista integrity d 2-27 09:03:00 (Nava) risk 09:00: Lindquist 00 [id number] Elimination urinary Eliminatio Resolve 2018-052019-05-12 Calista incontinenc n d 2-27 11:00:00 (Nava) e 09:00: Lindquist 00 [id number] Neuro depressive Neuro/Emot Active 2018-05 Calista feelings ion 2-27 (Nava) present 09:00: Lindquist [id number] Neuro impaired Neuro/Emot Active 2018-05 Calista decision-ma ion 2-27 (Nava) jamie 09:00: Lindquist 00 [id number] Neuro confusion Neuro/Emot Active 2018-05 Calista present ion 2-27 (Nava) 09:00: Lindquist 00 [id number] Neuro memory Neuro/Emot Active 2018-05 Calista deficit ion 2-27 (Nava) needing 09:00: Lindquist supervision 00 [id number] Activity ADL Activity Resolve 2018-052019-05-26 Calista assistance d 2-27 10:25:00 (Nava) required 09:00: Lindquist [id number] Activity self-care Activity Resolve 2018-052019-05-26 Calista deficit d 2-27 10:25:00 (Nava) 09:00: Lindquist 00 [id number] Safety risk for Safety Active 2018-05 Calista hospitaliza 2-27 (Nava) tion 09:00: Lindquist 00 [id number] Safety can be left Safety Resolve 2018-052019-05-26 Calista alone for d 2-27 10:25:00 (Nava) only short 09:00: Lindquist periods 00 [id number] Safety fall risk Safety Active 2018-05 Calista factor 2-27 (Nava) present 09:00: Lindquist [id number] Medication oral med Meds Resolve 2018-052019-05-15 Calista assistance d 2-27 09:03:00 (Nava) required 09:00: Lindquist 00 [id number] Medication potential Meds Resolve 2018-052019-05-15 Calista clinically d 2-27 09:03:00 (Nava) significant 09:00: Lindquist medication 00 [id number] issue Musculoskel requires Musculoske Resolve 2018-052019-05-22 Calista etal human letal d 2-27 09:25:00 (Nava) assist to 09:00: Lindquist leave home 00 [id number] Musculoskel transfer Musculoske Resolve 2018-052019-05-22 Calista etal assistance letal d 2-27 09:25:00 (Nava) required 09:00: Lindquist 00 [id number] Pain knowledge/s Pain Mgmt Active 2018-05 Gio kill 2-27 Shilpa deficit: pt 13:31: [id number] 00 Safety structural Safety Resolve 2018-052019-05-26 Gio barriers d 2-27 10:25:00 Shilpa present 13:31: [id number] 00 Diagnoses knowledge/s Diagnoses Active 2018-05 Gio kill 2- Shilpa deficit: pt 13:31: [id number] 00 Gait/Locomo gait PT/OT: Active 2018-05 Gio tion deficit Gait/Locom 2-27 Opalziewicz problems otion 13:31: [id number] 00 Social financial BASHIR: Active [facility] resource Social 05-15 [place] deficit Services 11:00: [id number] 00 Social knowledge/s BASHIR: Resolve 20202019-05-15 [facility] kill Social d 05-15 11:00:00 [place] deficit - Services 11:00: [id number] pt 00 Social knowledge/s BASHIR: Resolve 2019-05-15 [facility] kill Social d 05-15 11:00:00 [place] deficit - Services 11:00: [id number] cg 00 Musculoskel requires Musculoske Resolve 2019-05-26 María etal human letal d -17 10:25:00 [place] assist to 10:25: RN leave home 00 Social knowledge/s BASHIR: Active María Services kill Social -17 [place] deficit - Services 10:25: RN pt 00 Safety can be left Safety Active María alone for 1-20 [place] only short 11:25: RN periods 00 Musculoskel requires Musculoske Active María etal human letal 1-20 [place] assist to 11:25: RN leave home 00 Allergies, Adverse Reactions, [...] mg capsule mg capsule 05-26 Madison HUMPHREY Vital Signs Vital Name Observation Time Observation Value Comments SYSTOLIC mm[Hg] 2019-05-29 18:09:58 110 mm[Hg] mm[Hg] Method: Sit SYSTOLIC mm[Hg] 2019-05-11 18:09:40 122 mm[Hg] mm[Hg] Method: Stand DIASTOLIC mm[Hg] 2019-05-29 18:09:58 70 mm[Hg] mm[Hg] Method: Sit DIASTOLIC mm[Hg] 2019-05-11 18:09:40 80 mm[Hg] mm[Hg] Method: Stand PULSE 2019-05-29 18:09:58 72 /min /min RESP RATE 2019-05-29 18:09:58 16 /min /min TEMP 2019-05-29 18:09:58 97.9 [degF] Procedures This patient has no known procedures. Results Test Description Test Time Test Comments Text Results Atomic Results Result Comments Whole blood international 2019-04-27 15:00:00 Identifier [id number] Result Unknown normalized ratio (INR) Time 2019-04-27 15:00:00 Test Item Value Reference Range Comments Whole blood international normalized ratio (INR) (test code 0.97 Unknown Unknown F = [id number]) Ordering Physician Unknown
--- OUTSIDE RECORDS SUMMARY | 2019-06-29 15:39 | XMS REPORT ---
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-05 María obstructive obstructive 2-27 [place] pulmonary pulmonary RN disease, disease, unspecified unspecified Pain frequent Pain Mgmt Active 2018-05 Calista pain 2-27 (Nava) 09:00: Lindquist 00 [id number] Respiratory dyspnea Respirator Resolve 2018-052019-05-22 Calista present y d 2-27 09:25:00 (Nava) 09:00: Lindquist 00 [id number] Sensory impaired Sensory Resolve 2018-052019-05-26 Calista hearing d 2-27 10:25:00 (Nava) 09:00: Lindquist 00 [id number] Integument skin Integument Resolve 2018-052019-05-15 Calista integrity d 2-27 09:03:00 (Nava) risk 09:00: Lindquist 00 [id number] Elimination urinary Eliminatio Resolve 2018-052019-05-12 Calista incontinenc n d 2-27 11:00:00 (Nava) e 09:00: Lindquist 00 [id number] Neuro depressive Neuro/Emot Active 2018-05 Calista feelings ion 2-27 (Nava) present 09:00: Lindquist [id number] Neuro impaired Neuro/Emot Active 2018-05 Calista decision-ma ion 2-27 (Nava) jamie 09:00: Lindquist 00 [id number] Neuro confusion Neuro/Emot Active 2018-05 Calista present ion 2-27 (Nava) 09:00: Lindquist 00 [id number] Neuro memory Neuro/Emot Active 2018-05 Calista deficit ion 2-27 (Nava) needing 09:00: Lindquist supervision 00 [id number] Activity ADL Activity Resolve 2018-052019-05-26 Calista assistance d 2-27 10:25:00 (Nava) required 09:00: Lindquist [id number] Activity self-care Activity Resolve 2018-052019-05-26 Calista deficit d 2-27 10:25:00 (Nava) 09:00: Lindquist 00 [id number] Safety risk for Safety Active 2018-05 Calista hospitaliza 2-27 (Nava) tion 09:00: Lindquist 00 [id number] Safety can be left Safety Resolve 2018-052019-05-26 Calista alone for d 2-27 10:25:00 (Nava) only short 09:00: Lindquist periods 00 [id number] Safety fall risk Safety Active 2018-05 Calista factor 2-27 (Nava) present 09:00: Lindquist [id number] Medication oral med Meds Resolve 2018-052019-05-15 Calista assistance d 2-27 09:03:00 (Nava) required 09:00: Lindquist 00 [id number] Medication potential Meds Resolve 2018-052019-05-15 Calista clinically d 2-27 09:03:00 (Nava) significant 09:00: Lindquist medication 00 [id number] issue Musculoskel requires Musculoske Resolve 2018-052019-05-22 Calista etal human letal d 2-27 09:25:00 (Nava) assist to 09:00: Lindquist leave home 00 [id number] Musculoskel transfer Musculoske Resolve 2018-052019-05-22 Calista etal assistance letal d 2-27 09:25:00 (Nava) required 09:00: Lindquist 00 [id number] Pain knowledge/s Pain Mgmt Active 2018-05 Gio kill 2-27 Shilpa deficit: pt 13:31: [id number] 00 Safety structural Safety Resolve 2018-052019-05-26 Gio barriers d 2-27 10:25:00 Shilpa present 13:31: [id number] 00 Diagnoses knowledge/s Diagnoses Active 2018-05 Gio flores 2 Shilpa deficit: pt 13:31: [id number] 00 Gait/Locomo gait PT/OT: Active 2018-05 Gio tion deficit Gait/Locom 07-06 Joannaicz problems otion 13:31: [id number] 00 Social financial BASHIR: Active [facility] resource Social 05-15 [place] deficit Services 11:00: [id number] 00 Social knowledge/s BASHIR: Resolve 2019-05-15 [facility] kill Social d 05-15 11:00:00 [place] deficit - Services 11:00: [id number] pt 00 Social knowledge/s BASHIR: Resolve 2019-05-15 [facility] kill Social d 05-15 11:00:00 [place] deficit - Services 11:00: [id number] cg 00 Musculoskel requires Musculoske Resolve 2019-05-26 [...] Resolve 2019-06-01 María etal human letal d - 14:12:00 [place] assist to 11:25: RN leave [...] Observation Time Observation Value Comments SYSTOLIC mm[Hg] 2019-06-01 18:10:01 112 mm[Hg] mm[Hg] Method: Sit SYSTOLIC mm[Hg] 2019-05-11 18:09:40 122 mm[Hg] mm[Hg] Method: Stand DIASTOLIC mm[Hg] 2019-06-01 18:10:01 64 mm[Hg] mm[Hg] Method: Sit DIASTOLIC mm[Hg] 2019-05-11 18:09:40 80 mm[Hg] mm[Hg] Method: Stand PULSE 2019-06-01 18:10:01 66 /min /min RESP RATE 2019-06-01 18:10:01 16 /min /min TEMP 2019-06-01 18:10:01 97.8 [degF] Procedures This patient has no known procedures. Results Test Description Test Time Test Comments Text Results Atomic Results Result Comments Whole blood international 2019-04-27 15:00:00 Identifier [id number] Result Unknown normalized ratio (INR) Time 2019-04-27 15:00:00 Test Item Value Reference Range Comments Whole blood international normalized ratio (INR) (test code 0.97 Unknown Unknown F = [id number]) Ordering Physician Unknown
--- OUTSIDE RECORDS SUMMARY | 2019-06-29 15:39 | XMS REPORT ---
:1960 Author Organization [facility] Care Team Providers Name Role Phone Unavailable [...] Calista pain 2-27 (Nava) 09:00: Lindquist 00 [id number] Respiratory dyspnea Respirator Resolve 2018-052019-05-22 Calista present y d 2-27 09:25:00 (Nava) 09:00: Lindquist 00 [id number] Sensory impaired Sensory Resolve 2018-052019-05-26 Calista hearing d 2-27 10:25:00 (Nava) 09:00: Lindquist 00 [id number] Integument skin Integument Resolve 2018-052019-05-15 Calista integrity d 2-27 09:03:00 (Nava) risk 09:00: Lindquist 00 [id number] Elimination urinary Eliminatio Resolve 2018-052019-05-12 Calista incontinenc n d 2-27 11:00:00 (Nava) e 09:00: Lindquist 00 [id number] Neuro depressive Neuro/Emot Active 2018-05 Calista feelings ion 2-27 (Nava) present 09:00: Lindquist [id number] Neuro impaired Neuro/Emot Active 2018-05 Calista decision-ma ion 2-27 (Nava) jamie 09:00: Lindquist 00 [id number] Neuro confusion Neuro/Emot Active 2018-05 Calista present ion 2-27 (Nava) 09:00: Lindquist 00 [id number] Neuro memory Neuro/Emot Active 2018-05 Calista deficit ion 2-27 (Nava) needing 09:00: Lindquist supervision 00 [id number] Activity ADL Activity Resolve 2018-052019-05-26 Calista assistance d 2-27 10:25:00 (Nava) required 09:00: Lindquist [id number] Activity self-care Activity Resolve 2018-052019-05-26 Calista deficit d 2-27 10:25:00 (Nava) 09:00: Lindquist 00 [id number] Safety risk for Safety Active 2018-05 Calista hospitaliza 2-27 (Nava) tion 09:00: Lindquist 00 [id number] Safety can be left Safety Resolve 2018-052019-05-26 Calista alone for d 2-27 10:25:00 (Nava) only short 09:00: Lindquist periods 00 [id number] Safety fall risk Safety Active 2018-05 Calista factor 2-27 (Nava) present 09:00: Lindquist [id number] Medication oral med Meds Resolve 2018-052019-05-15 Calista assistance d 2-27 09:03:00 (Nava) required 09:00: Lindquist 00 [id number] Medication potential Meds Resolve 2018-052019-05-15 Calista clinically d 2-27 09:03:00 (Nava) significant 09:00: Lindquist medication 00 [id number] issue Musculoskel requires Musculoske Resolve 2018-052019-05-22 Calista etal human letal d 2-27 09:25:00 (Nava) assist to 09:00: Lindquist leave home 00 [id number] Musculoskel transfer Musculoske Resolve 2018-052019-05-22 Calista etal assistance letal d 2-27 09:25:00 (Nava) required 09:00: Lindquist 00 [id number] Pain knowledge/s Pain Mgmt Active 2018-05 Gio kill 2-27 Shilpa deficit: pt 13:31: [id number] 00 Safety structural Safety Resolve 2018-052019-05-26 Gio barriers d 2-27 10:25:00 Shilpa present 13:31: [id number] 00 Diagnoses knowledge/s Diagnoses Active 2018-05 Gio flores 2 Shilpa deficit: pt 13:31: [id number] 00 Gait/Locomo gait PT/OT: Active 2018-05 Gio tion deficit Gait/Locom 07-06 Joannaicz problems otion 13:31: [id number] 00 Social financial BASHIR: Active [facility] resource Social 05-15 [place] deficit Services 11:00: [id number] 00 Social knowledge/s BASHIR: Resolve 2019-05-15 [facility] kill Social d 05-15 11:00:00 [place] deficit - Services 11:00: [id number] pt 00 Social knowledge/s BASHIR: Resolve 2019-05-15 [facility] kill Social d 05-15 11:00:00 [place] deficit - Services 11:00: [id number] cg 00 Musculoskel requires Musculoske Resolve 2019-05-26 [...] Comments Whole blood international 2019-04-27 15:00:00 Identifier [id number] Result Unknown normalized ratio (INR) Time 2019-04-27 15:00:00 Test Item Value Reference Range Comments Whole blood international normalized ratio (INR) (test code 0.97 Unknown Unknown F = [id number]) Ordering Physician Unknown
--- OUTSIDE RECORDS SUMMARY | 2019-06-29 15:39 | XMS REPORT ---
:1960 Author Organization [facility] Care Team Providers Name Role Phone Unavailable [...] Calista pain 2-27 (Nava) 09:00: Lindquist 00 [id number] Respiratory dyspnea Respirator Resolve 2018-052019-05-22 Calista present y d 2-27 09:25:00 (Nava) 09:00: Lindquist 00 [id number] Sensory impaired Sensory Resolve 2018-052019-05-26 Calista hearing d 2-27 10:25:00 (Nava) 09:00: Lindquist 00 [id number] Integument skin Integument Resolve 2018-052019-05-15 Calista integrity d 2-27 09:03:00 (Nava) risk 09:00: Lindquist 00 [id number] Elimination urinary Eliminatio Resolve 2018-052019-05-12 Calista incontinenc n d 2-27 11:00:00 (Nava) e 09:00: Lindquist 00 [id number] Neuro depressive Neuro/Emot Active 2018-05 Calista feelings ion 2-27 (Nava) present 09:00: Lindquist [id number] Neuro impaired Neuro/Emot Active 2018-05 Calista decision-ma ion 2-27 (Nava) jamie 09:00: Lindquist 00 [id number] Neuro confusion Neuro/Emot Active 2018-05 Calista present ion 2-27 (Nava) 09:00: Lindquist 00 [id number] Neuro memory Neuro/Emot Active 2018-05 Calista deficit ion 2-27 (Nava) needing 09:00: Lindquist supervision 00 [id number] Activity ADL Activity Resolve 2018-052019-05-26 Calista assistance d 2-27 10:25:00 (Nava) required 09:00: Lindquist [id number] Activity self-care Activity Resolve 2018-052019-05-26 Calista deficit d 2-27 10:25:00 (Nava) 09:00: Lindquist 00 [id number] Safety risk for Safety Active 2018-05 Calista hospitaliza 2-27 (Nava) tion 09:00: Lindquist 00 [id number] Safety can be left Safety Resolve 2018-052019-05-26 Calista alone for d 2-27 10:25:00 (Nava) only short 09:00: Lindquist periods 00 [id number] Safety fall risk Safety Active 2018-05 Calista factor 2-27 (Nava) present 09:00: Lindquist [id number] Medication oral med Meds Resolve 2018-052019-05-15 Calista assistance d 2-27 09:03:00 (Nava) required 09:00: Lindquist 00 [id number] Medication potential Meds Resolve 2018-052019-05-15 Calista clinically d 2-27 09:03:00 (Nava) significant 09:00: Lindquist medication 00 [id number] issue Musculoskel requires Musculoske Resolve 2018-052019-05-22 Calista etal human letal d 2-27 09:25:00 (Nava) assist to 09:00: Lindquist leave home 00 [id number] Musculoskel transfer Musculoske Resolve 2018-052019-05-22 Calista etal assistance letal d 2-27 09:25:00 (Nava) required 09:00: Lindquist 00 [id number] Pain knowledge/s Pain Mgmt Active 2018-05 Gio kill 2-27 Shilpa deficit: pt 13:31: [id number] 00 Safety structural Safety Resolve 2018-052019-05-26 Gio barriers d 2-27 10:25:00 Shilpa present 13:31: [id number] 00 Diagnoses knowledge/s Diagnoses Active 2018-05 Gio flores 2 Shilpa deficit: pt 13:31: [id number] 00 Gait/Locomo gait PT/OT: Active 2018-05 Gio tion deficit Gait/Locom 07-06 Joannaicz problems otion 13:31: [id number] 00 Social financial BASHIR: Active [facility] resource Social 05-15 [place] deficit Services 11:00: [id number] 00 Social knowledge/s BASHIR: Resolve 2019-05-15 [facility] kill Social d 05-15 11:00:00 [place] deficit - Services 11:00: [id number] pt 00 Social knowledge/s BASHIR: Resolve 2019-05-15 [facility] kill Social d 05-15 11:00:00 [place] deficit - Services 11:00: [id number] cg 00 Musculoskel requires Musculoske Resolve 2019-05-26 [...] Comments Whole blood international 2019-04-27 15:00:00 Identifier [id number] Result Unknown normalized ratio (INR) Time 2019-04-27 15:00:00 Test Item Value Reference Range Comments Whole blood international normalized ratio (INR) (test code 0.97 Unknown Unknown F = [id number]) Ordering Physician Unknown
--- OUTSIDE RECORDS SUMMARY | 2019-06-29 15:39 | XMS REPORT ---
:1960 Author Organization [facility] Care Team Providers Name Role Phone Unavailable [...] Calista pain 2-27 (Nava) 09:00: Lindquist 00 [id number] Respiratory dyspnea Respirator Resolve 2018-052019-05-22 Calista present y d 2-27 09:25:00 (Nava) 09:00: Lindquist 00 [id number] Sensory impaired Sensory Resolve 2018-052019-05-26 Calista hearing d 2-27 10:25:00 (Nava) 09:00: Lindquist 00 [id number] Integument skin Integument Resolve 2018-052019-05-15 Calista integrity d 2-27 09:03:00 (Nava) risk 09:00: Lindquist 00 [id number] Elimination urinary Eliminatio Resolve 2018-052019-05-12 Calista incontinenc n d 2-27 11:00:00 (Nava) e 09:00: Lindquist 00 [id number] Neuro depressive Neuro/Emot Active 2018-05 Calista feelings ion 2-27 (Nava) present 09:00: Lindquist [id number] Neuro impaired Neuro/Emot Active 2018-05 Calista decision-ma ion 2-27 (Nava) jamie 09:00: Lindquist 00 [id number] Neuro confusion Neuro/Emot Active 2018-05 Calista present ion 2-27 (Nava) 09:00: Lindquist 00 [id number] Neuro memory Neuro/Emot Active 2018-05 Calista deficit ion 2-27 (Nava) needing 09:00: Lindquist supervision 00 [id number] Activity ADL Activity Resolve 2018-052019-05-26 Calista assistance d 2-27 10:25:00 (Nava) required 09:00: Lindquist [id number] Activity self-care Activity Resolve 2018-052019-05-26 Calista deficit d 2-27 10:25:00 (Nava) 09:00: Lindquist 00 [id number] Safety risk for Safety Active 2018-05 Calista hospitaliza 2-27 (Nava) tion 09:00: Lindquist 00 [id number] Safety can be left Safety Resolve 2018-052019-05-26 Calista alone for d 2-27 10:25:00 (Nava) only short 09:00: Lindquist periods 00 [id number] Safety fall risk Safety Active 2018-05 Calista factor 2-27 (Nava) present 09:00: Lindquist [id number] Medication oral med Meds Resolve 2018-052019-05-15 Calista assistance d 2-27 09:03:00 (Nava) required 09:00: Lindquist 00 [id number] Medication potential Meds Resolve 2018-052019-05-15 Calista clinically d 2-27 09:03:00 (Nava) significant 09:00: Lindquist medication 00 [id number] issue Musculoskel requires Musculoske Resolve 2018-052019-05-22 Calista etal human letal d 2-27 09:25:00 (Nava) assist to 09:00: Lindquist leave home 00 [id number] Musculoskel transfer Musculoske Resolve 2018-052019-05-22 Calista etal assistance letal d 2-27 09:25:00 (Nava) required 09:00: Lindquist 00 [id number] Pain knowledge/s Pain Mgmt Active 2018-05 Gio kill 2-27 Shilpa deficit: pt 13:31: [id number] Safety structural Safety Resolve 2018-052019-05-26 Gio barriers d 2-27 10:25:00 Shilpa present 13:31: [id number] Diagnoses knowledge/s Diagnoses Active 2018-05 Gio kill 2- Shilpa deficit: pt 13:31: [id number] 00 Gait/Locomo gait PT/OT: Active 2018-05 Gio tion deficit Gait/Locom 2-27 Opalziewicz problems otion 13:31: [id number] 00 Social financial BASHIR: Active [facility] resource Social 05-15 [place] deficit Services 11:00: [id number] 00 Social knowledge/s BASHIR: Resolve 20202019-05-15 [facility] kill Social d 05-15 11:00:00 [place] deficit - Services 11:00: [id number] pt 00 Social knowledge/s BASHIR: Resolve 2019-05-15 [facility] kill Social d 05-15 11:00:00 [place] deficit - Services 11:00: [id number] cg 00 Musculoskel requires Musculoske Resolve 2019-05-26 [...] Comments Whole blood international 2019-04-27 15:00:00 Identifier [id number] Result Unknown normalized ratio (INR) Time 2019-04-27 15:00:00 Test Item Value Reference Range Comments Whole blood international normalized ratio (INR) (test code 0.97 Unknown Unknown F = [id number]) Ordering Physician Unknown
--- OUTSIDE RECORDS SUMMARY | 2019-06-29 15:39 | XMS REPORT ---
:1960 Author Organization [facility] Care Team Providers Name Role Phone Unavailable [...] Calista pain 2-27 (Nava) 09:00: Lindquist 00 [id number] Respiratory dyspnea Respirator Resolve 2018-052019-05-22 Calista present y d 2-27 09:25:00 (Nava) 09:00: Lindquist 00 [id number] Sensory impaired Sensory Resolve 2018-052019-05-26 Calista hearing d 2-27 10:25:00 (Nava) 09:00: Lindquist 00 [id number] Integument skin Integument Resolve 2018-052019-05-15 Calista integrity d 2-27 09:03:00 (Nava) risk 09:00: Lindquist 00 [id number] Elimination urinary Eliminatio Resolve 2018-052019-05-12 Calista incontinenc n d 2-27 11:00:00 (Nava) e 09:00: Lindquist 00 [id number] Neuro depressive Neuro/Emot Active 2018-05 Calista feelings ion 2-27 (Nava) present 09:00: Lindquist [id number] Neuro impaired Neuro/Emot Active 2018-05 Calista decision-ma ion 2-27 (Nava) jamie 09:00: Lindquist 00 [id number] Neuro confusion Neuro/Emot Active 2018-05 Calista present ion 2-27 (Nava) 09:00: Lindquist 00 [id number] Neuro memory Neuro/Emot Active 2018-05 Calista deficit ion 2-27 (Nava) needing 09:00: Lindquist supervision 00 [id number] Activity ADL Activity Resolve 2018-052019-05-26 Calista assistance d 2-27 10:25:00 (Nava) required 09:00: Lindquist [id number] Activity self-care Activity Resolve 2018-052019-05-26 Calista deficit d 2-27 10:25:00 (Nava) 09:00: Lindquist 00 [id number] Safety risk for Safety Active 2018-05 Calista hospitaliza 2-27 (Nava) tion 09:00: Lindquist 00 [id number] Safety can be left Safety Resolve 2018-052019-05-26 Calista alone for d 2-27 10:25:00 (Nava) only short 09:00: Lindquist periods 00 [id number] Safety fall risk Safety Active 2018-05 Calista factor 2-27 (Nava) present 09:00: Lindquist [id number] Medication oral med Meds Resolve 2018-052019-05-15 Calista assistance d 2-27 09:03:00 (Nava) required 09:00: Lindquist 00 [id number] Medication potential Meds Resolve 2018-052019-05-15 Calista clinically d 2-27 09:03:00 (Nava) significant 09:00: Lindquist medication 00 [id number] issue Musculoskel requires Musculoske Resolve 2018-052019-05-22 Calista etal human letal d 2-27 09:25:00 (Nava) assist to 09:00: Lindquist leave home 00 [id number] Musculoskel transfer Musculoske Resolve 2018-052019-05-22 Calista etal assistance letal d 2-27 09:25:00 (Nava) required 09:00: Lindquist 00 [id number] Pain knowledge/s Pain Mgmt Active 2018-05 Gio kill 2-27 Shilpa deficit: pt 13:31: [id number] 00 Safety structural Safety Resolve 2018-052019-05-26 Gio barriers d 2-27 10:25:00 Shilpa present 13:31: [id number] 00 Diagnoses knowledge/s Diagnoses Active 2018-05 Igo kill 2- Shilpa deficit: pt 13:31: [id number] Gait/Locomo gait PT/OT: Active 2018-05 Gio tion deficit Gait/Locom 2-27 Opalziewicz problems otion 13:31: [id number] 00 Social financial BASHIR: Active [facility] resource Social 05-15 [place] deficit Services 11:00: [id number] 00 Social knowledge/s BASHIR: Resolve 20202019-05-15 [facility] kill Social d 05-15 11:00:00 [place] deficit - Services 11:00: [id number] pt 00 Social knowledge/s BASHIR: Resolve 2019-05-15 [facility] kill Social d 05-15 11:00:00 [place] deficit - Services 11:00: [id number] cg 00 Musculoskel requires Musculoske Resolve 2019-05-26 [...] Comments Whole blood international 2019-04-27 15:00:00 Identifier [id number] Result Unknown normalized ratio (INR) Time 2019-04-27 15:00:00 Test Item Value Reference Range Comments Whole blood international normalized ratio (INR) (test code 0.97 Unknown Unknown F = [id number]) Ordering Physician Unknown
--- OUTSIDE RECORDS SUMMARY | 2019-06-29 15:39 | XMS REPORT ---
:1960 Author Organization [facility] Care Team Providers Name Role Phone Unavailable [...] Calista pain 2-27 (Nava) 09:00: Lindquist 00 [id number] Respiratory dyspnea Respirator Resolve 2018-052019-05-22 Calista present y d 2-27 09:25:00 (Nava) 09:00: Lindquist 00 [id number] Sensory impaired Sensory Resolve 2018-052019-05-26 Calista hearing d 2-27 10:25:00 (Nava) 09:00: Lindquist 00 [id number] Integument skin Integument Resolve 2018-052019-05-15 Calista integrity d 2-27 09:03:00 (Nava) risk 09:00: Lindquist 00 [id number] Elimination urinary Eliminatio Resolve 2018-052019-05-12 Calista incontinenc n d 2-27 11:00:00 (Nava) e 09:00: Lindquist 00 [id number] Neuro depressive Neuro/Emot Active 2018-05 Calista feelings ion 2-27 (Nava) present 09:00: Lindquist [id number] Neuro impaired Neuro/Emot Active 2018-05 Calista decision-ma ion 2-27 (Nava) jamie 09:00: Lindquist 00 [id number] Neuro confusion Neuro/Emot Active 2018-05 Calista present ion 2-27 (Nava) 09:00: Lindquist 00 [id number] Neuro memory Neuro/Emot Active 2018-05 Calista deficit ion 2-27 (Nava) needing 09:00: Lindquist supervision 00 [id number] Activity ADL Activity Resolve 2018-052019-05-26 Calista assistance d 2-27 10:25:00 (Nava) required 09:00: Lindquist [id number] Activity self-care Activity Resolve 2018-052019-05-26 Calista deficit d 2-27 10:25:00 (Nava) 09:00: Lindquist 00 [id number] Safety risk for Safety Active 2018-05 Calista hospitaliza 2-27 (Nava) tion 09:00: Lindquist 00 [id number] Safety can be left Safety Resolve 2018-052019-05-26 Calista alone for d 2-27 10:25:00 (Nava) only short 09:00: Lindquist periods 00 [id number] Safety fall risk Safety Active 2018-05 Calista factor 2-27 (Nava) present 09:00: Lindquist [id number] Medication oral med Meds Resolve 2018-052019-05-15 Calista assistance d 2-27 09:03:00 (Nava) required 09:00: Lindquist 00 [id number] Medication potential Meds Resolve 2018-052019-05-15 Calista clinically d 2-27 09:03:00 (Nava) significant 09:00: Lindquist medication 00 [id number] issue Musculoskel requires Musculoske Resolve 2018-052019-05-22 Calista etal human letal d 2-27 09:25:00 (Nava) assist to 09:00: Lindquist leave home 00 [id number] Musculoskel transfer Musculoske Resolve 2018-052019-05-22 Calista etal assistance letal d 2-27 09:25:00 (Nava) required 09:00: Lindquist 00 [id number] Pain knowledge/s Pain Mgmt Active 2018-05 Gio kill 2-27 Shilpa deficit: pt 13:31: [id number] 00 Safety structural Safety Resolve 2018-052019-05-26 Gio barriers d 2-27 10:25:00 Shilpa present 13:31: [id number] 00 Diagnoses knowledge/s Diagnoses Active 2018-05 Gio flores 07-06 Opalibansofía deficit: pt 13:31: [id number] 00 Gait/Locomo gait PT/OT: Active 2018-05 Gio tion deficit Gait/Locom 07-06 Opalibandylanicz problems otion 13:31: [id number] 00 Social financial BASHIR: Active [facility] resource Social 05-15 [place] deficit Services 11:00: [id number] 00 Social knowledge/s BASHIR: Resolve 2019-05-15 [facility] kill Social d 05-15 11:00:00 [place] deficit - Services 11:00: [id number] pt 00 Social knowledge/s BASHIR: Resolve 2019-05-15 [facility] kill Social d 05-15 11:00:00 [place] deficit - Services 11:00: [id number] cg 00 Musculoskel requires Musculoske Resolve 2019-05-26 María etal human letal d 05-26 10:25:00 [place] assist to 10:25: RN leave home 00 Social knowledge/s BASHIR: Active [facility] kill Social 05-26 [place] deficit - Services 10:25: RN pt 00 Allergies, Adverse Reactions, Alerts Allergy Allergy [...] Robe Unknown Unknown Cap* Cap* 07-06 [place] HMUPHREY citalopram citalopram 2018-05 Yes Robe Unknown Unknown [...] Robe Unknown Unknown mg tablet mg tablet - [place] HUMPHREY morphine ER morphine ER 2018-05 Yes Robe Unknown Unknown 15 mg 15 mg 07-06 [place] HUMPHREY tablet,exte tablet,exte nded nded release release omeprazole omeprazole Yes Robe Unknown Unknown 20 mg 20 mg - [place] HUMPHREY capsule,del capsule,del ayed ayed release [...] Comments Whole blood international 2019-04-27 15:00:00 Identifier [id number] Result Unknown normalized ratio (INR) Time 2019-04-27 15:00:00 Test Item Value Reference Range Comments Whole blood international normalized ratio (INR) (test code 0.97 Unknown Unknown F = [id number]) Ordering Physician Unknown
--- OUTSIDE RECORDS SUMMARY | 2019-06-29 15:39 | XMS REPORT ---
:1960 Author Organization [facility] Care Team Providers Name Role Phone Unavailable [...] Calista pain 2-27 (Nava) 09:00: Lindquist 00 [id number] Respiratory dyspnea Respirator Resolve 2018-052019-05-22 Calista present y d 2-27 09:25:00 (Nava) 09:00: Lindquist 00 [id number] Sensory impaired Sensory Resolve 2018-052019-05-26 Calista hearing d 2-27 10:25:00 (Nava) 09:00: Lindquist 00 [id number] Integument skin Integument Resolve 2018-052019-05-15 Calista integrity d 2-27 09:03:00 (Nava) risk 09:00: Lindquist 00 [id number] Elimination urinary Eliminatio Resolve 2018-052019-05-12 Calista incontinenc n d 2-27 11:00:00 (Nava) e 09:00: Lindquist 00 [id number] Neuro depressive Neuro/Emot Active 2018-05 Calista feelings ion 2-27 (Nava) present 09:00: Lindquist [id number] Neuro impaired Neuro/Emot Active 2018-05 Calista decision-ma ion 2-27 (Nava) jamie 09:00: Lindquist 00 [id number] Neuro confusion Neuro/Emot Active 2018-05 Calista present ion 2-27 (Nava) 09:00: Lindquist 00 [id number] Neuro memory Neuro/Emot Active 2018-05 Calista deficit ion 2-27 (Nava) needing 09:00: Lindquist supervision 00 [id number] Activity ADL Activity Resolve 2018-052019-05-26 Calista assistance d 2-27 10:25:00 (Nava) required 09:00: Lindquist [id number] Activity self-care Activity Resolve 2018-052019-05-26 Calista deficit d 2-27 10:25:00 (Nava) 09:00: Lindquist 00 [id number] Safety risk for Safety Active 2018-05 Calista hospitaliza 2-27 (Nava) tion 09:00: Linduqist 00 [id number] Safety can be left Safety Resolve 2018-052019-05-26 Calista alone for d 2-27 10:25:00 (Nava) only short 09:00: Lindquist periods 00 [id number] Safety fall risk Safety Active 2018-05 Calista factor 2-27 (Nava) present 09:00: Lindquist [id number] Medication oral med Meds Resolve 2018-052019-05-15 Calista assistance d 2-27 09:03:00 (Nava) required 09:00: Lindquist 00 [id number] Medication potential Meds Resolve 2018-052019-05-15 Calista clinically d 2-27 09:03:00 (Nava) significant 09:00: Lindquist medication 00 [id number] issue Musculoskel requires Musculoske Resolve 2018-052019-05-22 Calista etal human letal d 2-27 09:25:00 (Nava) assist to 09:00: Lindquist leave home 00 [id number] Musculoskel transfer Musculoske Resolve 2018-052019-05-22 Calista etal assistance letal d 2-27 09:25:00 (Nava) required 09:00: Lindquist 00 [id number] Pain knowledge/s Pain Mgmt Active 2018-05 Gio kill 2-27 Shilpa deficit: pt 13:31: [id number] 00 Safety structural Safety Resolve 2018-052019-05-26 Gio barriers d 2-27 10:25:00 Shilpa present 13:31: [id number] 00 Diagnoses knowledge/s Diagnoses Active 2018-05 Gio lfores 07-06 Opalibansofía deficit: pt 13:31: [id number] 00 Gait/Locomo gait PT/OT: Active 2018-05 Gio tion deficit Gait/Locom 07-06 Opalibandylanicz problems otion 13:31: [id number] 00 Social financial BASHIR: Active [facility] resource Social 05-15 [place] deficit Services 11:00: [id number] 00 Social knowledge/s BASHIR: Resolve 2019-05-15 [facility] kill Social d 05-15 11:00:00 [place] deficit - Services 11:00: [id number] pt 00 Social knowledge/s BASHIR: Resolve 2019-05-15 [facility] kill Social d 05-15 11:00:00 [place] deficit - Services 11:00: [id number] cg 00 Musculoskel requires Musculoske Resolve 2019-05-26 [...] Observation Time Observation Value Comments SYSTOLIC mm[Hg] 2019-05-26 18:09:55 112 mm[Hg] mm[Hg] Method: Sit SYSTOLIC mm[Hg] 2019-05-11 18:09:40 122 mm[Hg] mm[Hg] Method: Stand DIASTOLIC mm[Hg] 2019-05-26 18:09:55 68 mm[Hg] mm[Hg] Method: Sit DIASTOLIC mm[Hg] 2019-05-11 18:09:40 80 mm[Hg] mm[Hg] Method: Stand PULSE 2019-05-26 18:09:55 66 /min /min RESP RATE 2019-05-26 18:09:55 16 /min /min TEMP 2019-05-26 18:09:55 97.7 [degF] Procedures This patient has no known procedures. Results Test Description Test Time Test Comments Text Results Atomic Results Result Comments Whole blood international 2019-04-27 15:00:00 Identifier [id number] Result Unknown normalized ratio (INR) Time 2019-04-27 15:00:00 Test Item Value Reference Range Comments Whole blood international normalized ratio (INR) (test code 0.97 Unknown Unknown F = [id number]) Ordering Physician Unknown
[2019-06-29] MEDS: KCL 20 MEQ/100 ML IVPREMIX* 20 MEQ/100 ML BAG IV SCH ×2 (15:49→18:49)
[2019-06-29] MEDS ORDERED: Vancomycin(*) 1,000 MG VIAL IVPB SCH (16:00)
[2019-06-29] MEDS ORDERED: Vancomycin(*) 2,000 MG in NS 0.9% 500 ML* 500 ML IVPB ONE (16:00)
[2019-06-29 16:02] LABS: ABS Lymphocytes 0.4 10^3/ul (1.0-4.8); Hematocrit 33 % (35-47); Hemoglobin 11.5 g/dL (12.0-16.0); Lymphocyte % 84.5 %; Mean Corpuscular HGB Conc 35 g/dL (31-36); Mean Corpuscular Hemoglobin 33 pg (27-31); Mean Corpuscular Volume 94 fL (80-97); Mean Platelet Volume 6.6 fL (7.4-10.4); Platelet Count 196 10^3/uL (150-450); Red Blood Count 3.52 10^6 /uL (3.70-4.87); Red Cell Distribution Width 17 % (10-15); White Blood Count 0.5 10^3/uL (3.5-10.8)
--- NOTE | 2019-06-29 16:33 | CONS ---
TWO ADDENDUMS ARE NOW INCLUDED ON THIS REPORT CC: Dr. Seth * NEUROLOGICAL CONSULTATION: DATE OF CONSULT: 06/29/19 PATIENT OF: Dr. Eng, Dr. Nagel, and Dr. Seth. HISTORY OF PRESENT ILLNESS: This is a 58-year-old woman who was with her today at 1 o'clock and became acutely confused without any apparent weakness. There were speech problems; but, according to the who I spoke to over the phone, there was just global confusion and so it was unclear if there was predominantly the speech issue or just global confusion issue. He notes in the past couple weeks' time she has had shaking, which he says looks like "epileptic seizures." He did not notice any seizures this afternoon and was in the room with her, but did not have eyes on her at all times. She was not speaking when she came in initially according to staff, but then began speaking and cooperating more than she had. She has also been on steroids as per the medicines below. She is incapable of giving a recent history at this point. When I try to get a sense from her, she knew her name and thought she was 38 and can follow commands and could perseverate. When I asked her if she wanted to have procedures that would cause pain, she said no, but again she had limited mental capabilities. The will be coming in tomorrow, but over the phone, he said his understanding is that she wanted things done, but in his words nothing too aggressive or heroic, but is unclear exactly what that means. When she presented in April, she was having bad headaches like somebody hit her in the head with a sledge-hammer and neck spasms with blurry vision and felt like her left side was weaker. PAST MEDICAL HISTORY: Significant for metastatic breast cancer, followed by Dr. Madison Nagel, with mets to bone, lung, as well as recently diagnosed with leptomeningeal spread, with symptoms of headache and near syncope, having a spinal tap during a recent hospitalization. I heard from the oncologist that this was leptomeningeal spread and that she received XRT last about 5 weeks ago. She had seen Dr. Nagel about [address] Nagel is on vacation currently and the oncologist said that her prognosis would be expected to be limited on the order of months. PAST SURGICAL HISTORY: She has had reconstructive surgery of the right breast after right mastectomy. There are no other surgeries listed. MEDICATIONS: Current meds at home include: 1. Celexa 40 mg daily. 2. Colace 200 mg b.i.d. 3. Lasix 20 mg in the morning as needed. 4. Myrbetriq 50 mg daily. 5. MS Contin 15 mg b.i.d. 6. Zofran 4 mg q.8 hours. 7. Compazine 10 mg p.r.n. 8. Dexamethasone 6 mg b.i.d. 9. Oxycodone 5 mg p.r.n. She has had the flu shot. She has had radiation therapy. ALLERGIES: Include ASPIRIN and BEE PRO VENOM. FAMILY HISTORY: Apparent unremarkable. I could not get that from her. SOCIAL HISTORY: She quit smoking 10 years ago and smoked 1 pack a day for 30 years. No history of drinking or other drugs. REVIEW OF SYSTEMS: There have been no recent fevers or infectious illness per her . PHYSICAL EXAM: Vital signs will be entered shortly. On exam, NIH Stroke Scale at 2:30 showed a 4 mostly because of her confusion leading to speech abnormalities. It is unclear whether this was due to the confusion or an aphasia. She had no clear motor deficits. She was alert. She knew her name. She thought she was 38 instead of 58. She did not know the month. She was distractible and intended to perseverate. Cranial nerves II through XII were intact. Facies symmetric. She had full extraocular movements. No clear visual field cuts, but she needed to be continually redirected. She moves all extremities with good power at least 5-/5 and she needed to be redirected. She had no clear pronator drift, but she kept on opening her eyes during the testing. [id number] was intact. Sensation intact to light touch and pin. Reflexes were 2 and equal. Chest: Clear. Cardiovascular: Regular rate and rhythm. Abdomen was soft with positive bowel sounds. DIAGNOSTIC STUDIES/LAB DATA: Her head CT scan showed no acute intracranial pathology. There was osseous metastatic disease noted. Labs are pending. An EEG has just been started. IMPRESSION AND PLAN: This is a difficult case to sort out. Her notes that she has been having what he calls epileptic seizures in the past couple weeks' time, with a history of leptomeningeal carcinoma. It is possible that this was a seizure and that she is postictal, but this is not at all clear. She is clearly improved since what was described when she first came, but she remains significantly confused. We are checking EEG now and we will get a MRI scan on a stat basis. From what the said and what she apparently is saying, intervention such as clot retrieval would be not desired and the oncologist thinks given her prognosis that it would not provide an ongoing benefit even if she was a candidate. Her NIH Stroke Scale at this point is too low, so she would not even be a candidate. In terms of if this was a stroke, there would be reasons not to give tPA and it is unclear at this point whether this aphasia is from a stroke. We are getting an emergent MRI scan to sort this out and make further decisions after that. We are getting an EEG in the interim and loading with Keppra. I am treating her with acyclovir and we are having Oncology stop by officially to help guide us in terms of how much intervention we put her through. She is clearly immunosuppressed and whether she would want a spinal tap and be treated for that I would defer to the oncologist but with this onset of confusion in a immunocompromised patient and lp would be recommended from a neurological point of view unless we find something on MRI scan in a patient where we are doing everything we would definitely do a spinal tap. I have discussed these concerns with Dr. Eng. Thank you for sharing her case. ADDENDUM NO.1: I have several more bits of information on her. Her labs are back. First of all, her EEG shows preliminarily slowing predominantly in the left hemisphere with some sharp activity on the left. We are giving her Keppra and Ativan. Her vital signs are temperature 99.4, pulse of 104, respirations 21 , blood pressure 104/69 currently. Her labs have come back as well per Dr. Eng. I still just have her labs, but she apparently has a significantly low white count and neutrophil count, but hemoglobin and platelet count are normal. She also has an elevated PTT and we are redrawing it. It is unclear whether this is real according to the oncologist or a bad draw. Unable to do her MRI scan currently because they need to take an interview history from her who cannot give it or the also is unavailable and they are trying to contact the currently. We are giving Ativan in addition to the Keppra and we will be seeing how this affects her both clinically and the EEG tracing and again we are awaiting the oncologist to guide the aggressiveness of her treatment. We are adding meningitic doses of antibiotics as well as acyclovir given her white count whether it is real or not that will be determined shortly. ADDENDUM NO.2: I discussed with Dr. David Munoz after evaluating the EEG in the ER before and after Ativan that there was a significant change in the EEG and I suggested that some of her problems may be secondary to subclinical seizures. I discussed with subclinical seizures that optimal treatment would include ongoing video EEG monitoring, which we do not have the capability for. Therefore, if the plan from the oncologist and medical team in terms of her prognosis and her wishes is to give maximum care, then she should be transferred to a facility such as [facility] that they have the capabilities of video EEG monitoring. Also, I rediscussed the issue that if she does not truly have a coagulopathy, then she should have a spinal tap unless the oncologist and family think that her wishes would be that she should not be treated aggressively in this situation. Thank you for sharing her case. [id number]/[facility] #: [id number]/[facility] #: [id number] A2- [id number]/[facility] #: [id number] HAN
--- NOTE | 2019-06-29 17:07 | CONS ---
CONSULTATION REPORT: DATE OF CONSULT: 06/29/19 PATIENT OF: Dr. Nagel and Dr. Eng. HISTORY OF PRESENT ILLNESS: I was asked to consult on this 58-year-old woman with acute change in mental status. Her was with her this afternoon and notes that she became DICTATION ENDS HERE [id number]/[facility] #: [id number] MTDD
[2019-06-29] MEDS ORDERED: Gadoteridol* (CONTRAST) 279.3 MG/ML 10 ML IV ONE (17:14)
--- NOTE | 2019-06-29 17:15 | CONS ---
CONSULTATION REPORT: ADDENDUM: I have several more bits of information on her. Her labs are back. First of all, her EEG shows preliminarily slowing predominantly in the left hemisphere with some sharp activity on the left . We are giving her Keppra and Ativan. Her vital signs are temperature 99.4, pulse of 104, respirat ions 21, blood pressure 104/69 currently. Her labs have come back as well per Dr. Eng. I stil l just have her old labs, but she apparently has a significantly low white count and neutrophil count , but hemoglobin and platelet count are normal. She also has an elevated PTT and we are redrawing it . It is unclear whether this is real according to the oncologist or a bad draw. Unable to do her MR I scan currently because they need to take an interview history from her who cannot give it or the [facility] also is unavailable and they are trying to contact the currently. We are giving Ativan in addition to the Keppra and we will be seeing how this affects her both clinically and the EEG trac ing and again we are awaiting the oncologist to guide the aggressiveness of her treatment. We are ad ding meningitic doses of antibiotics as well as acyclovir given her white count whether it is real or not that will be determined shortly. [id number]/[facility] #: [id number]
--- NOTE | 2019-06-29 18:13 | CONS ---
CONSULTATION REPORT: ADDENDUM: I discussed with Dr. David Munoz after evaluating the EEG in the ER before and after At christa that there was a significant change in the EEG and I suggested that some of her problems may be secondary to subclinical seizures. I discussed with subclinical seizures that optimal treatment woul d include ongoing video EEG monitoring, which we do not have the capability for. Therefore, if the p valentina from the oncologist and medical team in terms of her prognosis and her wishes is to give maximum care, then she should be transferred to a facility such as [facility] that they have the capa bilities of video EEG monitoring. Also, I rediscussed the issue that if she does not truly have a co agulopathy, then she should have a spinal tap unless the oncologist and family think that her wishes would be that she should not be treated aggressively in this situation. Thank you for sharing her case. [id number]/[facility] #: [id number]
--- NOTE | 2019-06-29 18:23 | CONSULT ---
Consultation - Reason for Consultation Reason for Consultation: Metastatic ER+ Breast cancer admitted with progressive mental status changes Ordering Provider: Syeda Eng Chief Complaint: Altered mental status History of Present Illness: This 58 year old woman is followed by Dr Nagel for a diagnosis of Metastatic breast cancer. Review of records reveals that she has known metastatic breast cancer as well as a biopsy proven NSCLC. She presented in 2006 with a T3 6 cm grade III IDC 3/6 nodes positive. Post mastectomy, 6 cycles of adjuvant chemotherapy followed by Letrozole. Records do not note adjuvant radiotherapy. 02/2017 lung biopsy consistent with adenocarcinoma of lung TTF1 and Napsin +, marrow revealed the presence of metastatic breast cancer. She was subsequently treated with Ibrance and Faslodex then 06/2017 Taxol post 24 cycles. 04/2019 she developed headache and syncope with HEAD CASHIER MRI c/w Leptomeningeal spread of disease. She was changed to Faslodex in combination with Abemaciclib and received WBRT 3000 cgy initiated 05/08/2019. It was planned for future restaging with HEAD CASHIER MRI and additional CT imaging. I have 05/29 labs demonstrating an adequate WBC of 5.8 and ANC 4400 She has now been admitted to the ER with a progressive change in mental status since approximately 1 pm. Notes also suggest possible seizure activity over the prior 2-3 days . The patient is currently not alert and I cannot obtain additional history from her . She has been evaluated by Neurology who notes possible ongoing seizure activity and she has been initiated on antiepileptics. Initial TEMPERATURE 99.4. , Antibiotics have been started to cover for meningitis including Ceftriaxone, Vancomycin, Ampicillin as well as acyclovir for viral coverage. Initial PTT 102 with repeat 34.6, PTinr 1.29 WBC 0.5 ANC0 with repeat similar Hg 11.[address] head reported without acute processes MRI has just returned with some improvement in leptomeningeal disease vermis and slightly more enlargement in the ventricles. Allergies/Medications Allergies/Adverse Reactions: Allergies Allergy/AdvReac Type Severity Reaction Status Date / Time aspirin Allergy Intermediate Facial Verified 03/30/19 06:18 Redness/Flushing bee venom protein (honey bee) Allergy Mild Hives Verified 03/30/19 06:18 History - Past Medical History Hx Arthritis: No Hx Blood Dyscrasias: Yes - cytopenias Hx Cancer: Yes Review of Systems - Review of Systems General Comments: Cannot be currently obtained given patient's current mental status Physical Exam - Physical Exam Physical Examination: Moves to voice and touch Speech garbled Neck appears supple PERRLA Oropharynx somewhat dry Abdomen soft Appears to move all extremities but full neurologic exam cannot be performed Cardiac mild tachycardia Results - Lab Results Lab Results: 06/29/19 06/29/19 06/29/19 14:42 14:42 14:42 WBC RBC Hgb Hct MCV MCH MCHC RDW Plt Count MPV Neut % (Auto) Lymph % (Auto) [place] % (Auto) Eos % (Auto) Baso % (Auto) Absolute Neuts (auto) Absolute Lymphs (auto) Absolute Monos (auto) Absolute Eos (auto) Absolute Basos (auto) Absolute Nucleated RBC Nucleated RBC % INR (Anticoag Therapy) 1.29 H APTT 101.6 H* Sodium 132 L Potassium 2.8 L Chloride 92 L Carbon Dioxide 33 H Anion Gap 7 BUN 9 Creatinine 0.74 Est GFR ( Amer) 97.9 Est GFR (Non-Af Amer) 80.9 BUN/Creatinine Ratio 12.2 Glucose 97 POC Glucose (mg/dL) Lactic Acid 1.0 Calcium 8.7 Magnesium 2.1 Total Bilirubin 0.40 AST 38 ALT 37 Alkaline Phosphatase 61 Troponin I 0.05 H* Total Protein 5.8 L Albumin 3.3 Globulin 2.5 Albumin/Globulin Ratio 1.3 Triglycerides 226 Cholesterol 193 LDL Cholesterol 99 HDL Cholesterol 49.2 06/29/19 06/29/19 06/29/19 14:43 15:04 15:40 WBC 0.5 L RBC 3.53 L Hgb 11.6 L Hct 33 L MCV 93 MCH 33 H MCHC 35 RDW 17 H Plt Count 208 MPV 6.5 L Neut % (Auto) 7.6 Lymph % (Auto) 79.5 [place] % (Auto) 7.4 Eos % (Auto) 2.3 Baso % (Auto) 3.2 Absolute Neuts (auto) 0.0 L* Absolute Lymphs (auto) 0.4 L Absolute Monos (auto) 0.0 Absolute Eos (auto) 0.0 Absolute Basos (auto) 0.0 Absolute Nucleated RBC Not Reportable Nucleated RBC % Not Reportable INR (Anticoag Therapy) APTT 34.6 Sodium Potassium Chloride Carbon Dioxide Anion Gap BUN Creatinine Est GFR ( Amer) Est GFR (Non-Af Amer) BUN/Creatinine Ratio Glucose POC Glucose (mg/dL) 112 H Lactic Acid Calcium Magnesium Total Bilirubin AST ALT Alkaline Phosphatase Troponin I Total Protein Albumin Globulin Albumin/Globulin Ratio Triglycerides Cholesterol LDL Cholesterol HDL Cholesterol 06/29/19 15:40 WBC 0.5 L RBC 3.52 L Hgb 11.5 L Hct 33 L MCV 94 MCH 33 H MCHC 35 RDW 17 H Plt Count 196 MPV 6.6 L Neut % (Auto) 6.8 Lymph % (Auto) 84.5 [place] % (Auto) 7.7 Eos % (Auto) 1.0 Baso % (Auto) 0.0 Absolute Neuts (auto) 0.0 L* Absolute Lymphs (auto) 0.4 L Absolute Monos (auto) 0.0 Absolute Eos (auto) 0.0 Absolute Basos (auto) 0.0 Absolute Nucleated RBC Not Reportable Nucleated RBC % Not Reportable INR (Anticoag Therapy) APTT Sodium Potassium Chloride Carbon Dioxide Anion Gap BUN Creatinine Est GFR ( Amer) Est GFR (Non-Af Amer) BUN/Creatinine Ratio Glucose POC Glucose (mg/dL) Lactic Acid Calcium Magnesium Total Bilirubin AST ALT Alkaline Phosphatase Troponin I Total Protein Albumin Globulin Albumin/Globulin Ratio Triglycerides Cholesterol LDL Cholesterol HDL Cholesterol Assessment and Plan Impression: Metastatic breast cancer and also nonsmall cell lung cancer. 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 Her presentation is suggestive of intermittent seizure activity although infection cannot be definitively excluded at this time. Given that a reversible factor contributing to her presentation has not been excluded and she has recently completed WBRT and initiated Faslodex and Abemaciclib I would favor maintaining an aggressive approach with antiepileptics , neurologic monitoring and antibiotics. If this requires a higher level of care for continuous EEG would pursue this. Also future consideration of CSF analysis dependent upon follow up Neutrophils , clinical status. Her Neutropenia is likely secondary to Abemaciclib ( I cannot reliably obtain a medication history at this time from her to determine her last dose or if she was taking the medication properly) Also consider infection as contributory. Given that HEAD CASHIER infection has not been excluded and the gravity of her presentation initiate Neupogen 480 mcg daily with monitoring of the CBC. Maintain Neutropenic precautions . Continue broad spectrum antibiotics and follow up cultures . Reviewed in detail with ER Physician and nursing staff Will follow with you
[2019-06-29] MEDS ORDERED: FILGRASTIM-SNDZ* 480 MCG/0.8 ML SYRINGE SUBCUT SCH (19:00)
[2019-06-29 20:03] LABS: Troponin I 0.05 ng/mL (<0.03)
[2019-06-29 20:51] VITALS: BP 123/89
--- NOTE | 2019-06-30 03:45 | EEG ---
ELECTROENCEPHALOGRAPHY: DATE OF STUDY: 06/29/19 - EMERGENCY DEPT PATIENT OF: Dr. Munoz and Dr. Eng. CLINICAL PROBLEM: This is a 58-year-old woman with known breast cancer iincluding leptomeningeal carcinomatosis. She was, according to her , having shaking episodes that he said looked like epileptic seizures this afternoon without any clearcut such spells. She became confused with some improvement over the next couple of hours. She was still confused and having difficulty with orientation, although she did know her name. MEDICATIONS: Include Keppra and Ativan given during this tracing. Home meds include: 1. Myrbetriq. 2. Lasix. 3. Citalopram. 4. Oxycodone. 5. Morphine. 6. Verzenio. Medicines in the ER included: 1. Rocephin. 2. Zofran. 3. Ampicillin. 4. Keppra. 5. Ativan. 6. Potassium. 7. Vancomycin. REPORT: Background cerebral activity consists of admixed delta, theta, and alpha range frequencies, which is of moderate to high amplitude with some admixed sharp waves appearing out of the left head region. Ativan is given during this tracing, and shortly after, background has less high amplitude delta activity and more theta activity. There is of note some bilateral beta activity arising out of both temporal lobes following the Ativan; this may or may not be medication effect. There was no improvement in the patient clinically following the Ativan. The patient became sleepy after the Ativan was given. CLINICAL IMPRESSION: This EEG with the patient confused is abnormal because of high amplitude slowing more prominent in the left hemisphere than the right with some admixed sharp activity there. Even though there was no clear-cut subclinical seizures, this EEG changed significantly after the Ativan was given. There was more of a predominance of theta activity and the sharp waves were not noted. This was not accompanied by a clinical change. The beta activity seen after the Ativan may be secondary to the Ativan. [id number]/[facility] #: [id number] [facility]
== END 2019-06-29 20:49 | disposition short-term general hospital (02) ==
LOC: ED 14:07
DX: R41.82 Altered mental status, unspecified (principal); D70.9 Neutropenia, unspecified; C50.911 Malignant neoplasm of unspecified site of right female breast; C79.32 Secondary malignant neoplasm of cerebral meninges; C78.00 Secondary malignant neoplasm of unspecified lung; C79.51 Secondary malignant neoplasm of bone; R00.0 Tachycardia, unspecified; R47.89 Other speech disturbances; F32.9 Major depressive disorder, single episode, unspecified; Z79.52 Long term (current) use of systemic steroids; Z79.899 Other long term (current) drug therapy; Z88.6 Allergy status to analgesic agent; Z91.030 Bee allergy status; Z87.891 Personal history of nicotine dependence
CPT/HCPCS: 36415; 70450; 70553; 71045; 80053; 80061; 83605; 83735; 84484; 85025; 85060; 85610; 85730; 93005; 95816; 96365; 96366; 96372; 96375; 99285; A9270-GY; A9579; J0133; J0290; J0696; J1953; J2060; J3370; J3480; Q5101